=== PATIENT | female | born 1955 | race Caucasian/White ===

== ENCOUNTER 2021-03-24 21:01 | Emergency (ER) | payer OTHER, SELFPAY ==
--- NOTE | ~2021-03-24 | XR_ITS ---
XR chest 1V 03/24/2021 21:38 Indication: Weakness. Unable to move left side of body. Procedure: AP view of the chest Comparison: Comparison to multiple prior studies sequentially, with oldest reviewed study dated 06/13. Findings: Shallow inspiration with crowding of the pulmonary vessels. Left basilar airspace disease. Right-sided ventriculoperitoneal shunt. No significant effusion or pneumothorax. No acute osseous abn ormality. Impression: 1: Left basilar airspace disease, suspicious for pneumonia. Reviewed, dictated and finalized at location A. Impression: 1: Left basilar airspace disease, suspicious for pneumonia.
[2021-03-24 21:04] VITALS: BP 103/64; PULSE 90; RESP 16; TEMP 37.5; O2SAT 99
--- NOTE | 2021-03-24 21:07 | ECG_ITS ---
Measurements Intervals [place] Rate: 94 P: 28 NE: 168 QRS: 1 QRSD: 81 T: 10 QT: 331 QTc: 415 Interpretive Statements SINUS RHYTHM LOW QRS VOLTAGE IN PRECORDIAL LEADS DELAYED PRECORDIAL R/S TRANSITION BASELINE WANDER- II, III BORDERLINE ECG Electronically Signed On 03-25-2021 8:16:56 CDT by Richard Neal D.O.
[2021-03-24 21:52] LABS: Hematocrit 40.1 % (37.0-47.0); Hemoglobin 13.4 g/dL (12.0-15.0); Immature Granulocyte Absolute 0.01 K/mm3 (0.00-0.031); Immature Granulocyte Percent A 0.2 % (0-0.5); Lymphocytes Absolute Auto 0.51 K/mm3 (0.9-3.2); Lymphocytes Percent Auto 12.1 % (18.3-44.2); Mean Corpuscular HGB Conc 33.4 g/dl (32-36); Mean Corpuscular Hemoglobin 30.3 pg (26-34); Mean Corpuscular Volume 90.7 fl (80-100); Mean Platelet Volume 10.1 fl (7.4-10.4); Monocytes Absolute Auto 0.5 K/mm3 (0.1-0.6); Monocytes Percent Auto 11.7 % (2.6-8.5); Neutrophils Absolute Auto 3.2 K/mm3 (1.3-6.7); Platelet Count Result 174 k/mm3 (150-375); Red Blood Count 4.42 M/mm3 (4.2-5.4); Red Cell Distribution Width 12.7 % (11.5-14.5); White Blood Count 4.2 K/mm3 (4.5-10.0)
[2021-03-24 22:01] LABS: Alanine Aminotransferase 24 U/L (4-35); Albumin Level 4.4 g/dL (3.5-5.1); Alkaline Phosphatase 94 U/L (38-126); Anion Gap 9 mmol/L (8-16); Aspartate Amino Transferase 36 U/L (14-36); Bilirubin,Total 0.9 mg/dL (0.2-1.3); Blood Urea Nitrogen 13 mg/dL (7-17); Calcium 9.2 mg/dL (8.4-10.2); Carbon Dioxide 24 mmol/L (22-30); Chloride 99 mmol/L (98-107); Estimated CRCL calculation 67 ml/min; Estimated Glomerular Filt Rate > 60; Glucose 156 mg/dL (65-105); Potassium 5.2 mmol/L (3.4-5.0); Sodium 132 mmol/L (137-145)
[2021-03-25 00:51] VITALS: BP 124/69; PULSE 94; RESP 16; TEMP 37.5; O2SAT 92
--- NOTE | 2021-03-25 02:38 | ED.GENADULT ---
HPI - General Adult General Chief complaint: Weakness Stated complaint: weakness Time Seen by Provider: 03/25/21 02:16 History of Present Illness HPI narrative: Patient 65-year-old female presents emerged from with chief complaint of generalized weakness. The patient reports she has history of MS and reports that over the last 2 days she has been weaker than normal. Patient states prior to arrival in the emergency department she was so weak that she could barely hold herself up in her wheelchair. Patient reports that several days ago she started having a scratchy throat also has had some nasal discharge and also has had a cough. The patient reports she has been vaccinated for the COVID-19 virus using the [employer] Rajan vaccine. The patient reports that she has had no vomiting or diarrhea. Patient reports that she feels a little bit better at this time. Related Data Home Medications Medication Instructions Recorded Confirmed atorvastatin 10 mg tablet 20 mg PO DAILY tablet 12/05/20 calcium carbonate 600 mg (1,500 1 tablet PO DAILY tablet 12/05/20 12/05/20 mg)-vitamin D3 400 unit tablet isosorbide mononitrate 10 mg tablet 10 mg PO BID 12/05/20 12/05/20 Allergies Allergy/AdvReac Type Severity Reaction Status Date / Time ciprofloxacin Allergy Unknown Unknown Verified 12/05/20 14:09 hydrocortisone Allergy Unknown Unknown Verified 12/05/20 14:09 No Known Drug Allergies Allergy Unknown X Verified 12/05/20 14:09 Review of Systems Review of Systems: Narrative: A 10 system review of systems was completed on the patient and is negative except for what is stated in the HPI. Nursing and ancillary documentation was reviewed. 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, one eye low vision Osteomyelitis Pathological fracture, left femur, sequela Recurrent UTI Unable to ambulate Surgical History Surgical History Intracranial shunt Family History Family History Father Family history of diabetes mellitus in first degree relative Family history of heart disease in male family member before age 55 Mother Family history of diabetes mellitus in first degree relative Other Family history of tuberculosis Social History Social History Smoking packs per day: 1 Smoking cigarettes per day: 20.0 Years smoked: 20 Smoking pack-years: 20.00 Smoking status: Never smoker Tobacco type: cigarettes Second hand tobacco smoke exposure: No Smoking end date: 09/19/05 Alcohol intake: current Alcohol use details: rarely Substance use: never Substance use type: does not use Additional living arrangements comments: pt lives with Gender identity (if verbalized by the patient): Female Exam Narrative: Exam Narrative: GENERAL: Well-appearing, well-nourished, and in no acute distress. HEAD: Normocephalic, atraumatic. EYES: PERRLA and EOMI. ENT: Nares clear, no rhinorrhea or epistaxis. Mucous membranes moist. NECK: Supple. CHEST: Clear to auscultation. No respiratory distress. HEART: Regular rate and rhythm. No murmur heard. Normal peripheral pulses. ABDOMEN: Soft, nontender, nondistended, normal active bowel sounds. EXTREMITIES: Normal range of motion. No edema. SKIN: Warm, dry, no rash. NEURO: No focal deficits. Alert and oriented x3. PSYCH: Normal mood and affect. Course Course Emergency Course: Patient's chest x-ray shows evidence of a developing pneumonia. Patient's laboratory studies did not show any significant abnormalities. Currently the patient is afebrile vital signs are otherwise stable and s
[2021-03-25 03:41] VITALS: BP 118/66; PULSE 89; RESP 18; O2SAT 99
== END 2021-03-25 03:44 | disposition home or self-care (01) ==
PROVIDERS: Emergency Provider Emergency Medicine; PCP Family Medicine
DX: J18.9 Pneumonia, unspecified organism (principal); G35 Multiple sclerosis; E11.9 Type 2 diabetes mellitus without complications; E03.9 Hypothyroidism, unspecified; M86.9 Osteomyelitis, unspecified; Z87.440 Personal history of urinary (tract) infections; Z87.891 Personal history of nicotine dependence; Z79.84 Long term (current) use of oral hypoglycemic drugs; R94.31 Abnormal electrocardiogram [ECG] [EKG]
CPT/HCPCS: 36415; 71045; 80053; 85025; 93005; 99283

== ENCOUNTER 2021-03-28 09:08 | Inpatient (IN) | payer MEDICARE, OTHER, SELFPAY ==
[2021-03-28] VITALS (15 sets, daily range): BP systolic 126–157; BP diastolic 55–91; PULSE 79–121; RESP 20–28; TEMP 36.2–38.9; O2SAT 87–96; BMI 38.7
--- NOTE | ~2021-03-28 | XR_ITS ---
EXAMINATION: XR chest 1V portable DATE: 04/09/2021 01:58 INDICATION: High peak pressures TECHNIQUE: frontal view of the chest was obtained. COMPARISON: Chest radiograph dated 04/08/2021 FINDINGS: Endotracheal tube tip 2.9 cm above the ruben. Nasogastric tube extends below the gastroesophageal j unction with distal tip collimated off the study. Right upper extremity peripherally inserted central venous catheter (PICC) tip at the cephalad superior vena cava. Additional catheter tubing extending from the cephalad margin of the [id number] at the right neck to the caudal margin in the right up per quadrant likely representing a ventriculoperitoneal shunt. Airspace opacities and peribronchial cuffing in the bilateral mid and lower lung zones, slightly incr eased on the right. No pneumothorax or pleural effusion. The cardiomediastinal silhouette is normal. IMPRESSION: 1. Opacities and peribronchial cuffing in the bilateral mid and lower lung zones which could represen t mild pulmonary edema or pneumonia. Reviewed, dictated and finalized at location A. IMPRESSION: 1. Opacities and peribronchial cuffing in the bilateral mid and lower lung zone s which could represent mild pulmonary edema or pneumonia.
--- NOTE | ~2021-03-28 | XR_ITS ---
EXAMINATION: XR abdomen NG/feed tube insert INDICATION: OG placement TECHNIQUE: Portable AP KUB-NG at 1009 hours COMPARISON: 10/04/2017 and portable chest radiograph at zero 951 FINDINGS: The repositioned OG tube ends in the stomach. Diffuse lung disease is unchanged. A right up per extremity PICC ends in the superior vena cava. IMPRESSION: 1. OG tube in stomach. Reviewed, dictated and finalized at location A. IMPRESSION: 1. OG tube in stomach.
--- NOTE | ~2021-03-28 | XR_ITS ---
XR abdomen/kub 1V 04/14/2021 10:43 Indication: Vomiting Procedure: KUB Comparison: No prior studies for comparison. Findings: Bowel gas pattern is nonspecific with moderate gas throughout the colon. No abnormal calcif ications. Mild lumbar spondylosis.. NG tube tip in the stomach. There is a catheter in the pelvis. Impression: 1: Nonspecific bowel gas pattern. Moderate gas in the colon, possibly ileus. Reviewed, dictated and finalized at location A. Impression: 1: Nonspecific bowel gas pattern. Moderate gas in the colon, possibly ileus.
--- NOTE | ~2021-03-28 | XR_ITS ---
EXAMINATION: XR chest 1V portable DATE: 04/06/2021 06:34 INDICATION: Respiratory failure TECHNIQUE: frontal view of the chest was obtained. COMPARISON: Chest radiograph dated 04/05/2021 FINDINGS: Endotracheal tube tip 1.4 cm above the ruben. Nasogastric tube extends below into the stomach with distal tip collimated off the study. Right upper extremity peripherally inserted central venous gilles ter (PICC) tip at the mid superior vena cava. Portion of a likely right ventriculoperitoneal shunt e xtends from the right neck across the chest to the right upper quadrant. Interval increase in diffuse interstitial pattern throughout both lungs with a few peripheral Chuck B-lines consistent with mild pulmonary edema. Subtle more patchy groundglass opacities throughout the right lung and left mid and lower lung zones which based on prior CT more likely to reflect unchange d underlying COVID pneumonia. No pleural effusion or pneumothorax. The cardiomediastinal silhouette i s normal. Visualized bones and soft tissues are unremarkable. IMPRESSION: 1. Increase in diffuse bilateral lung disease likely representing unchanged COVID pneumonia with incr easing superimposed mild pulmonary edema. Reviewed, dictated and finalized at location A. IMPRESSION: 1. Increase in diffuse bilateral lung disease likely representing unchanged COV ID pneumonia with increasing superimposed mild pulmonary edema.
--- NOTE | ~2021-03-28 | XR_ITS ---
XR chest 1V portable 04/15/2021 05:53 Indication: Covid Pneumonia Procedure: AP portable chest Comparison: Comparison to multiple prior studies sequentially, with oldest reviewed study dated 04/11. Findings: PICC line tip in the SVC. Endotracheal tube tip 4.3 cm above the ruben. Heart size normal. Bilateral infiltrates of the mid and lower lung zones. No pneumothorax. No acute osseous abnormality . Impression: 1: Patchy bilateral infiltrates of the mid and lower lung zones, compatible with pneumonia. Reviewed, dictated and finalized at location A. Impression: 1: Patchy bilateral infiltrates of the mid and lower lung zones, compatible wit h pneumonia.
--- NOTE | ~2021-03-28 | XR_ITS ---
XR chest 1V portable 04/14/2021 05:54 Indication: Acute respiratory failure Procedure: AP portable chest Comparison: Comparison to multiple prior studies sequentially, with oldest reviewed study dated 04/10. Findings: Right-sided ventriculoperitoneal shunt. NG tube in the stomach. Endotracheal tube 3.8 cm ab ove the ruben. Heart size is normal. Diffuse bilateral airspace disease has improved. No significant effusion or pneumothorax. Impression: 1: Improving diffuse bilateral airspace disease which may represent resolving edema or pneumonia. Reviewed, dictated and finalized at location A. Impression: 1: Improving diffuse bilateral airspace disease which may represent resolving e roger or pneumonia.
--- NOTE | ~2021-03-28 | XR_ITS ---
EXAMINATION: XR chest 1V portable DATE: 04/02/2021 08:29 INDICATION: Respiratory failure. COVID-19 pneumonia. TECHNIQUE: A single frontal view of the chest was obtained. COMPARISON: Chest single view 04/01/2021, chest CT 03/31/2021 FINDINGS: There are patchy airspace opacities in all right lung zones and in left mid and lower lung zones with a lower lung predominance. No pleural effusion or pneumothorax. The heart size is normal. A right upper extremity peripherally inserted central venous catheter (PICC) is seen with tip in the superior vena cava. A right-sided ventriculoperitoneal shunt is noted. IMPRESSION: 1. Stable diffuse lung disease, consistent with COVID-19 pneumonia. Reviewed, dictated and finalized at location A.
--- NOTE | ~2021-03-28 | CT_ITS ---
EXAMINATION: CTA chest PE protocol DATE: 03/31/2021 14:20 INDICATION: Shortness of breath. TECHNIQUE: Computed tomography angiography (CTA) of the chest was performed with 100 mL Omnipaque-350 intravenous contrast timed to evaluate the pulmonary arteries. Coronal maximum intensity projection 3D-reconstructions were created by the technologist. Automated exposure control and iterative reconst ruction technique were employed. The dose-length product was 781.41 mGy-cm. COMPARISON: Chest CT 11/25/2017 FINDINGS: There are patchy groundglass opacities and crazy paving involving all lobes. There are depe ndent airspace opacities in the lower lobes and right upper lobe. No pleural effusion. The heart size is normal. There is a small pericardial effusion. There is no pulmonary embolus. There is mild media stinal and right hilar lymphadenopathy, likely reactive. Calcified mediastinal lymph nodes are consis tent with old granulomatous disease. Calcifications in the liver and spleen are consistent with old g ranulomatous disease. There is a gallstone in the gallbladder, which is normal in size. There is a ri ght-sided ventriculoperitoneal shunt. There is mild thoracic spondylosis. There is mild chronic heigh t loss of multiple vertebral bodies. IMPRESSION: 1. No pulmonary embolus. 2. Diffuse lung disease, consistent with COVID-19 pneumonia. 3. Small pericardial effusion. 4. Mild mediastinal and right hilar lymphadenopathy, likely reactive. Reviewed, dictated and finalized at location A.
--- NOTE | ~2021-03-28 | XR_ITS ---
EXAMINATION: XR chest ET placement INDICATION: Endotracheal tube placement TECHNIQUE: Portable AP chest at 0959 hours COMPARISON: 0808 hours FINDINGS: An endotracheal tube has been inserted which ends 1.3 cm above the ruben. A right upper ex tremity PICC ends with its tip in the superior vena cava. Patchy bilateral airspace opacities persist without significant change. The heart size is normal. A ventriculoperitoneal shunt catheter courses over the right hemithorax. The nasogastric tube projects in the cervical region. IMPRESSION: 1. Endotracheal tube ending approximately 1.3 cm above the ruben. 2. Nasogastric tube projecting in the cervical region. 3. Diffuse lung disease without significant change, consistent with pneumonia and/or pulmonary edema. Reviewed, dictated and finalized at location A. IMPRESSION: 1. Endotracheal tube ending approximately 1.3 cm above the ruben. 2. Nasogastric tube projecting in the cervical region. 3. Diffuse lung disease without significant change, consistent with pneumonia a nd/or pulmonary edema.
--- NOTE | ~2021-03-28 | XR_ITS ---
EXAMINATION: XR chest 1V portable DATE: 04/08/2021 05:49 INDICATION: Pneumonia and acute respiratory failure TECHNIQUE: frontal view of the chest was obtained. COMPARISON: Chest radiograph dated 04/07/2021 FINDINGS: Endotracheal tube tip 1.6 cm above the ruben. Nasogastric tube extends below the left hemidiaphragm with distal tip collimated off the study. Right upper extremity peripherally inserted central venous catheter (PICC) tip at the mid superior vena cava. Partially visualized likely ventriculoperitoneal shunt extending from the cephalad margin of the [id number] at the right neck to the inferior philippe in of the right upper quadrant. Again seen are patchy airspace opacities throughout both lungs with interval progression in the left perihilar region. No pleural effusion or pneumothorax. The cardiomediastinal silhouette is normal. IMPRESSION: 1. Diffuse bilateral lung disease with interval worsening in the left perihilar region which could re present pneumonia and/or pulmonary edema. Reviewed, dictated and finalized at location A. IMPRESSION: 1. Diffuse bilateral lung disease with interval worsening in the left perihilar region which could represent pneumonia and/or pulmonary edema.
--- NOTE | ~2021-03-28 | XR_ITS ---
XR chest 1V portable DATE: 04/12/2021 05:30 INDICATION: Covid 19 pneumonia, acute respiratory failure TECHNIQUE: Portable AP chest on 04/12/2021 at 0510 hours COMPARISON: 08/08/2021 portable AP chest at 0510 hours FINDINGS: ET tube is identified in position. NG tube in stomach. Right upper extremity PIC catheter overlies superior vena cava. There are increased extensive diffuse bilateral pulmonary infiltrates. Heart size appears normal. No pleural effusion or pneumothorax is evident. IMPRESSION: Increased diffuse bilateral pulmonary infiltrates; differential diagnosis includes pneumo amelia and possibly superimposed pulmonary edema. Reviewed, dictated and finalized at location A. IMPRESSION: Increased diffuse bilateral pulmonary infiltrates; differential navin gnosis includes pneumonia and possibly superimposed pulmonary edema.
--- NOTE | ~2021-03-28 | XR_ITS ---
EXAMINATION: XR chest 2V DATE: 03/28/2021 09:39 INDICATION: Shortness of breath. TECHNIQUE: Frontal and lateral views of the chest were obtained. COMPARISON: Chest single view 706/21, chest CT 11/25/2017 FINDINGS: There are airspace opacities in the mid and lower lung zones. No pleural effusion or pneumo thorax. The heart size is normal. There is a right-sided ventriculoperitoneal shunt. IMPRESSION: 1. Worsened airspace opacities in the mid and lower lung zones, consistent with atelectasis versus pn eumonia. Reviewed, dictated and finalized at location A. IMPRESSION: 1. Worsened airspace opacities in the mid and lower lung zones, consistent with atelectasis versus pneumonia.
--- NOTE | ~2021-03-28 | XR_ITS ---
EXAMINATION: XR chest 1V portable DATE: 04/10/2021 06:38 INDICATION: COVID 19 pneumonia. Acute respiratory failure. TECHNIQUE: frontal view of the chest was obtained. COMPARISON: Chest radiograph dated FINDINGS: Endotracheal tube tip 4.0 cm above the ruben. Nasogastric tube extends below the gastroesophageal ju nction with distal tip collimated off the study. Right upper extremity peripherally inserted central venous catheter (PICC) tip at the cephalad superior vena cava. Additional catheter tubing extending f rom the cephalad margin of the [id number] at the right neck to the caudal margin in the right uppe r quadrant likely representing a ventriculoperitoneal shunt. Diffuse increased interstitial pattern throughout both lungs with some improvement in the prior patch y airspace opacities. No pleural effusion or pneumothorax. The cardiomediastinal silhouette is normal . IMPRESSION: 1. Diffuse increased interstitial pattern with some improvement in more focal patchy airspace opaciti es most likely improving mild to moderate pulmonary edema with differential including pneumonia. Reviewed, dictated and finalized at location A. IMPRESSION: 1. Diffuse increased interstitial pattern with some improvement in more focal p atchy airspace opacities most likely improving mild to moderate pulmonary edema with differential including pneumonia.
--- NOTE | ~2021-03-28 | XR_ITS ---
XR chest 1V portable 04/16/2021 05:30 Indication: Respiratory failure Procedure: AP portable chest Comparison: Comparison to multiple prior studies sequentially, with oldest reviewed study dated 04/12. Findings: Endotracheal tube tip 3.4 cm above the ruben. NG tube in the stomach. Right-sided ventriculoperitone al shunt. Heart size normal. Bilateral airspace disease is unchanged. Impression: 1: Stable diffuse bilateral airspace disease which may represent edema or pneumonia. Reviewed, dictated and finalized at location A. Impression: 1: Stable diffuse bilateral airspace disease which may represent edema or pneum onia.
--- NOTE | ~2021-03-28 | XR_ITS ---
XR chest 1V portable 04/13/2021 05:45 Indication: Respiratory failure Procedure: AP portable chest Comparison: Comparison to multiple prior studies sequentially, with oldest reviewed study dated 04/09. Findings: Right subclavian PICC line tip in the SVC. Endotracheal tube tip 4.2 cm above the ruben. E xtensive bilateral infiltrates of the mid and lower lung zones. There is a right sided shunt catheter . No significant effusion or pneumothorax. NG tube in the stomach. Impression: 1: Persistent airspace disease predominantly involving the mid and lower lung zones which may represe nt pneumonia or pulmonary edema. Reviewed, dictated and finalized at location A. Impression: 1: Persistent airspace disease predominantly involving the mid and lower lung z ones which may represent pneumonia or pulmonary edema.
--- NOTE | ~2021-03-28 | US_ITS ---
EXAMINATION: US venous doppler [facility] DATE: 03/29/2021 08:46 INDICATION: Lower limb edema. TECHNIQUE: Grayscale ultrasound images without and with compression and Doppler ultrasound images of the bilateral lower extremity veins were obtained. COMPARISON: Ultrasound 11/25/2017 FINDINGS: The visualized portions of right common femoral vein, profunda (deep) femoral vein, femoral vein, pop liteal vein, posterior tibial veins, and greater saphenous vein outflow are patent. The visualized portions of left common femoral vein, profunda femoral vein, femoral vein, popliteal v ein, posterior tibial veins, and greater saphenous vein outflow are patent. IMPRESSION: 1. No deep venous thrombosis. Reviewed, dictated and finalized at location A.
--- NOTE | ~2021-03-28 | XR_ITS ---
EXAMINATION: XR chest 1V portable INDICATION: Respiratory failure TECHNIQUE: Portable AP chest at 0524 hours COMPARISON: 04/06/2021 FINDINGS: The endotracheal tube ends approximately 3.6 cm above the ruben. The nasogastric tube is f ollowed as far as the stomach. Its tip is beyond the inferior margin of the radiograph. A right upper extremity PICC ends with its tip in the midsuperior vena cava. Ventriculoperitoneal shunt catheter t ubing courses over the right hemithorax. Diffuse airspace opacities persist in all lung zones with sl ight worsening in the upper lung zones. There is no pleural effusion or pneumothorax. The cardiomedia stinal silhouette is stable. IMPRESSION: 1. Diffuse lung disease with interval worsening in the upper lung zones, consistent with pneumonia an d/or pulmonary edema and/or acute respiratory distress syndrome (ARDS). Reviewed, dictated and finalized at location D. IMPRESSION: 1. Diffuse lung disease with interval worsening in the upper lung zones, consis tent with pneumonia and/or pulmonary edema and/or acute respiratory distress sy ndrome (ARDS).
--- NOTE | ~2021-03-28 | XR_ITS ---
EXAMINATION: XR chest 1V portable DATE: 04/01/2021 06:01 INDICATION: COVID-19 pneumonia. TECHNIQUE: A single frontal view of the chest was obtained. COMPARISON: Chest 2 views 03/28/2021 FINDINGS: There are airspace opacities and interstitial opacities in all right lung zones and in left mid and lower lung zones. No pleural effusion or pneumothorax. The heart size is normal. A right-stella ed ventricular peritoneal shunt is noted. IMPRESSION: 1. Worsened diffuse lung disease, consistent with COVID-19 pneumonia. Reviewed, dictated and finalized at location A.
--- NOTE | ~2021-03-28 | XR_ITS ---
XR chest 1V portable DATE: 04/11/2021 05:32 INDICATION: Acute respiratory failure. Covid 19 pneumonia TECHNIQUE: Portable AP chest on 04/07/2021 at 0510 hours COMPARISON: 04/10/2021 portable AP chest at 0624 hours FINDINGS: ET tube tip in satisfactory position 2 cm above ruben. NG tube in stomach. Right upper extremity PIC catheter tip overlies the upper aspect of the superior vena cava. Diffuse patchy bilateral pulmonary infiltrates, most prominent in the lower lung zones, mildly increa sed since 04/10/2021. IMPRESSION: Mildly increased bilateral patchy pulmonary infiltrates Reviewed, dictated and finalized at location A.
--- NOTE | ~2021-03-28 | XR_ITS ---
EXAMINATION: XR chest 1V portable INDICATION: Respiratory failure TECHNIQUE: Portable AP chest at 0814 hours COMPARISON: 04/16/2021 FINDINGS: The endotracheal tube ends approximately 1.2 cm above the ruben. The nasogastric tube has been removed. A right upper extremity PICC ends with its tip in the proximal superior vena cava. Ther e are diffuse opacities in all lung zones with interval improvement. Catheter tubing projects over th e right neck and right hemithorax. There is no pleural effusion or pneumothorax. The cardiomediastina l silhouette is stable. IMPRESSION: 1. Diffuse lung disease with interval improvement, consistent with pneumonia and/or pulmonary edema a nd/or acute respiratory distress syndrome (ARDS). 2. Endotracheal tube 1.2 cm above the ruben. Reviewed, dictated and finalized at location A. IMPRESSION: 1. Diffuse lung disease with interval improvement, consistent with pneumonia an d/or pulmonary edema and/or acute respiratory distress syndrome (ARDS). 2. Endotracheal tube 1.2 cm above the ruben.
--- NOTE | ~2021-03-28 | XR_ITS ---
EXAMINATION: XR chest 1V portable INDICATION: Respiratory failure TECHNIQUE: Portable AP chest at 0808 hours COMPARISON: 04/02/2021 FINDINGS: A right upper extremity PICC ends with its tip in the distal superior vena cava. There are patchy opacities throughout the lungs with interval worsening in the mid and lower lung zones. The he art size is normal. Ventriculoperitoneal shunt catheter tubing courses over the right hemithorax. IMPRESSION: 1. Diffuse lung disease with slight interval worsening, consistent with pneumonia and/or pulmonary ed nathalia and/or acute respiratory distress syndrome (ARDS). Reviewed, dictated and finalized at location A. IMPRESSION: 1. Diffuse lung disease with slight interval worsening, consistent with pneumon ia and/or pulmonary edema and/or acute respiratory distress syndrome (ARDS).
--- NOTE | 2021-03-28 09:18 | ECG_ITS ---
Measurements Intervals [place] Rate: 109 P: 3 MI: 120 QRS: 4 QRSD: 85 T: 16 QT: 325 QTc: 439 Interpretive Statements SINUS TACHYCARDIA CONSIDER INFERIOR INFARCT, AGE INDETERMINATE ABNORMAL ECG Electronically Signed On 03-28-2021 15:14:57 CDT by Richard Neal D.O.
--- NOTE | 2021-03-28 09:18 | ED.WEAKNESS ---
HPI - Weakness General Chief complaint: Weakness Stated complaint: weak, hx pneumonia Time Seen by Provider: 03/28/21 09:14 Source: patient and family Mode of arrival: wheelchair Limitations: no limitations History of Present Illness HPI Narrative: Patient is a 65-year-old female with a history of multiple sclerosis, recent diagnosis of pneumonia seen Tuesday at this emergency department, who presents for evaluation of shortness of breath, cough and worsening of symptoms. Patient has been compliant with her outpatient antibiotic regimen, states she has developed increased shortness of breath as well as worsening weakness. Patient but has been febrile. She reports productive cough and difficulty breathing. Patient denies any chest pain or abdominal pain. Weakness has increased from baseline. Patient's brought her back to the emergency department today given worsening of symptoms on oral antibiotics. Patient has been vaccinated for Covid with Raj[employer] Rajan vaccine. Patient states she has never been tested for Covid. Related Data Home Medications Medication Instructions Recorded Confirmed atorvastatin 10 mg tablet 20 mg PO DAILY tablet 12/05/20 calcium carbonate 600 mg (1,500 1 tablet PO DAILY tablet 12/05/20 12/05/20 mg)-vitamin D3 400 unit tablet isosorbide mononitrate 10 mg tablet 10 mg PO BID 12/05/20 12/05/20 azithromycin 250 mg PO DAILY 03/28/21 03/28/21 Allergies Allergy/AdvReac Type Severity Reaction Status Date / Time ciprofloxacin Allergy Unknown Unknown Verified 03/28/21 09:26 Review of Systems Review of Systems: Narrative: CONSTITUTIONAL: Reports fever and chills EYES: Denies visual changes, redness, or discharge. ENT: Reports rhinorrhea and congestion CARDIOVASCULAR: Denies chest pain, palpitations, or edema. RESPIRATORY: Reports cough and shortness of breath GASTROINTESTINAL: Denies abdominal pain, nausea, vomiting, or diarrhea. GENITOURINARY: Denies dysuria or hematuria. SKIN: Denies rash or itching. MUSCULOSKELETAL: Denies back pain, joint pain, or myalgia. NEUROLOGIC: Denies headache, numbness, or weakness. 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, one eye low vision Osteomyelitis Pathological fracture, left femur, sequela Recurrent UTI Unable to ambulate Surgical History Surgical History Intracranial shunt Family History Family History Father Family history of diabetes mellitus in first degree relative Family history of heart disease in male family member before age 55 Mother Family history of diabetes mellitus in first degree relative Other Family history of tuberculosis Social History Social History Smoking packs per day: 1 Smoking cigarettes per day: 20.0 Years smoked: 20 Smoking pack-years: 20.00 Smoking status: Never smoker Tobacco type: cigarettes Second hand tobacco smoke exposure: No Smoking end date: 09/19/05 Alcohol intake: current Alcohol use details: rarely Substance use: never Substance use type: does not use Additional living arrangements comments: pt lives with Gender identity (if verbalized by the patient): Female Exam Narrative: Exam Narrative: GENERAL: Awake, alert, ill-appearing HEAD: Normocephalic, atraumatic. EYES: PERRLA and EOMI. ENT: Nares clear, no rhinorrhea or epistaxis. Mucous membranes dry. NECK: Supple. CHEST: Hypoxic on room air, oxygen saturation 87%, tachypneic, mildly increased work of breathing, coarse breath sounds with crackles in the bilateral lower bases HEART: Tachycardic rate, sinus rhyt
[2021-03-28 09:37] LABS: Hemoglobin 13.3 g/dL (12.0-15.0); Immature Granulocyte Absolute 0.01 K/mm3 (0.00-0.031); Immature Granulocyte Percent A 0.4 % (0-0.5); Lymphocytes Absolute Auto 0.47 K/mm3 (0.9-3.2); Lymphocytes Percent Auto 19.9 % (18.3-44.2); Mean Corpuscular HGB Conc 33.3 g/dl (32-36); Mean Corpuscular Hemoglobin 30.6 pg (26-34); Mean Platelet Volume 10.4 fl (7.4-10.4); Monocytes Absolute Auto 0.1 K/mm3 (0.1-0.6); Monocytes Percent Auto 4.2 % (2.6-8.5); Neutrophils Absolute Auto 1.8 K/mm3 (1.3-6.7); Neutrophils Percent Auto 75.5 % (45.5-73.1); Platelet Count Result 144 k/mm3 (150-375); Red Blood Count 4.35 M/mm3 (4.2-5.4); Red Cell Distribution Width 12.8 % (11.5-14.5); White Blood Count 2.4 K/mm3 (4.5-10.0)
[2021-03-28 09:47] LABS: Prothrombin Time 12.9 Seconds (11.1-14.7)
[2021-03-28 09:48] LABS: Alanine Aminotransferase 21 U/L (4-35); Albumin Level 4.2 g/dL (3.5-5.1); Alkaline Phosphatase 88 U/L (38-126); Anion Gap 13 mmol/L (8-16); Aspartate Amino Transferase 51 U/L (14-36); Bilirubin,Total 0.8 mg/dL (0.2-1.3); Blood Urea Nitrogen 13 mg/dL (7-17); Calcium 8.6 mg/dL (8.4-10.2); Carbon Dioxide 21 mmol/L (22-30); Chloride 101 mmol/L (98-107); Estimated CRCL calculation 76 ml/min; Estimated Glomerular Filt Rate > 60; Glucose 121 mg/dL (65-105); Partial Thromboplastin Time 37.1 SECONDS (22.3-36.8); Potassium 4.1 mmol/L (3.4-5.0); Sodium 135 mmol/L (137-145)
[2021-03-28] MEDS: SODIUM CHLORIDE 0.9% IV 1,000 ML 999 ML IV CONT ×2 (09:55→10:44)
[2021-03-28 09:59] LABS: Troponin I < 0.012 ng/mL (0.000-0.034)
[2021-03-28 10:15] LABS: Lactic Acid Reflex 0.8 mmol/L (0.7-2.1)
[2021-03-28 10:18] LABS: Thyroid Stimulating Hormone 0.686 uIU/mL (0.465-4.680)
[2021-03-28 10:36] LABS: Add Urine Microscopic? YES; Appearance Urine Clear (Clear); Bacteria Urine Trace /hpf; Bilirubin Urine Negative (Negative); Blood Urine Negative (Negative); Color Urine Amber (Yellow); Glucose Urine UA Negative (Negative); Ketones Urine 1+ mg/dL (Negative); Leukocyte Esterase Ur Negative LEU/UL (Negative); Mucus Urine Rare /lpf; Nitrate Urine Negative (Negative); Protein Urine 2+ mg/dL (Negative); RBC Urine 0-2 /hpf (0-2); Squamous Epithelial Cell Urine Occasional /hpf (Few); WBC Urine 0-3 /hpf
[2021-03-28 10:37] LABS: Specific Grav Ur 1.031 (1.001-1.035)
[2021-03-28] MEDS: SODIUM CHLORIDE 0.9% IV 1,000 ML 30 ML IV CONT (10:44)
[2021-03-28 10:45] LABS: Alveolar/Arterial O2 Gradient 133.9 mmHg; Base Excess ABG -2.8 mEq/l (+/-2.0); Carboxyhemoglobin 0.7 % THb (0-2.0); Fractional Inspired Oxygen 34 %; HCO3 ABG 21.3 mEq/l (22.0-26.0); Methemoglobin ABG 0.5 %THb (0-1.5); Oxygen Content ABG 16.7 %vol (16.0-22.0); Oxygen Saturation ABG 93.8 % (95.0-100.0); Oxyhemoglobin 91.5 % THb (90.0-100.0); PCO2 ABG 34.9 mmHg (35.0-45.0); PO2 ABG 67.9 mmHg (80.0-100.0); Reduced Hemoglobin 7.3 %THb (0-5.0); pH ABG 7.404 (7.350-7.450)
[2021-03-28 10:46] LABS: Device NASAL CANNULA; Liters per Minute 3.5 LPM; Modified Allen's Test Pass; Site Drawn RIGHT RADIAL
--- NOTE | 2021-03-28 13:20 | ADMGEN ---
This patient, Danielle Quesada, was admitted to IMU Room 212-01. Patient/family oriented to hospital policies and general routines including ID bracelet, bed and alarms, visiting hours, pain management, procedures, bathroom and other care routines, personal items, smoking policy, room service/diet, and visiting hours. Information on how to activate the Rapid Response Team has been discussed. Patient/Family are encouraged to report perceived risks to care and to ask questions if they do not understand what they are told or what they should do.
--- NOTE | 2021-03-28 14:00 | PM.IMHP ---
H&P: HPI History of Present Illness Date/Time: 03/28/21 14:00 <Funmilayo Pickard PA-C - Last Filed: 03/28/21 22:33> Chief Complaint: Increasing weakness. <Funmilayo Pickard PA-C - Last Filed: 03/28/21 22:33> Narrative: This is a 65-year-old female with multiple sclerosis who presented to the emergency department earlier today via private vehicle from home for evaluation of increased weakness. Se was seen in this ER in the [facility] on Tuesday with weakness x2 days, nasal discharge, and scratchy throat. She was diagnosed with pneumonia and discharged on cefdinir and azithromycin. Despite taking her antibiotic she has continued to feel worse and now has a productive cough and mild shortness breath. Her appetite has not been very good and she has had some nausea though she denies emesis to me. No anosmia and dysgeusia. Some loose stools couple of days ago but that seems to have resolved. No dysuria, urgency, or urinary frequency. No open wounds or skin issues. She denies dysphagia and concerns for aspiration. She received the [employer]an [employer] COVID vaccine in November 2020. No known exposure to those positive for COVID nor does she have any sick contacts. <Funmilayo Pickard PA-C - Last Filed: 03/28/21 22:33> Review of Systems Review of Systems: Narrative: Twelve systems were reviewed with pertinent positives and negatives as per HPI. Patient has left hemiparesis for MS and is dependent on her for most ADLs. No abdominal pain, back pain, or joint pain. No rash. She denies headache and neck ache. She denies chest pain, pleuritic pain, and palpitations. She has chronic lower extremity edema which is unchanged. No history of venous thromboembolism. Except as documented, all other systems were reviewed and are negative. <Funmilayo Pickard PA-C - Last Filed: 03/28/21 22:33> [facility] Past Medical History Medical History: Medical History (Updated 03/28/21 @ 20:49 by Funmilayo Pickard PA-C) Coronary artery disease Inferior STEMI on 11/25/2017 Dyslipidemia Hypertension Hypothyroidism Multiple sclerosis Stopped responding to treatment. Dependent for most ADLs due to left hemiparesis. 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 Osteomyelitis Left femur following fracture. 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 Recurrent UTI Subarachnoid hemorrhage (2012) Angiogram negative. Type 2 diabetes mellitus Hemoglobin A1c was 6.1% in November 2020. <Funmilayo Pickard PA-C - Last Filed: 03/28/21 22:33> Surgical History Surgical History: Surgical History History of bilateral cataract extraction History of cardiac catheterization (11/25/17) Balloon angioplasty with stent placement to the RCA and proximal LAD. History of creation of ventriculoperitoneal shunt History of dilation and curettage History of orthopedic surgery Knee arthroscopy. ORIF left femur fracture. History of thyroidectomy (1988) History of tonsillectomy History of tubal ligation <Funmilayo Pickard PA-C - Last Filed: 03/28/21 22:33> Family History Family History: Family History Father Family history of diabetes mellitus in first degree relative Family history of heart disease in male family member before age 55 Mother Family history of diabetes mellitus in first degree relative Other Family history of tuberculosis <Funmilayo Pickard PA-C - Last Filed: 03/28/21 22:33> Social History Social History: Social History (Updated 03/28/21 @ 20:55 by Funmilayo Pickard PA-C) Social History: Surrogate decision maker: Yonas Quesada, spouse. Code status: Full code. Smoking packs per day: 1 Smoking cigarettes per day: 20.0 Years smoked: 20 Smoking pack-years: 20.00 Smoking status: Former smoker Tobacco type: cigarette
[2021-03-28 17:17] LABS: Glucose Point of Care 120 mg/dl (65-105)
[2021-03-28 21:20] LABS: SARS-CoV-2 RNA PCR Positive
[2021-03-28] MEDS: guaiFENesin 12 HR 600 MG TABCR PO (22:44)
[2021-03-28 22:55] LABS: Anion Gap 13 mmol/L (8-16); Blood Urea Nitrogen 9 mg/dL (7-17); Calcium 8.3 mg/dL (8.4-10.2); Carbon Dioxide 20 mmol/L (22-30); Chloride 103 mmol/L (98-107); Estimated CRCL calculation 87 ml/min; Estimated Glomerular Filt Rate > 60; Glucose 108 mg/dL (65-105); Magnesium 1.7 mg/dL (1.6-2.3); Potassium 3.9 mmol/L (3.4-5.0); Sodium 136 mmol/L (137-145)
[2021-03-28 23:01] LABS: Lactate Dehydrogenase 888 U/L (313-618)
[2021-03-28 23:02] LABS: D Dimer 2.47 ug/mL (<0.48)
[2021-03-28] MEDS: DEXAMETHASONE SOD PHOS INJ 4 MG/ML VIAL 6 MG IV PUSH (23:34)
[2021-03-28 23:35] LABS: Alanine Aminotransferase 17 U/L (4-35); Estimated CRCL calculation 87 ml/min; Estimated Glomerular Filt Rate > 60
[2021-03-29] VITALS (18 sets, daily range): BP systolic 136–151; BP diastolic 53–73; PULSE 82–121; RESP 16–28; TEMP 36.6–38.2; O2SAT 88–97
[2021-03-29 00:09] LABS: Procalcitonin 0.2 ng/mL
[2021-03-29 01:37] LABS: Hemoglobin A1C 6.4 % (<5.7)
[2021-03-29] MEDS: REMDESIVIR 200 MG/NS 250 ML 200 MG/250 ML BAG 250 MG IVPB (01:40)
[2021-03-29] MEDS: LEVOTHYROXINE SODIUM 150 MCG TABLET PO (05:15)
[2021-03-29 05:17] LABS: Hematocrit 39.5 % (37.0-47.0); Hemoglobin 12.8 g/dL (12.0-15.0); Mean Corpuscular HGB Conc 32.4 g/dl (32-36); Mean Corpuscular Volume 92.7 fl (80-100); Mean Platelet Volume 10.5 fl (7.4-10.4); Platelet Count Result 146 k/mm3 (150-375); Red Blood Count 4.26 M/mm3 (4.2-5.4); Red Cell Distribution Width 12.6 % (11.5-14.5); White Blood Count 2.9 K/mm3 (4.5-10.0)
[2021-03-29 05:51] LABS: Alanine Aminotransferase 18 U/L (4-35); Albumin Level 3.7 g/dL (3.5-5.1); Alkaline Phosphatase 87 U/L (38-126); Anion Gap 14 mmol/L (8-16); Aspartate Amino Transferase 44 U/L (14-36); Bilirubin,Total 0.6 mg/dL (0.2-1.3); Blood Urea Nitrogen 8 mg/dL (7-17); Calcium 8.1 mg/dL (8.4-10.2); Carbon Dioxide 17 mmol/L (22-30); Chloride 105 mmol/L (98-107); Estimated CRCL calculation 88 ml/min; Estimated Glomerular Filt Rate > 60; Glucose 146 mg/dL (65-105); Lactate Dehydrogenase 710 U/L (313-618); Magnesium 1.7 mg/dL (1.6-2.3); Potassium 3.8 mmol/L (3.4-5.0); Sodium 136 mmol/L (137-145)
[2021-03-29 06:01] LABS: CRP 21.8 mg/dL (<1.0)
[2021-03-29] MEDS: guaiFENesin 12 HR 600 MG TABCR PO ×2 (08:59→20:40)
[2021-03-29] MEDS: ISOSORBIDE MONONITRATE 30 MG TAB.ER.24H PO (09:00)
[2021-03-29] MEDS: ATORVASTATIN 20 MG TABLET PO (09:00)
[2021-03-29 09:26] LABS: Glucose Point of Care 151 mg/dl (65-105)
[2021-03-29] MEDS: SODIUM CHLORIDE 0.9% IV 250 ML 30 ML IV CONT (10:18)
[2021-03-29] MEDS: DEXAMETHASONE SOD PHOS INJ 4 MG/ML VIAL 6 MG IV PUSH (10:59)
[2021-03-29 11:01] LABS: Thyroid Stimulating Hormone Reflex 0.273 uIU/mL (0.465-4.68)
[2021-03-29] MEDS: TUBING, BLOOD PLUM PUMP TUBING 1 EACH XX (11:08)
[2021-03-29 11:32] LABS: Free T4 Free Thyroxine Reflex 1.77 ng/dL (0.78-2.19)
[2021-03-29 12:03] LABS: Glucose Point of Care 137 mg/dl (65-105)
[2021-03-29 12:15] LABS: Total Triiodothyronine (T3) 0.36 NG/ML (0.97-1.69)
--- NOTE | 2021-03-29 16:12 | PM.IMPN ---
Progress Note: A&P Assessment and Plan (1) Acute respiratory failure with hypoxia: Code(s): J96.01 - Acute respiratory failure with hypoxia Status: Acute Assessment and Plan: 03/29/21 16:12 patient is 65-year-old female with history of MS patient initially seen in emergency depart on Tuesday was diagnosed with pneumonia at that time patient was discharged on oral antibiotics however patient's symptoms were not improving she was more short of breath presented emergency depart and the CT scan showed worsening pneumonia, though patient has received COVID vaccine is also positive COVID-19, patient is treated with Cefepime azithromycin for pneumonia and COVID-19 patient is started on dexamethasone 6mg, 10/29 and remdesivir 10/24 and also received convalescent plasma, patient has had fever and remains on 5 L nasal cannula, patient denies any cough shortness of breath, will continue to monitor further recommendation to follow. (2) Pneumonia: Code(s): J18.9 - Pneumonia, unspecified organism Status: Acute Assessment and Plan: patient has worsening community-acquired pneumonia plan is above (3) Hypertension: Code(s): I10 - Essential (primary) hypertension Status: Acute Assessment and Plan: continue home regimen and monitor (4) Hypothyroidism: Code(s): E03.9 - Hypothyroidism, unspecified Status: Acute Assessment and Plan: continue home regimen and (5) Type 2 diabetes mellitus: Code(s): E11.9 - Type 2 diabetes mellitus without complications Status: Acute Assessment and Plan: will continue home regimen and monitor (6) Multiple sclerosis: Code(s): G35 - Multiple sclerosis Status: Acute Assessment and Plan: remains clinically Additional Plan Patient presents today with increasing weakness and shortness of breath, found to have worsening pneumonia on imaging. Although she did receive the Rajan Rajan COVID vaccine in November I think it would be appropriate to swab her for COVID thus she will remain in isolation pending those results. She has been started on azithromycin and ceftriaxone. Encourage incentive spirometry. Mucinex And Cornet to help mobilize secretions. She is currently requiring 5 L of oxygen, presumably due to the pneumonia, Though given her limited mobility in edema pulmonary embolism is a consideration. Will check venous Doppler ultrasounds as well as D-dimer and consider CTA of the chest. Her blood pressures were reviewed and they are stable. Hold metformin while hospitalized as she may need contrast. Initiate sliding scale insulin, Accu-Cheks, and hypoglycemic protocol. Continue levothyroxine and check TSH. The rest of her home medications will be reviewed and resumed as appropriate. Subjective Date/time seen: 03/29/21 16:12 patient is 65-year-old female with history of MS patient initially seen in emergency depart on Tuesday was diagnosed with pneumonia at that time patient was discharged on oral antibiotics however patient's symptoms were not improving she was more short of breath presented emergency depart and the CT scan showed worsening pneumonia, though patient has received COVID vaccine is also positive COVID-19, patient is treated with Cefepime azithromycin for pneumonia and COVID-19 patient is started on dexamethasone 6mg, 2/10 and remdesivir 2/ and also received convalescent plasma, patient has had fever and remains on 5 L nasal cannula, patient denies any cough shortness of breath, will continue to monitor further recommendation to follow. Review of Systems Review of Systems: All systems reviewed & are unremarkable except as noted in HPI and below Exam Narrative: Exam Narrative: moderately obese Patient is comfortable, NAD HEENT: eyes are clear and none icteric LUNGS: normal respiratory effort ABD: distended Lower extremities: no edema SKIN: nonjaundiced Neuro: grossly intact and nor
[2021-03-29 17:12] LABS: Glucose Point of Care 189 mg/dl (65-105)
[2021-03-29 22:14] LABS: Glucose Point of Care 199 mg/dl (65-105)
[2021-03-29] MEDS: REMDESIVIR 100 MG/NS 250 ML 100 MG/250 ML BAG 250 MG IVPB (23:50)
[2021-03-30] VITALS (21 sets, daily range): BP systolic 130–146; BP diastolic 49–80; PULSE 75–99; RESP 16–22; TEMP 36.3–37.2; O2SAT 85–93
[2021-03-30 05:23] LABS: Alanine Aminotransferase 18 U/L (4-35); Estimated CRCL calculation 119 ml/min; Estimated Glomerular Filt Rate > 60
[2021-03-30 05:24] LABS: Prothrombin Time 12.6 Seconds (11.1-14.7)
[2021-03-30] MEDS: LEVOTHYROXINE SODIUM 150 MCG TABLET PO (06:02)
[2021-03-30] MEDS: DEXAMETHASONE SOD PHOS INJ 4 MG/ML VIAL 6 MG IV PUSH (08:25)
[2021-03-30] MEDS: ATORVASTATIN 20 MG TABLET PO (08:26)
[2021-03-30] MEDS: guaiFENesin 12 HR 600 MG TABCR PO ×2 (08:26→20:47)
[2021-03-30] MEDS: ISOSORBIDE MONONITRATE 30 MG TAB.ER.24H PO (08:26)
[2021-03-30 08:30] LABS: Glucose Point of Care 161 mg/dl (65-105)
[2021-03-30 09:35] LABS: SARS-CoV-2 IgG Reactive (NonReactive)
[2021-03-30 11:52] LABS: Glucose Point of Care 176 mg/dl (65-105)
--- NOTE | 2021-03-30 16:33 | PM.IMPN ---
Progress Note: A&P Assessment and Plan (1) Acute respiratory failure with hypoxia: Code(s): J96.01 - Acute respiratory failure with hypoxia Status: Acute Assessment and Plan: 03/30/21 16:33 03/29patient is 65-year-old female with history of MS patient initially seen in emergency depart on Tuesday was diagnosed with pneumonia at that time patient was discharged on oral antibiotics however patient's symptoms were not improving she was more short of breath presented emergency depart and the CT scan showed worsening pneumonia, though patient has received COVID vaccine is also positive COVID-19, patient is treated with Cefepime azithromycin for pneumonia and COVID-19 patient is started on dexamethasone 6mg, 10 and remdesivir 2/5 and also received convalescent plasma, patient has had fever and remains on 5 L nasal cannula, patient denies any cough shortness of breath, will continue to monitor further recommendation to follow. 711 patient with a COVID 19 as well as community-acquired pneumonia for which patient is being treated with Cefepime and azithromycin, COVID-19 patient started on dexamethasone 6mg 10, remdesivir 3/5 as well as received convalescent plasma however patient's symptoms are not improving and requiring high-flow oxygen, will consult pulmonology and further recommendation to follow. (2) Pneumonia: Code(s): J18.9 - Pneumonia, unspecified organism Status: Acute Assessment and Plan: patient has worsening community-acquired pneumonia plan is above (3) Hypertension: Code(s): I10 - Essential (primary) hypertension Status: Acute Assessment and Plan: continue home regimen and monitor (4) Hypothyroidism: Code(s): E03.9 - Hypothyroidism, unspecified Status: Acute Assessment and Plan: continue home regimen and (5) Type 2 diabetes mellitus: Code(s): E11.9 - Type 2 diabetes mellitus without complications Status: Acute Assessment and Plan: will continue home regimen and monitor (6) Multiple sclerosis: Code(s): G35 - Multiple sclerosis Status: Acute Assessment and Plan: remains clinically Additional Plan Patient presents today with increasing weakness and shortness of breath, found to have worsening pneumonia on imaging. Although she did receive the Rajan Rajan COVID vaccine in November I think it would be appropriate to swab her for COVID thus she will remain in isolation pending those results. She has been started on azithromycin and ceftriaxone. Encourage incentive spirometry. Mucinex And Cornet to help mobilize secretions. She is currently requiring 5 L of oxygen, presumably due to the pneumonia, Though given her limited mobility in edema pulmonary embolism is a consideration. Will check venous Doppler ultrasounds as well as D-dimer and consider CTA of the chest. Her blood pressures were reviewed and they are stable. Hold metformin while hospitalized as she may need contrast. Initiate sliding scale insulin, Accu-Cheks, and hypoglycemic protocol. Continue levothyroxine and check TSH. The rest of her home medications will be reviewed and resumed as appropriate. Subjective Date/time seen: 03/30/21 16:33 03/29patient is 65-year-old female with history of MS patient initially seen in emergency depart on Tuesday was diagnosed with pneumonia at that time patient was discharged on oral antibiotics however patient's symptoms were not improving she was more short of breath presented emergency depart and the CT scan showed worsening pneumonia, though patient has received COVID vaccine is also positive COVID-19, patient is treated with Cefepime azithromycin for pneumonia and COVID-19 patient is started on dexamethasone 6mg, 10/29 and remdesivir 2 and also received convalescent plasma, patient has had fever and remains on 5 L nasal cannula, patient denies any cough shortness of breath, will continue to monitor further rec
[2021-03-30 16:34] LABS: Glucose Point of Care 190 mg/dl (65-105)
[2021-03-30] MEDS: REMDESIVIR 100 MG/NS 250 ML 100 MG/250 ML BAG 250 MG IVPB (20:47)
[2021-03-30 21:11] LABS: Glucose Point of Care 207 mg/dl (65-105)
[2021-03-31] VITALS (21 sets, daily range): BP systolic 112–162; BP diastolic 57–79; PULSE 61–101; RESP 16–43; TEMP 36.4–37.6; O2SAT 88–99
--- NOTE | 2021-03-31 04:46 | PCRCNOTE ---
Pt is on Air HFNC, 60 lom, 90%. Pt also has 100% NRB over the HFNC.
[2021-03-31 05:15] LABS: Alanine Aminotransferase 20 U/L (4-35); Estimated CRCL calculation 100 ml/min; Estimated Glomerular Filt Rate > 60
[2021-03-31 05:30] LABS: Prothrombin Time 12.8 Seconds (11.1-14.7)
[2021-03-31] MEDS: LEVOTHYROXINE SODIUM 150 MCG TABLET PO (06:06)
[2021-03-31 08:55] LABS: Glucose Point of Care 148 mg/dl (65-105)
[2021-03-31] MEDS: ATORVASTATIN 20 MG TABLET PO (09:23)
[2021-03-31] MEDS: ISOSORBIDE MONONITRATE 30 MG TAB.ER.24H PO (09:23)
[2021-03-31] MEDS: DEXAMETHASONE SOD PHOS INJ 4 MG/ML VIAL 6 MG IV PUSH (09:23)
[2021-03-31] MEDS: guaiFENesin 12 HR 600 MG TABCR PO ×2 (09:23→21:22)
[2021-03-31] MEDS: ALPRAZolam (*CRX) 0.25 MG TABLET PO (11:59)
[2021-03-31 12:32] LABS: Glucose Point of Care 164 mg/dl (65-105)
--- NOTE | 2021-03-31 12:33 | PM.IMPN ---
Progress Note: A&P Assessment and Plan (1) Acute respiratory failure with hypoxia: Code(s): J96.01 - Acute respiratory failure with hypoxia Status: Acute Assessment and Plan: 03/30/21 16:33 03/29patient is 65-year-old female with history of MS patient initially seen in emergency depart on Tuesday was diagnosed with pneumonia at that time patient was discharged on oral antibiotics however patient's symptoms were not improving she was more short of breath presented emergency depart and the CT scan showed worsening pneumonia, though patient has received COVID vaccine is also positive COVID-19, patient is treated with Cefepime azithromycin for pneumonia and COVID-19 patient is started on dexamethasone 6mg, /10 and remdesivir 2/5 and also received convalescent plasma, patient has had fever and remains on 5 L nasal cannula, patient denies any cough shortness of breath, will continue to monitor further recommendation to follow. 711 patient with a COVID 19 as well as community-acquired pneumonia for which patient is being treated with Cefepime and azithromycin, COVID-19 patient started on dexamethasone 6mg /10, remdesivir 3/5 as well as received convalescent plasma however patient's symptoms are not improving and requiring high-flow oxygen, will consult pulmonology and further recommendation to follow. 03/31 COVID pneumonia acquired pneumonia treated ceftriaxone and azithromycin. dexamethasone and REMdesivir. Received convalescent plasma. Will get CTA PE protocol. D-dimer elevated pulmonary has been consulted will await the recommendation venous duplex negative for DVT mild leukopenia noted along with thrombocytopenia likely from viral infection ABG reviewed from 03/28/2021 renal function normal today borderline diabetes at 6.4 hemoglobin A1c monitor LFTs CRP elevated 21.8 (2) Pneumonia: Code(s): J18.9 - Pneumonia, unspecified organism Status: Acute Assessment and Plan: patient has worsening community-acquired pneumonia plan is above (3) Hypertension: Code(s): I10 - Essential (primary) hypertension Status: Acute Assessment and Plan: continue home regimen and monitor (4) Hypothyroidism: Code(s): E03.9 - Hypothyroidism, unspecified Status: Acute Assessment and Plan: continue home regimen and (5) Type 2 diabetes mellitus: Code(s): E11.9 - Type 2 diabetes mellitus without complications Status: Acute Assessment and Plan: will continue home regimen and monitor (6) Multiple sclerosis: Code(s): G35 - Multiple sclerosis Status: Acute Assessment and Plan: remains clinically Subjective Date/time seen: 03/31/21 12:33 Interval history: Continues to feel short of breath. Oxygen level about the same as compared to yesterday. Cough present. No leg swelling Review of Systems Review of Systems: All systems reviewed & are unremarkable except as noted in HPI and below Exam Narrative: Exam Narrative: moderately obese Not in acute distress Patient is comfortable, NAD HEENT: eyes are clear and none icteric LUNGS: normal respiratory effort decreased breath sounds bilaterally ABD: distended soft nontender Lower extremities: no edema no clubbing or cyanosis SKIN: nonjaundiced Neuro: grossly intact and normal speech. Objective Data Vital Signs Vital Signs: Vital Signs - 24 hr 03/30/21 14:00 03/30/21 15:52 03/30/21 16:00 Temperature 98.7 F Pulse Rate 93 81 92 Respiratory Rate 18 Blood Pressure 142/66 H Pulse Oximetry 91 88 L 03/30/21 18:00 03/30/21 20:00 03/30/21 21:59 Temperature 97.4 F L Pulse Rate 91 87 87 Respiratory Rate 22 H Blood Pressure 137/49 L Pulse Oximetry 93 03/30/21 23:28 03/31/21 00:00 03/31/21 01:05 Temperature 97.9 F Pulse Rate 96 101 H Respiratory Rate 20 Blood Pressure 130/63 Pulse Oximetry 92 93 93 03/31/21 01:38 03/31/21 02:00 03/31/21
[2021-03-31 13:43] LABS: Legionella pneumophila Ag Ur Not Detected (Not Detected)
[2021-03-31 17:10] LABS: Glucose Point of Care 182 mg/dl (65-105)
[2021-03-31 20:28] LABS: Glucose Point of Care 239 mg/dl (65-105)
[2021-03-31] MEDS: REMDESIVIR 100 MG/NS 250 ML 100 MG/250 ML BAG 250 MG IVPB (21:23)
[2021-04-01] VITALS (23 sets, daily range): BP systolic 127–150; BP diastolic 60–98; PULSE 51–102; RESP 20–35; TEMP 36–37.2; O2SAT 88–98
[2021-04-01 02:09] LABS: Pneumococcal Antigen Urine Not Detected (Not Detected)
[2021-04-01] MEDS: LORazepam INJ (*CRX) 2 MG/ML VIAL 0.5 MG IV PUSH (03:32)
[2021-04-01 05:36] LABS: Hematocrit 36.3 % (37.0-47.0); Hemoglobin 12.2 g/dL (12.0-15.0); Immature Granulocyte Absolute 0.04 K/mm3 (0.00-0.031); Immature Granulocyte Percent A 1.1 % (0-0.5); Lymphocytes Absolute Auto 0.49 K/mm3 (0.9-3.2); Lymphocytes Percent Auto 13.7 % (18.3-44.2); Mean Corpuscular HGB Conc 33.6 g/dl (32-36); Mean Corpuscular Volume 89.4 fl (80-100); Mean Platelet Volume 10.5 fl (7.4-10.4); Monocytes Absolute Auto 0.4 K/mm3 (0.1-0.6); Monocytes Percent Auto 10.9 % (2.6-8.5); Neutrophils Absolute Auto 2.7 K/mm3 (1.3-6.7); Neutrophils Percent Auto 74.3 % (45.5-73.1); Platelet Count Result 270 k/mm3 (150-375); Red Blood Count 4.06 M/mm3 (4.2-5.4); Red Cell Distribution Width 12.5 % (11.5-14.5); White Blood Count 3.6 K/mm3 (4.5-10.0)
[2021-04-01 05:44] LABS: Alanine Aminotransferase 20 U/L (4-35); Albumin Level 3.5 g/dL (3.5-5.1); Alkaline Phosphatase 91 U/L (38-126); Anion Gap 8 mmol/L (8-16); Aspartate Amino Transferase 43 U/L (14-36); Bilirubin,Total 0.8 mg/dL (0.2-1.3); Blood Urea Nitrogen 13 mg/dL (7-17); Calcium 8.6 mg/dL (8.4-10.2); Carbon Dioxide 25 mmol/L (22-30); Chloride 106 mmol/L (98-107); Estimated CRCL calculation 100 ml/min; Estimated Glomerular Filt Rate > 60; Glucose 159 mg/dL (65-105); Potassium 3.7 mmol/L (3.4-5.0); Sodium 139 mmol/L (137-145)
[2021-04-01 06:19] LABS: Prothrombin Time 13.1 Seconds (11.1-14.7)
[2021-04-01 08:25] LABS: Glucose Point of Care 145 mg/dl (65-105)
[2021-04-01] MEDS: ATORVASTATIN 20 MG TABLET PO (09:17)
[2021-04-01] MEDS: DEXAMETHASONE SOD PHOS INJ 4 MG/ML VIAL 6 MG IV PUSH (09:17)
[2021-04-01] MEDS: ISOSORBIDE MONONITRATE 30 MG TAB.ER.24H PO (09:17)
[2021-04-01] MEDS: LEVOTHYROXINE SODIUM 150 MCG TABLET PO (09:17)
[2021-04-01] MEDS: guaiFENesin 12 HR 600 MG TABCR PO (09:17)
--- NOTE | 2021-04-01 11:20 | PC.NURSE ---
Dr. Hammond in room with patient, called out asking for nurse to come into room. Entered room to find him adjusting bipap settings. Patient tachypneic, anxious, and oxygen saturation 95%. Stated he wanted to switch patient to airvo. Respiratory called to come in and assist. Dr. Hammond stated he would enter new orders and speak with flower grower.
[2021-04-01 12:09] LABS: Glucose Point of Care 149 mg/dl (65-105)
[2021-04-01 12:20] LABS: Alveolar/Arterial O2 Gradient 630.5 mmHg; Base Excess ABG 0.7 mEq/l (+/-2.0); Fractional Inspired Oxygen 100 %; Oxygen Content ABG 17.4 %vol (16.0-22.0); Oxyhemoglobin 88.2 % THb (90.0-100.0); PCO2 ABG 30.5 mmHg (35.0-45.0); PO2 FiO2 Ratio Arterial Blood 0.52 %; Total Hemoglobin 14.1 g/dL (12.0-18.0); pH ABG 7.496 (7.350-7.450)
--- NOTE | 2021-04-01 12:20 | WPDCNINT ---
Assessment and Plan Assessment and plan (1) Acute respiratory failure with hypoxia: Code(s): J96.01 - Acute respiratory failure with hypoxia Status: Acute Assessment and Plan: Acute Respiratory failure secondary to COVID-19 pneumonia Patient is currently saturating 95-96% on BiPAP 08/24 100% patient seems to be very anxious and her respiratory rate fluctuates from 20s to 40s I will start Precedex infusion with anxiety and see if that helps She may need intubation if continues to worsen ABG and PCXR reviewed Bronchodilators (2) Pneumonia due to COVID-19 virus: Code(s): U07.1 - COVID-19; J12.82 - Pneumonia due to coronavirus disease 2018 Status: Acute Assessment and Plan: Although patient did get Rajan Rajan vaccine for COVID-19 she was tested positive for COVID-19 PCR. Her clinical picture and radiology findings are all suggestive of COVID 19 pneumonia continue dexamethasone and remdesivir (started 03/28) patient receive 1 dose of convalscent plasma In light of rapid deterioration and high CRP, will administer Tocilizumab will complete 5 day course of Rocephin and azithromycin monitor inflammatory markers (3) Multiple sclerosis: Code(s): G35 - Multiple sclerosis Status: Acute Assessment and Plan: currently not on any treatment (4) Hypothyroidism: Code(s): E03.9 - Hypothyroidism, unspecified Status: Acute Assessment and Plan: continue levothyroxine (5) Hyperglycemia: Code(s): R73.9 - Hyperglycemia, unspecified Status: Acute Assessment and Plan: sliding scale insulin Additional Plan DVT prophylaxis - start Lovenox Stress ulcer prophylaxis - PPI Nutrition - NPO at this time Code Status - patient request to be Full Code . She wants her to make decisions if she is unable to make decisions for herself Total Critical Care Time - 35 minutes Due to a high probability of clinically significant, life threatening deterioration, the patient required my highest level of preparedness to intervene emergently and I personally spent this critical care time directly and personally managing the patient. This critical care time included obtaining a history; examining the patient; pulse oximetry; ordering and review of studies; arranging urgent treatment with development of a management plan; evaluation of patient's response to treatment; frequent reassessment; and discussions with other providers. It was exclusive of separately billable procedures and treating other patients and teaching time. Please see Assessment and Plan section and the rest of the note for further information on patient assessment and treatment [employer] Consult Note Consult date: 04/01/21 Time Seen: 13:00 HPI: Danielle Quesada is a 65 year old female with multiple sclerosis who presented to the emergency department on 03/28 from home for evaluation of increased weakness. She was seen in this ER on 03/25 with weakness x2 days, nasal discharge, and scratchy throat. She was diagnosed with pneumonia and discharged on cefdinir and azithromycin. Despite taking her antibiotic she has continued to feel worse and had developed productive cough and mild shortness breath. she denied anosmia and dysgeusia. Some loose stools. She had received the Rajan and Rajan COVID vaccine in November 2020. No known exposure to those positive for COVID nor does she have any sick contacts. O n presentation chest x-ray showed Worsened airspace opacities in the mid and lower lung zones, consistent with atelectasis versus pneumonia. Was started on azithromycin and ceftriaxone. COVID PCR came back positive and her antibodies were also reactive. Legionella and pneumococcal antigen were negative. Blood cultures have remained negative. Lower extremity Dopplers were negative for DVT. CTA chest was negative for PE and showed diffuse lung disease consistent with COVID-19 pneumonia. shan
[2021-04-01 12:21] LABS: Device HIGH FLOW THERAPY; Modified Allen's Test Pass; Site Drawn LEFT RADIAL
--- NOTE | 2021-04-01 13:15 | PC.NURSE ---
This patient, Danielle Quesada, was transferred to ICU 4 on 04/01/21 at 1255. Personal belongings sent with patient. Report given to BLADIMIR Rosales. Appropriate documentation sent with patient.
[2021-04-01] MEDS: dexmedeTOMIDine 400 MCG/100 ML 400 MCG/100 ML BAG 5.42 MCG IV CONT (13:54)
[2021-04-01] MEDS: LIDOCAINE HCL 1% PF INJ 5 ML VIAL INFILTRATE (14:15)
--- NOTE | 2021-04-01 14:37 | PM.IMPN ---
Progress Note: A&P Assessment and Plan (1) Acute respiratory failure with hypoxia: Code(s): J96.01 - Acute respiratory failure with hypoxia Status: Acute Assessment and Plan: 03/30/21 16:33 03/29patient is 65-year-old female with history of MS patient initially seen in emergency depart on Tuesday was diagnosed with pneumonia at that time patient was discharged on oral antibiotics however patient's symptoms were not improving she was more short of breath presented emergency depart and the CT scan showed worsening pneumonia, though patient has received COVID vaccine is also positive COVID-19, patient is treated with Cefepime azithromycin for pneumonia and COVID-19 patient is started on dexamethasone 6mg, /10 and remdesivir 2/5 and also received convalescent plasma, patient has had fever and remains on 5 L nasal cannula, patient denies any cough shortness of breath, will continue to monitor further recommendation to follow. 711 patient with a COVID 19 as well as community-acquired pneumonia for which patient is being treated with Cefepime and azithromycin, COVID-19 patient started on dexamethasone 6mg /10, remdesivir 3/5 as well as received convalescent plasma however patient's symptoms are not improving and requiring high-flow oxygen, will consult pulmonology and further recommendation to follow. 03/31 COVID pneumonia acquired pneumonia treated ceftriaxone and azithromycin. dexamethasone and REMdesivir. Received convalescent plasma. Will get CTA PE protocol. D-dimer elevated pulmonary has been consulted will await the recommendation venous duplex negative for DVT mild leukopenia noted along with thrombocytopenia likely from viral infection ABG reviewed from 03/28/2021 renal function normal today borderline diabetes at 6.4 hemoglobin A1c monitor LFTs CRP elevated 21.8 04/01 worsened respiratory status today. Discussed with garbage collector supervisor this morning. It was over to the ICU. ABG obtained and reviewed (2) Pneumonia: Code(s): J18.9 - Pneumonia, unspecified organism Status: Acute Assessment and Plan: patient has worsening community-acquired pneumonia plan is above (3) Hypertension: Code(s): I10 - Essential (primary) hypertension Status: Acute Assessment and Plan: continue home regimen and monitor (4) Hypothyroidism: Code(s): E03.9 - Hypothyroidism, unspecified Status: Acute Assessment and Plan: continue home regimen and (5) Type 2 diabetes mellitus: Code(s): E11.9 - Type 2 diabetes mellitus without complications Status: Acute Assessment and Plan: will continue home regimen and monitor (6) Multiple sclerosis: Code(s): G35 - Multiple sclerosis Status: Acute Assessment and Plan: remains clinically stable Subjective Date/time seen: 04/01/21 14:37 Interval history: patient has remained on BiPAP throughout the night. She feels more short of breath and remain on 100% oxygen. She has minimal cough. Respiratory rate has been in 30s to 40s this morning. Review of Systems Review of Systems: All systems reviewed & are unremarkable except as noted in HPI and below Exam Narrative: Exam Narrative: moderately obese Mild respiratory distress Patient is comfortable, NAD HEENT: eyes are clear and none icteric LUNGS: tachypneic in 30s to 40s, decreased breath sounds bilaterally currently on BiPAP ABD: distended soft nontender Lower extremities: no edema no clubbing or cyanosis SKIN: nonjaundiced Neuro: grossly intact and normal speech. Objective Data Vital Signs Vital Signs: Vital Signs - 24 hr 03/31/21 16:00 03/31/21 18:00 03/31/21 20:00 Temperature 98.2 F 99.3 F Pulse Rate 84 87 95 Respiratory Rate 38 H 20 Blood Pressure 162/79 H 139/65 Pulse Oximetry 93 93 03/31/21 21:37 03/31/21 22:00 03/31/21 23:35 Temperature Pulse Rate 81 80 84 Respiratory Rate 38 H Blood Pressure
--- NOTE | 2021-04-01 16:02 | PC.NURSE ---
Updated spouse on patient condition.
[2021-04-01] MEDS: PANTOPRAZOLE SODIUM IV 40 MG VIAL IV PUSH (16:20)
[2021-04-01] MEDS: TOCILIZUMAB 800 MG in SODIUM CHLORIDE 0.9% IV 60 ML 100 MG IVPB (16:20)
[2021-04-01] MEDS: ENOXAPARIN 40 MG/0.4 ML SYRINGE SUB-Q (16:20)
[2021-04-01] MEDS: INSULIN ASPART (*BKC) 100 UNITS/ML SUB-Q (16:50)
[2021-04-01 17:06] LABS: Glucose Point of Care 215 mg/dl (65-105)
--- NOTE | 2021-04-01 19:37 | PM.CNPUL ---
Assessment and Plan Assessment and plan (1) Acute respiratory failure with hypoxia: Code(s): J96.01 - Acute respiratory failure with hypoxia Status: Acute Assessment and Plan: Progressive acute respiratory failure with need for high O2, ICU care, NPO, and Rx for COVID pneumonia. Prognosis is guarded. She has received standard medications; remdesivir, dexamethasone, convalescent plasma, and is responding general care to control glucose, DVT prophylaxis; She does not have preexisting lung disease. She is not able to take much by mouth due to tenuous respiratory status and possible need for intubation. She has not had hypotension, and renal function has remained stable. Supportive care, expectant management wit hconcern for possible intubation if she does not improve. She is not able to breathe easily in the prone position when wearing BiPAP. (2) Pneumonia due to COVID-19 virus: Code(s): U07.1 - COVID-19; J12.82 - Pneumonia due to coronavirus disease 2019 Status: Acute Assessment and Plan: see above History of Present Illness History of Present Illness Consult date: 04/03/21 Requesting physician: Farshad Mejias MD Chief complaint: Sepsis/Pneumonia/Respiratory failure Narrative: DATE of consult: April 01, 2021 NEW: Danielle Quesada is a 65 year old female admitted 03/28 after failing outpatient treatment for pneumonia noted on March 24 CXR with infiltrate in left base. Symptoms at that time included had increased weakness, a few days of weakness, nasal discharge, scratchy throat, Rx with cefdinir and azithromycin She has been vaccinated against COVID in November with the Rajan and Rajan vaccine. She has multiple sclerosis for many years with residual left-sided weakness. She felt worse with a productive cough and mild shortness breath with decreased appetite with nausea. She has had progression of infiltrates, was moved to ICU 04/01 and placed on Precedex at 0.2 mg/kg/hour, low dose with bradycardia, rate 48-50, so the Precedex was stopped. She required Airvo at 95% and 60L/min with non-rebreather in addition to this. She has been alternating BiPAP in addition to the AirVo and NRM. She has a cough with no sputum expectorated. Her SARS-CoV-2 PCR from March 28 is (+) in addition to SARS-CoV-2 IgG antibody and [id number]. She received dexamethasone mg 6 mg IV day starting on March 28 and remdesivir as well as convalescent plasma April 01. ABG 7.45/35/68 on 3.5 L at admission; no CO2 retention Review of Systems Review of Systems: All systems reviewed & are unremarkable except as noted in HPI and below (HPI) PMFSH Past Medical History Medical History Coronary artery disease Inferior STEMI on 11/25/2017 Dyslipidemia Hypertension Hypothyroidism Multiple sclerosis Stopped responding to treatment. Dependent for most ADLs due to left hemiparesis. 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 Osteomyelitis Left femur following fracture. 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 Recurrent UTI Subarachnoid hemorrhage (2012) Angiogram negative. Type 2 diabetes mellitus Hemoglobin A1c was 6.1% in November 2020. Surgical History Surgical History History of bilateral cataract extraction History of cardiac catheterization (11/25/17) Balloon angioplasty with stent placement to the RCA and proximal LAD. History of creation of ventriculoperitoneal shunt History of dilation and curettage History of orthopedic surgery Knee arthroscopy. ORIF left femur fracture. History of thyroidectomy (1988) History of tonsillectomy History of tubal ligation Family History Family History Father Suzi
[2021-04-01 20:31] LABS: Glucose Point of Care 207 mg/dl (65-105)
[2021-04-01] MEDS: REMDESIVIR 100 MG/NS 250 ML 100 MG/250 ML BAG 250 MG IVPB (21:35)
[2021-04-01] MEDS: CENTRAL LINE FLUSH 10 ML IV PUSH (21:36)
[2021-04-02] VITALS (20 sets, daily range): BP systolic 128–141; BP diastolic 53–80; PULSE 48–73; RESP 22–42; TEMP 35.9–36.9; O2SAT 90–100
[2021-04-02 05:12] LABS: Hematocrit 39.2 % (37.0-47.0); Hemoglobin 12.6 g/dL (12.0-15.0); Mean Corpuscular HGB Conc 32.1 g/dl (32-36); Mean Corpuscular Hemoglobin 29.5 pg (26-34); Mean Corpuscular Volume 91.8 fl (80-100); Mean Platelet Volume 10.2 fl (7.4-10.4); Platelet Count Result 265 k/mm3 (150-375); Red Blood Count 4.27 M/mm3 (4.2-5.4); Red Cell Distribution Width 12.7 % (11.5-14.5)
[2021-04-02 05:30] LABS: D Dimer 3.52 ug/mL (<0.48)
[2021-04-02 05:32] LABS: Alanine Aminotransferase 21 U/L (4-35); Albumin Level 3.5 g/dL (3.5-5.1); Alkaline Phosphatase 98 U/L (38-126); Anion Gap 8 mmol/L (8-16); Aspartate Amino Transferase 38 U/L (14-36); Bilirubin,Total 0.7 mg/dL (0.2-1.3); Blood Urea Nitrogen 14 mg/dL (7-17); CRP 5.7 mg/dL (<1.0); Calcium 8.8 mg/dL (8.4-10.2); Carbon Dioxide 25 mmol/L (22-30); Chloride 106 mmol/L (98-107); Estimated CRCL calculation 100 ml/min; Estimated Glomerular Filt Rate > 60; Glucose 153 mg/dL (65-105); Lactate Dehydrogenase 863 U/L (313-618); Magnesium 1.9 mg/dL (1.6-2.3); Potassium 3.9 mmol/L (3.4-5.0); Sodium 139 mmol/L (137-145)
[2021-04-02] MEDS: CENTRAL LINE FLUSH 10 ML IV PUSH ×3 (06:55→22:52)
--- NOTE | 2021-04-02 08:39 | WPDINTPN ---
Progress Note: A&P Assessment and Plan (1) Acute respiratory failure with hypoxia: Code(s): J96.01 - Acute respiratory failure with hypoxia Status: Acute Assessment and Plan: Acute Respiratory failure secondary to COVID-19 pneumonia Patient is currently saturating 95-96% on BiPAP 08/24 80% Patient seems to be very anxious and her respiratory rate fluctuates from 20s to 40s. Patient was started on Precedex infusion but does has been limited due to her heart rate FiO2 is down to 80% today I will try to switch her to Airvo during the day and see if she tolerates She may still need intubation if worsen PCXR reviewed in shows stable diffuse bilateral infiltrates Bronchodilators chest CTA was negative for PE and lower extremity Dopplers were negative for DVT (2) Pneumonia due to COVID-19 virus: Code(s): U07.1 - COVID-19; J12.82 - Pneumonia due to coronavirus disease 2018 Status: Acute Assessment and Plan: Although patient did get Rajan Rajan vaccine for COVID-19 she was tested positive for COVID-19 PCR. Her clinical picture and radiology findings are all suggestive of COVID 19 pneumonia Continue dexamethasone (started 03/28). She has completed 5 day course of Remdesivir Patient received 1 dose of convalscent plasma In light of rapid deterioration and high CRP, patient was administered Tocilizumab 04/01. QuantiFERON gold test was ordered and is pending she will complete 5 day course of Rocephin and azithromycin today continue to monitor inflammatory markers (3) Multiple sclerosis: Code(s): G35 - Multiple sclerosis Status: Acute Assessment and Plan: currently not on any treatment (4) Hypothyroidism: Code(s): E03.9 - Hypothyroidism, unspecified Status: Acute Assessment and Plan: continue levothyroxine (5) Hyperglycemia: Code(s): R73.9 - Hyperglycemia, unspecified Status: Acute Assessment and Plan: sliding scale insulin Additional Plan DVT prophylaxis - start Lovenox Stress ulcer prophylaxis - PPI Nutrition - NPO at this time Code Status - patient request to be Full Code . She wants her to make decisions if she is unable to make decisions for herself Total Critical Care Time - 30 minutes Due to a high probability of clinically significant, life threatening deterioration, the patient required my highest level of preparedness to intervene emergently and I personally spent this critical care time directly and personally managing the patient. This critical care time included obtaining a history; examining the patient; pulse oximetry; ordering and review of studies; arranging urgent treatment with development of a management plan; evaluation of patient's response to treatment; frequent reassessment; and discussions with other providers. It was exclusive of separately billable procedures and treating other patients and teaching time. Please see Assessment and Plan section and the rest of the note for further information on patient assessment and treatment Subjective Date/time seen: 04/02/21 Overnight events reviewed. Patient remained on BiPAP. Precedex was held due to bradycardia last night then later restarted low-dose. Afebrile PICC line was placed for better IV access yesterday Vitals acceptable patient states he feels no different than yesterday as far as breathing is. Continues to have some cough which is dry. denies any pain. her main complaint was that she wants to drink water. Review of Systems Review of Systems: ROS unobtainable: Yes unobtainable due to medical condition Exam Narrative: Exam Narrative: General: Pt is alert awake and in NAD Lungs/Chest: Trachea central Clear BS B/L, No crackles or wheezing. Patient is tachypneic but not in respiratory distress and no use of accessory muscles at this time. Patient is on BiPAP Cardiac: RRR. Normal S1 S2. No murmurs Circulation: Pedal pulse
[2021-04-02] MEDS: guaiFENesin 12 HR 600 MG TABCR PO ×2 (09:01→20:13)
[2021-04-02] MEDS: DEXAMETHASONE SOD PHOS INJ 4 MG/ML VIAL 6 MG IV PUSH (09:01)
[2021-04-02] MEDS: ATORVASTATIN 20 MG TABLET PO (09:01)
[2021-04-02] MEDS: PANTOPRAZOLE SODIUM IV 40 MG VIAL IV PUSH (09:02)
[2021-04-02 09:19] LABS: Glucose Point of Care 139 mg/dl (65-105)
[2021-04-02] MEDS: ACETAMINOPHEN 325 MG TABLET 650 MG PO ×2 (11:14→20:11)
[2021-04-02 16:24] LABS: Glucose Point of Care 167 mg/dl (65-105)
[2021-04-02] MEDS: dexmedeTOMIDine 400 MCG/100 ML 400 MCG/100 ML BAG IV CONT (17:30)
[2021-04-02 17:40] LABS: Glucose Point of Care 173 mg/dl (65-105)
[2021-04-02] MEDS: ENOXAPARIN 40 MG/0.4 ML SYRINGE SUB-Q (20:11)
[2021-04-02 23:02] LABS: Glucose Point of Care 185 mg/dl (65-105)
[2021-04-03] VITALS (18 sets, daily range): BP systolic 119–141; BP diastolic 52–85; PULSE 49–95; RESP 18–42; TEMP 36.4–37.1; O2SAT 64–97; BMI 38.0
[2021-04-03] MEDS: LEVOTHYROXINE SODIUM 150 MCG TABLET PO (06:20)
[2021-04-03] MEDS: CENTRAL LINE FLUSH 10 ML IV PUSH ×3 (06:20→20:32)
[2021-04-03 06:51] LABS: Hematocrit 39.5 % (37.0-47.0); Hemoglobin 13.1 g/dL (12.0-15.0); Mean Corpuscular HGB Conc 33.2 g/dl (32-36); Mean Corpuscular Hemoglobin 30.1 pg (26-34); Mean Corpuscular Volume 90.8 fl (80-100); Mean Platelet Volume 10.2 fl (7.4-10.4); Platelet Count Result 311 k/mm3 (150-375); Red Blood Count 4.35 M/mm3 (4.2-5.4); Red Cell Distribution Width 12.5 % (11.5-14.5); White Blood Count 5.3 K/mm3 (4.5-10.0)
[2021-04-03 07:06] LABS: Alanine Aminotransferase 19 U/L (4-35); Albumin Level 3.3 g/dL (3.5-5.1); Alkaline Phosphatase 95 U/L (38-126); Anion Gap 7 mmol/L (8-16); Aspartate Amino Transferase 40 U/L (14-36); Bilirubin,Total 0.9 mg/dL (0.2-1.3); Blood Urea Nitrogen 15 mg/dL (7-17); Calcium 8.4 mg/dL (8.4-10.2); Carbon Dioxide 27 mmol/L (22-30); Chloride 106 mmol/L (98-107); Estimated CRCL calculation 86 ml/min; Estimated Glomerular Filt Rate > 60; Glucose 120 mg/dL (65-105); Magnesium 1.9 mg/dL (1.6-2.3); Potassium 4.1 mmol/L (3.4-5.0); Sodium 140 mmol/L (137-145)
[2021-04-03] MEDS: ALPRAZolam (*CRX) 0.25 MG TABLET PO ×2 (08:20→20:31)
[2021-04-03] MEDS: ACETAMINOPHEN 325 MG TABLET 650 MG PO ×2 (08:20→20:31)
[2021-04-03] MEDS: PANTOPRAZOLE SODIUM IV 40 MG VIAL IV PUSH (08:21)
[2021-04-03] MEDS: ENOXAPARIN 40 MG/0.4 ML SYRINGE SUB-Q ×2 (08:21→20:31)
[2021-04-03] MEDS: DEXAMETHASONE SOD PHOS INJ 4 MG/ML VIAL 6 MG IV PUSH (08:22)
[2021-04-03] MEDS: ATORVASTATIN 20 MG TABLET PO (08:22)
[2021-04-03] MEDS: guaiFENesin 12 HR 600 MG TABCR PO ×2 (08:22→20:31)
--- NOTE | 2021-04-03 08:44 | WPDINTPN ---
Progress Note: A&P Assessment and Plan (1) Acute respiratory failure with hypoxia: Code(s): J96.01 - Acute respiratory failure with hypoxia Status: Acute Assessment and Plan: Acute Respiratory failure secondary to COVID-19 pneumonia Patient is currently saturating 95-96% on BiPAP 08/24 90% Patient seems to be very anxious and her respiratory rate fluctuates from 20s to 40s. Patient was started on Precedex infusion on arrival to ICU but dose has been limited due to her heart rate. when she has come on Precedex her heart rate decreases as expected. She tolerated airway yesterday during the day and will try again today at this point she is holding on with noninvasive positive pressure ventilation and Airvol combination and I am hoping to avoid intubation. There is still has significant possibility that she may need intubation if worsens or becomes BiPAP dependent PCXR reviewed in shows stable diffuse bilateral infiltrates Bronchodilators chest CTA was negative for PE and lower extremity Dopplers were negative for DVT (2) Pneumonia due to COVID-19 virus: Code(s): U07.1 - COVID-19; J12.82 - Pneumonia due to coronavirus disease 2019 Status: Acute Assessment and Plan: Although patient did get Rajan Rajan vaccine for COVID-19 she was tested positive for COVID-19 PCR. Her clinical picture and radiology findings are all suggestive of COVID 19 pneumonia Continue dexamethasone (started 03/28). She has completed 5 day course of Remdesivir Patient received 1 dose of convalscent plasma In light of rapid deterioration and high CRP, patient was administered Tocilizumab 04/01. QuantiFERON gold test was ordered and is pending she has completed 5 day course of Rocephin and azithromycin today continue to monitor inflammatory markers (3) Multiple sclerosis: Code(s): G35 - Multiple sclerosis Status: Acute Assessment and Plan: currently not on any treatment (4) Hypothyroidism: Code(s): E03.9 - Hypothyroidism, unspecified Status: Acute Assessment and Plan: continue levothyroxine (5) Hyperglycemia: Code(s): R73.9 - Hyperglycemia, unspecified Status: Acute Assessment and Plan: sliding scale insulin Additional Plan DVT prophylaxis - start Lovenox Stress ulcer prophylaxis - PPI Nutrition - NPO at this time. Start clear liquid diet if she stays on Airvo through lunch time Code Status - patient request to be Full Code . She wants her to make decisions if she is unable to make decisions for herself Total Critical Care Time - 30 minutes Due to a high probability of clinically significant, life threatening deterioration, the patient required my highest level of preparedness to intervene emergently and I personally spent this critical care time directly and personally managing the patient. This critical care time included obtaining a history; examining the patient; pulse oximetry; ordering and review of studies; arranging urgent treatment with development of a management plan; evaluation of patient's response to treatment; frequent reassessment; and discussions with other providers. It was exclusive of separately billable procedures and treating other patients and teaching time. Please see Assessment and Plan section and the rest of the note for further information on patient assessment and treatment Subjective Date/time seen: 04/03/21 Overnight events reviewed. Afebrile Patient was on air for all day yesterday and was placed back on BiPAP at night. Still on BiPAP at this time.. Her symptoms are unchanged for the most part and continues to have shortness of breath and cough which is mostly dry. denies any other new complaints she has been on and off low-dose Precedex depending on heart rate. Other Vitals acceptable Review of Systems Review of Systems: ROS unobtainable: Yes unobtainable due to medical condition
[2021-04-03 08:55] LABS: Glucose Point of Care 113 mg/dl (65-105)
--- NOTE | 2021-04-03 13:13 | PM.IMPN ---
Progress Note: A&P Assessment and Plan (1) Acute respiratory failure with hypoxia: Code(s): J96.01 - Acute respiratory failure with hypoxia Status: Acute Assessment and Plan: 03/30/21 16:33 03/29patient is 65-year-old female with history of MS patient initially seen in emergency depart on Tuesday was diagnosed with pneumonia at that time patient was discharged on oral antibiotics however patient's symptoms were not improving she was more short of breath presented emergency depart and the CT scan showed worsening pneumonia, though patient has received COVID vaccine is also positive COVID-19, patient is treated with Cefepime azithromycin for pneumonia and COVID-19 patient is started on dexamethasone 6mg, /10 and remdesivir 2/5 and also received convalescent plasma, patient has had fever and remains on 5 L nasal cannula, patient denies any cough shortness of breath, will continue to monitor further recommendation to follow. 711 patient with a COVID 19 as well as community-acquired pneumonia for which patient is being treated with Cefepime and azithromycin, COVID-19 patient started on dexamethasone 6mg /10, remdesivir 3/5 as well as received convalescent plasma however patient's symptoms are not improving and requiring high-flow oxygen, will consult pulmonology and further recommendation to follow. 03/31 COVID pneumonia acquired pneumonia treated ceftriaxone and azithromycin. dexamethasone and REMdesivir. Received convalescent plasma. Will get CTA PE protocol. D-dimer elevated pulmonary has been consulted will await the recommendation venous duplex negative for DVT mild leukopenia noted along with thrombocytopenia likely from viral infection ABG reviewed from 03/28/2021 renal function normal today borderline diabetes at 6.4 hemoglobin A1c monitor LFTs CRP elevated 21.8 04/01 worsened respiratory status today. Discussed with oceanographer physical this morning. It was over to the ICU. ABG obtained and reviewed 04/03 started on Precedex in the ICU. Less tachypneic. received a dose of tocilizumab 04/01. Continue current respiratory care (2) Pneumonia: Code(s): J18.9 - Pneumonia, unspecified organism Status: Acute Assessment and Plan: patient has worsening community-acquired pneumonia plan is above (3) Hypertension: Code(s): I10 - Essential (primary) hypertension Status: Acute Assessment and Plan: continue home regimen and monitor (4) Hypothyroidism: Code(s): E03.9 - Hypothyroidism, unspecified Status: Acute Assessment and Plan: continue home regimen and (5) Type 2 diabetes mellitus: Code(s): E11.9 - Type 2 diabetes mellitus without complications Status: Acute Assessment and Plan: will continue home regimen and monitor (6) Multiple sclerosis: Code(s): G35 - Multiple sclerosis Status: Acute Assessment and Plan: remains clinically stable Subjective Date/time seen: 04/03/21 13:13 Interval history: no overnight events. Patient uses BiPAP at night and air were during the daytime. Also on Precedex drip. Respiratory rate in 20s feels feels okay Review of Systems Review of Systems: All systems reviewed & are unremarkable except as noted in HPI and below Exam Narrative: Exam Narrative: moderately obese no acute respiratory distress Patient is comfortable, NAD HEENT: eyes are clear and none icteric LUNGS: decreased breath sounds bilaterally currently on Airvo ABD: distended soft nontender Lower extremities: no edema no clubbing or cyanosis SKIN: nonjaundiced Neuro: grossly intact and normal speech. Objective Data Vital Signs Vital Signs: Vital Signs - 24 hr 04/02/21 13:52 04/02/21 14:00 04/02/21 14:16 Temperature Pulse Rate 65 Respiratory Rate 30 H Blood Pressure 128/53 L Pulse Oximetry 100 94 96 04/02/21 16:00 04/02/21 17:30 04/02/21 18:00 Temperature 98.1 F Pulse
[2021-04-03 13:44] LABS: Glucose Point of Care 131 mg/dl (65-105)
[2021-04-03 18:05] LABS: Glucose Point of Care 150 mg/dl (65-105)
--- NOTE | 2021-04-03 19:23 | PM.PNPUL ---
Progress Note: A&P Assessment and Plan (1) Acute respiratory failure with hypoxia: Code(s): J96.01 - Acute respiratory failure with hypoxia Status: Acute Assessment and Plan: Progressive acute respiratory failure with need for high O2, ICU care, NPO, and Rx for COVID pneumonia. Prognosis is guarded. She has received standard medications; remdesivir, dexamethasone, convalescent plasma, and is responding general care to control glucose, DVT prophylaxis; She does not have preexisting lung disease. She is not able to take much by mouth due to tenuous respiratory status and possible need for intubation. She has not had hypotension, and renal function has remained stable. Supportive care, expectant management wit hconcern for possible intubation if she does not improve. She is not able to breathe easily in the prone position when wearing BiPAP. (2) Pneumonia due to COVID-19 virus: Code(s): U07.1 - COVID-19; J12.82 - Pneumonia due to coronavirus disease 2018 Status: Acute Assessment and Plan: see above Subjective Date/time seen: 04/03/21 19:23 Danielle Quesada is a 65 year old female. Seen in f/u for COVID pneumonia with acute hypoxemic resp failure. She wore BiPAP last night, and today has been on AirVo 90% with 60 L/min without non-rebreather mask. She is alert, not in distress. Saturation is 95% AirVo 90% and 60 L/min. She is taking clear liquids, jello and Ensure Apple juice. She does not have a productive cough. Review of Systems Review of Systems: All systems reviewed & are unremarkable except as noted in HPI and below Exam Narrative: Exam Narrative: GEN: Alert and responsive, oriented, wearing eye glasses, can answer questions HEENT: pupils equal, moist mucous membranes, normal dentition; no exudate NECK: no LAD CHEST: decreased air entry, decreased breath sounds CV: tachycardic regular S1S2 no m/g/r ABD : (+) bowel sounds Extremities : 2+ edema, no rash; right arm PICC PSYCH: A&O, follows commands NEURO: Weak Left arm, 2+/5 with weak squeeze; right strength is almost normal 4/5 Objective Data Vital Signs Vital Signs: Vital Signs - 24 hr 04/02/21 20:00 04/02/21 21:30 04/02/21 22:00 Temperature 36.6 C Pulse Rate 62 61 55 L Respiratory Rate 28 H 25 H Blood Pressure 137/74 139/76 Pulse Oximetry 92 92 96 04/02/21 22:45 04/03/21 00:00 04/03/21 01:14 Temperature 36.6 C Pulse Rate 55 L 51 L 51 L Respiratory Rate 27 H 26 H Blood Pressure 132/69 Pulse Oximetry 96 93 04/03/21 02:00 04/03/21 03:05 04/03/21 04:00 Temperature 36.4 C Pulse Rate 57 L 56 L 54 L Respiratory Rate 33 H 26 H 26 H Blood Pressure 141/85 H 127/56 L Pulse Oximetry 95 64 L 94 04/03/21 06:00 04/03/21 08:00 04/03/21 10:00 Temperature 36.9 C Pulse Rate 49 L 71 83 Respiratory Rate 25 H 34 H 18 Blood Pressure 125/53 L 120/52 L 124/63 Pulse Oximetry 94 94 96 04/03/21 11:09 04/03/21 12:00 04/03/21 14:00 Temperature 37.0 C Pulse Rate 80 75 84 Respiratory Rate 22 H 30 H Blood Pressure 124/62 122/54 L Pulse Oximetry 92 97 95 04/03/21 16:00 04/03/21 18:00 Temperature 37.1 C Pulse Rate 89 92 Respiratory Rate 28 H 24 H Blood Pressure 130/70 137/64 Pulse Oximetry 96 94 Intake/Output Intake/Output: Intake & Output 03/31/21 04/01/21 04/02/21 04/03/21 23:59 23:59 23:59 23:59 Intake Total 550 650 160 426 Output Total 1600 600 850 875 Balance -1050 50 -690 -449 Meds/Results Medications: Active Medications Generic Name Dose Route Start Last Admin Trade Name Freq PRN Reason Stop Dose Admin Acetaminophen 650 mg 04/02/21 10:03 04/03/21 08:20 Acetaminophen 325 Mg Tablet PO 650 mg Q4H PRN Administration Mild Pain (1-3) or Fever Alprazolam 0.25 mg 03/30/21 10:12 04/03/21 08:20 Alprazolam (*Crx) 0.25 Mg Tablet PO 0.2
[2021-04-03 20:56] LABS: Glucose Point of Care 178 mg/dl (65-105)
[2021-04-04] VITALS (20 sets, daily range): BP systolic 96–135; BP diastolic 57–85; PULSE 73–107; RESP 24–45; TEMP 36.6–37.2; O2SAT 87–98
[2021-04-04] MEDS: CENTRAL LINE FLUSH 10 ML IV PUSH ×3 (07:48→19:51)
[2021-04-04 07:51] LABS: Hematocrit 41.7 % (37.0-47.0); Hemoglobin 13.8 g/dL (12.0-15.0); Mean Corpuscular HGB Conc 33.1 g/dl (32-36); Mean Corpuscular Hemoglobin 29.8 pg (26-34); Mean Corpuscular Volume 90.1 fl (80-100); Platelet Count Result 345 k/mm3 (150-375); Red Blood Count 4.63 M/mm3 (4.2-5.4); Red Cell Distribution Width 12.7 % (11.5-14.5); White Blood Count 6.3 K/mm3 (4.5-10.0)
[2021-04-04 08:04] LABS: Alanine Aminotransferase 24 U/L (4-35); Albumin Level 3.5 g/dL (3.5-5.1); Alkaline Phosphatase 97 U/L (38-126); Anion Gap 7 mmol/L (8-16); Aspartate Amino Transferase 49 U/L (14-36); Bilirubin,Total 1.1 mg/dL (0.2-1.3); Blood Urea Nitrogen 13 mg/dL (7-17); CRP 1.9 mg/dL (<1.0); Calcium 8.7 mg/dL (8.4-10.2); Carbon Dioxide 26 mmol/L (22-30); Chloride 103 mmol/L (98-107); D Dimer 3.05 ug/mL (<0.48); Estimated CRCL calculation 86 ml/min; Estimated Glomerular Filt Rate > 60; Glucose 98 mg/dL (65-110); Lactate Dehydrogenase 947 U/L (313-618); Magnesium 1.8 mg/dL (1.6-2.3); Potassium 3.8 mmol/L (3.4-5.0); Sodium 136 mmol/L (137-145)
--- NOTE | 2021-04-04 09:32 | WPDINTPN ---
Progress Note: A&P Assessment and Plan (1) Acute respiratory failure with hypoxia: Code(s): J96.01 - Acute respiratory failure with hypoxia Status: Acute Assessment and Plan: Acute Respiratory failure secondary to COVID-19 pneumonia Patient is currently maintaining on air movement the day and BiPAP at night. Encourage prone positioning during the day Patient seems to be very anxious and her respiratory rate fluctuates from 20s to 40s. Patient was started on Precedex infusion on arrival to ICU but dose has been limited due to her heart rate. At this point she is holding on with noninvasive positive pressure ventilation and Airvo combination and I am hoping to avoid intubation. There is still has significant possibility that she may need intubation if worsens or becomes completely BiPAP dependent PCXR reviewed in shows stable diffuse bilateral infiltrates Bronchodilators Chest CTA was negative for PE and lower extremity Dopplers were negative for DVT (2) Pneumonia due to COVID-19 virus: Code(s): U07.1 - COVID-19; J12.82 - Pneumonia due to coronavirus disease 2019 Status: Acute Assessment and Plan: Although patient did get Rajan Rajan vaccine for COVID-19 she was tested positive for COVID-19 PCR. Her clinical picture and radiology findings are all suggestive of COVID 19 pneumonia Continue dexamethasone (started 03/28). She has completed 5 day course of Remdesivir Patient received 1 dose of convalscent plasma In light of rapid deterioration and high CRP, patient was administered Tocilizumab 04/01. QuantiFERON gold test was ordered and is pending she has completed 5 day course of Rocephin and azithromycin today continue to monitor inflammatory markers CRP is down to 1.9 (3) Multiple sclerosis: Code(s): G35 - Multiple sclerosis Status: Acute Assessment and Plan: currently not on any treatment (4) Hypothyroidism: Code(s): E03.9 - Hypothyroidism, unspecified Status: Acute Assessment and Plan: continue levothyroxine (5) Hyperglycemia: Code(s): R73.9 - Hyperglycemia, unspecified Status: Acute Assessment and Plan: sliding scale insulin Additional Plan DVT prophylaxis - start Lovenox Stress ulcer prophylaxis - PPI Nutrition - l continue diet if she stays on Airvo Code Status - patient request to be Full Code . She wants her to make decisions if she is unable to make decisions for herself Total Critical Care Time - 33 minutes Due to a high probability of clinically significant, life threatening deterioration, the patient required my highest level of preparedness to intervene emergently and I personally spent this critical care time directly and personally managing the patient. This critical care time included obtaining a history; examining the patient; pulse oximetry; ordering and review of studies; arranging urgent treatment with development of a management plan; evaluation of patient's response to treatment; frequent reassessment; and discussions with other providers. It was exclusive of separately billable procedures and treating other patients and teaching time. Please see Assessment and Plan section and the rest of the note for further information on patient assessment and treatment Subjective Date/time seen: 04/04/21 wore Airvo for most of the night. Placed on BiPAP around 4 this morning for tachypnea. Continues to be on BiPAP with adequate saturation Off Precedex no other significant change overnight. afebrile other vitals are stable Review of Systems Review of Systems: ROS unobtainable: Yes unobtainable due to medical condition Exam Narrative: Exam Narrative: General: Pt is alert awake and in NAD Lungs/Chest: Trachea central Clear BS B/L, No crackles or wheezing. Patient is tachypneic but not in respiratory distress and no use of accessory muscles at this time. Patient is on BiPAP Cardiac: R
[2021-04-04] MEDS: ENOXAPARIN 40 MG/0.4 ML SYRINGE SUB-Q ×2 (09:53→19:50)
[2021-04-04] MEDS: PANTOPRAZOLE SODIUM IV 40 MG VIAL IV PUSH (09:54)
[2021-04-04] MEDS: DEXAMETHASONE SOD PHOS INJ 4 MG/ML VIAL 6 MG IV PUSH (09:54)
[2021-04-04] MEDS: ATORVASTATIN 20 MG TABLET PO (09:54)
[2021-04-04] MEDS: guaiFENesin 12 HR 600 MG TABCR PO ×2 (09:54→19:51)
[2021-04-04 10:03] LABS: Glucose Point of Care 114 mg/dl (65-105)
[2021-04-04 12:23] LABS: Glucose Point of Care 127 mg/dl (65-105)
[2021-04-04] MEDS: ALPRAZolam (*CRX) 0.25 MG TABLET PO ×2 (12:55→19:51)
[2021-04-04] MEDS: ACETAMINOPHEN 325 MG TABLET 650 MG PO ×2 (12:55→19:52)
--- NOTE | 2021-04-04 14:27 | PM.IMPN ---
Progress Note: A&P Assessment and Plan (1) Acute respiratory failure with hypoxia: Code(s): J96.01 - Acute respiratory failure with hypoxia Status: Acute Assessment and Plan: 03/30/21 16:33 03/29patient is 65-year-old female with history of MS patient initially seen in emergency depart on Tuesday was diagnosed with pneumonia at that time patient was discharged on oral antibiotics however patient's symptoms were not improving she was more short of breath presented emergency depart and the CT scan showed worsening pneumonia, though patient has received COVID vaccine is also positive COVID-19, patient is treated with Cefepime azithromycin for pneumonia and COVID-19 patient is started on dexamethasone 6mg, /10 and remdesivir 2/5 and also received convalescent plasma, patient has had fever and remains on 5 L nasal cannula, patient denies any cough shortness of breath, will continue to monitor further recommendation to follow. 711 patient with a COVID 19 as well as community-acquired pneumonia for which patient is being treated with Cefepime and azithromycin, COVID-19 patient started on dexamethasone 6mg /10, remdesivir 3/5 as well as received convalescent plasma however patient's symptoms are not improving and requiring high-flow oxygen, will consult pulmonology and further recommendation to follow. 03/31 COVID pneumonia acquired pneumonia treated ceftriaxone and azithromycin. dexamethasone and REMdesivir. Received convalescent plasma. Will get CTA PE protocol. D-dimer elevated pulmonary has been consulted will await the recommendation venous duplex negative for DVT mild leukopenia noted along with thrombocytopenia likely from viral infection ABG reviewed from 03/28/2021 renal function normal today borderline diabetes at 6.4 hemoglobin A1c monitor LFTs CRP elevated 21.8 04/01 worsened respiratory status today. Discussed with hand stripper this morning. It was over to the ICU. ABG obtained and reviewed 04/03 started on Precedex in the ICU. Less tachypneic. received a dose of tocilizumab 04/01. Continue current respiratory care 04/04 changed respiratory status. Continue current ICU care (2) Pneumonia: Code(s): J18.9 - Pneumonia, unspecified organism Status: Acute Assessment and Plan: patient has worsening community-acquired pneumonia plan is above (3) Hypertension: Code(s): I10 - Essential (primary) hypertension Status: Acute Assessment and Plan: continue home regimen and monitor (4) Hypothyroidism: Code(s): E03.9 - Hypothyroidism, unspecified Status: Acute Assessment and Plan: continue home regimen and (5) Type 2 diabetes mellitus: Code(s): E11.9 - Type 2 diabetes mellitus without complications Status: Acute Assessment and Plan: will continue home regimen and monitor (6) Multiple sclerosis: Code(s): G35 - Multiple sclerosis Status: Acute Assessment and Plan: remains clinically stable Subjective Date/time seen: 04/04/21 14:28 Interval history: no overnight events. Patient uses BiPAP at night and airvo were during the daytime. Also on Precedex drip. did not tolerate prone positioning Review of Systems Review of Systems: All systems reviewed & are unremarkable except as noted in HPI and below Exam Narrative: Exam Narrative: moderately obese no acute respiratory distress Patient is comfortable, NAD HEENT: eyes are clear and none icteric LUNGS: decreased breath sounds bilaterally currently on Airvo ABD: distended soft nontender Lower extremities: no edema no clubbing or cyanosis SKIN: nonjaundiced Neuro: grossly intact and normal speech. Objective Data Vital Signs Vital Signs: Vital Signs - 24 hr 04/03/21 16:00 04/03/21 18:00 04/03/21 20:00 Temperature 98.7 F Pulse Rate 89 92 95 Respiratory Rate 28 H 24 H Blood Pressure 130/70 137/64 Pulse Oximetry 96 94 88
[2021-04-04 19:03] LABS: Glucose Point of Care 170 mg/dl (65-105)
[2021-04-04 20:34] LABS: Glucose Point of Care 174 mg/dl (65-105)
[2021-04-05] VITALS (34 sets, daily range): BP systolic 103–176; BP diastolic 54–85; PULSE 67–127; RESP 20–36; TEMP 35.8–36.9; O2SAT 86–100
[2021-04-05] MEDS: CENTRAL LINE FLUSH 10 ML IV PUSH ×3 (05:45→20:24)
[2021-04-05] MEDS: LEVOTHYROXINE SODIUM 150 MCG TABLET PO (05:45)
[2021-04-05] MEDS: ALPRAZolam (*CRX) 0.25 MG TABLET PO (05:54)
[2021-04-05 06:08] LABS: Hematocrit 43.6 % (37.0-47.0); Hemoglobin 14.5 g/dL (12.0-15.0); Mean Corpuscular HGB Conc 33.3 g/dl (32-36); Mean Corpuscular Hemoglobin 30.1 pg (26-34); Mean Corpuscular Volume 90.5 fl (80-100); Mean Platelet Volume 10.1 fl (7.4-10.4); Platelet Count Result 365 k/mm3 (150-375); Red Blood Count 4.82 M/mm3 (4.2-5.4); Red Cell Distribution Width 12.7 % (11.5-14.5)
[2021-04-05 06:15] LABS: Alanine Aminotransferase 24 U/L (4-35); Albumin Level 3.6 g/dL (3.5-5.1); Alkaline Phosphatase 100 U/L (38-126); Anion Gap 6 mmol/L (8-16); Aspartate Amino Transferase 46 U/L (14-36); Blood Urea Nitrogen 12 mg/dL (7-17); Calcium 8.6 mg/dL (8.4-10.2); Carbon Dioxide 25 mmol/L (22-30); Chloride 107 mmol/L (98-107); Estimated CRCL calculation 85 ml/min; Estimated Glomerular Filt Rate > 60; Glucose 99 mg/dL (65-110); Magnesium 1.8 mg/dL (1.6-2.3); Potassium 3.8 mmol/L (3.4-5.0); Sodium 138 mmol/L (137-145)
[2021-04-05] MEDS: ENOXAPARIN 40 MG/0.4 ML SYRINGE SUB-Q ×2 (09:11→20:24)
[2021-04-05] MEDS: DEXAMETHASONE SOD PHOS INJ 4 MG/ML VIAL 6 MG IV PUSH (09:11)
[2021-04-05] MEDS: PANTOPRAZOLE SODIUM IV 40 MG VIAL IV PUSH (09:11)
[2021-04-05] MEDS: guaiFENesin 12 HR 600 MG TABCR PO (09:11)
[2021-04-05] MEDS: ATORVASTATIN 20 MG TABLET PO (09:12)
[2021-04-05 09:29] LABS: Glucose Point of Care 112 mg/dl (65-105)
[2021-04-05] MEDS: RAPID SEQUENCE INTUBATION KIT 1 EACH (09:29)
[2021-04-05] MEDS: FENTANYL 2,500MCG/NS250ML(*CRX 2,500 MCG/250 ML BAG IV CONT (10:00)
--- NOTE | 2021-04-05 10:30 | PC.NURSE ---
At approximately 1030 on 04/05/2021, this patient's oxygen saturation began to decline. Options were provided to both the patient and her . The decision was made to intubate. Patient was intubated and OG inserted. Will continue to monitor.
--- NOTE | 2021-04-05 10:40 | WPDPROCEDUR ---
Procedures Intubation Intubation Date: 04/05/21 Intubation Time: 09:45 A pre-procedural Time-Out was completed immediately before starting the procedure and confirmed: Patient Identification, Site, Procedure, Patient Position and the Availability of Requisite Equipment: Yes Sedative: etomidate Mg given: 20 Paralytic: succinylcholine Mg given: 100 Laryngoscope: fiber optic video scope Assist device used: fiber optic device ET tube size: 8 Tube secured depth (cm): 24 Tube secured location: lips Tube placement confirmation: visualized tube passing through cords, equal breath sounds bilaterally and confirmation by capnometry Patient tolerated procedure: well Intubation complications: none
--- NOTE | 2021-04-05 10:41 | WPDINTPN ---
Progress Note: A&P Assessment and Plan (1) Acute respiratory failure with hypoxia: Code(s): J96.01 - Acute respiratory failure with hypoxia Status: Acute Assessment and Plan: Acute Respiratory failure secondary to COVID-19 pneumonia over last Mandis patient has remained on BiPAP at night and airvo during the day today she was unable to keep her saturations up despite Airvo and appeared wearing out. Patient was intubated 04/05 without any complication chest x-ray has been reviewed and will withdraw ET tube by 1 cm ABGs pending patient has been sedated with Versed and fentanyl infusions and she was given neuromuscular ade will be continued patient will be placed in prone position later today Bronchodilators Chest CTA was negative for PE and lower extremity Dopplers were negative for DVT (2) Pneumonia due to COVID-19 virus: Code(s): U07.1 - COVID-19; J12.82 - Pneumonia due to coronavirus disease 2018 Status: Acute Assessment and Plan: Although patient did get Rajan Rajan vaccine for COVID-19 she was tested positive for COVID-19 PCR. Her clinical picture and radiology findings are all suggestive of COVID 19 pneumonia Continue dexamethasone (started 03/28). She has completed 5 day course of Remdesivir Patient received 1 dose of convalscent plasma In light of rapid deterioration and high CRP, patient was administered Tocilizumab 04/01. QuantiFERON gold test was ordered and is pending she has completed 5 day course of Rocephin and azithromycin continue to monitor inflammatory markers CRP is down to 1.9 (3) Multiple sclerosis: Code(s): G35 - Multiple sclerosis Status: Acute Assessment and Plan: currently not on any treatment (4) Hypothyroidism: Code(s): E03.9 - Hypothyroidism, unspecified Status: Acute Assessment and Plan: continue levothyroxine (5) Hyperglycemia: Code(s): R73.9 - Hyperglycemia, unspecified Status: Acute Assessment and Plan: sliding scale insulin Additional Plan DVT prophylaxis - continue Lovenox Stress ulcer prophylaxis - PPI Nutrition - start tube feeding today Code Status - patient request to be Full Code . She wants her to make decisions if she is unable to make decisions for herself Total Critical Care Time - 45 minutes Due to a high probability of clinically significant, life threatening deterioration, the patient required my highest level of preparedness to intervene emergently and I personally spent this critical care time directly and personally managing the patient. This critical care time included obtaining a history; examining the patient; pulse oximetry; ordering and review of studies; arranging urgent treatment with development of a management plan; evaluation of patient's response to treatment; frequent reassessment; and discussions with other providers. It was exclusive of separately billable procedures and treating other patients and teaching time. Please see Assessment and Plan section and the rest of the note for further information on patient assessment and treatment Subjective Date/time seen: 04/05/21 10:41 Overnight events reviewed. Afebrile Patient was placed on BiPAP last night has been on BiPAP until this morning sats were 90% on 100% FiO2. overnight patient had some bouts of coughing which led to some desaturation.. Patient was given a dose of Xanax. This morning patient was placed on air and her sats went into 80s and were not recovered. I spoke to patient and she seemed tired and worn out. She was tachypneic and in respiratory distress. I discussed intubation and mechanical ventilation with her and she initially stated that she does not want to be intubated and when I explained her in detail about a respiratory failure and that she may not survive if not intubated, she told me she does not want to and agreed for intubation.. Her was notifi
[2021-04-05 11:03] LABS: Alveolar/Arterial O2 Gradient 565.8 mmHg; Arterial Blood Gas Ventilator rate 22 /MIN; Base Excess ABG -2.8 mEq/l (+/-2.0); Device VENTILATOR; Fractional Inspired Oxygen 100 %; Modified Allen's Test Pass; Oxygen Content ABG 22.9 %vol (16.0-22.0); Oxygen Saturation ABG 97.8 % (95.0-100.0); Oxyhemoglobin 96.4 % THb (90.0-100.0); PCO2 ABG 38.9 mmHg (35.0-45.0); PO2 ABG 108.3 mmHg (80.0-100.0); PO2 FiO2 Ratio Arterial Blood 1.08 %; Site Drawn RIGHT RADIAL; Total Hemoglobin 16.8 g/dL (12.0-18.0); pH ABG 7.371 (7.350-7.450)
[2021-04-05 11:04] LABS: Arterial Blood Gas PEEP 12 cmH2O; Arterial Blood Gas Tidal Volume 360 ml; Arterial Blood Gas Vent Mode CMV
[2021-04-05] MEDS: CISATRACURIUM BESYLATE 200 MG in DEXTROSE 5% 80 ML 9.36 ML IV CONT (11:14)
[2021-04-05] MEDS: CISATRACURIUM BESYLATE 20 MG/10 ML VIAL 15 MG IV PUSH (11:14)
[2021-04-05] MEDS: MIDAZOLAM 100MG/NS 100ML(*CRX) 100 MG/100 ML BAG IV CONT (11:19)
[2021-04-05 17:22] LABS: Glucose Point of Care 179 mg/dl (65-105)
[2021-04-05] MEDS: MINERAL OIL/WHITE PETROLATUM OINTMENT 1 APPLIC EACH EYE ×2 (18:07→20:24)
[2021-04-05 20:31] LABS: Glucose Point of Care 168 mg/dl (65-105)
[2021-04-05] MEDS: CISATRACURIUM BESYLATE 200 MG in DEXTROSE 5% 80 ML 7.8 ML IV CONT (23:12)
[2021-04-05 23:25] LABS: Glucose Point of Care 164 mg/dl (65-105)
--- NOTE | 2021-04-05 23:40 | PM.PNPUL ---
Progress Note: A&P Assessment and Plan (1) Acute respiratory failure with hypoxia: Code(s): J96.01 - Acute respiratory failure with hypoxia Status: Acute Assessment and Plan: COVID pneumonia with worsening acute Hypoxemic respiratory failure, despite vaccination in November; Treated initially with cefepime, doxycycline, changed to Ceftriaxone and azithromycin 04/05 - intubated for dropping saturation, now with improved oxygenation; dexamethasone 6 mg /day started March 28, Remdesivir completed, tocilizumab and convalescent serum April 01 Now that she is intubated, prone positioning planned. She is starting tube feeds, and continues DVT prophylaxis with enoxaparin. CXR shows stable bilatoeral infiltrates. (2) Pneumonia due to COVID-19 virus: Code(s): U07.1 - COVID-19; J12.82 - Pneumonia due to coronavirus disease 2018 Status: Acute Assessment and Plan: see above Subjective Date/time seen: 04/05/21 13:00 Patient with multiple sclerosis and left sided weakness with J&J COVID vaccine in November was intubated early today 04/05 due to progressive COVID pneumonia with progressive hypoxemic respiratory failure and falling saturations. She is sedated with versed, fentanyl and has neuromuscular blockade with Nimbex. She is on FiO2 100% with 12 cm PEEP which now maintains her saturation above 90%. She has a R PICC for access, and BP has remained adequate without pressors. 03/28 - dexamethasone 6 mg a day started x 10 days; Remdesivir 200 mg March 28, 100 mg March 29. 04/01 - convalescent plasma and tocilizumab given 04/05 - intubated Review of Systems Review of Systems: ROS unobtainable: Yes unobtainable due to medical condition (sedation) Exam Narrative: Exam Narrative: GEN: sedated and intubated HEENT: pupils equal, orally intubated, CHEST: decreased air entry, decreased breath sounds CV: regular S1S2 no m/g/r ABD : decreased bowel sounds Extremities : 2+ edema, no rash; right arm PICC NEURO: paralyzed with Nimbex Objective Data Vital Signs Vital Signs: Vital Signs - 24 hr 04/04/21 23:48 04/05/21 00:00 04/05/21 02:00 Temperature 36.4 C Pulse Rate 79 74 69 Respiratory Rate 31 H 30 H 25 H Blood Pressure 118/67 110/58 L Pulse Oximetry 93 92 91 04/05/21 03:01 04/05/21 04:00 04/05/21 05:29 Temperature 36.7 C Pulse Rate 71 67 90 Respiratory Rate 23 H 27 H 32 H Blood Pressure 117/60 Pulse Oximetry 95 92 95 04/05/21 06:00 04/05/21 08:00 04/05/21 10:00 Temperature 36.7 C 36.8 C Pulse Rate 72 68 127 H Respiratory Rate 31 H 26 H 27 H Blood Pressure 131/70 107/54 L 117/76 Pulse Oximetry 93 86 L 87 L 04/05/21 10:13 04/05/21 10:20 04/05/21 10:40 Temperature Pulse Rate 118 H 108 H 108 H Respiratory Rate 27 H 26 H Blood Pressure Pulse Oximetry 87 L 04/05/21 10:55 04/05/21 11:10 04/05/21 11:14 Temperature Pulse Rate 110 H 110 H 110 H Respiratory Rate 27 H 27 H 27 H Blood Pressure 117/76 Pulse Oximetry 04/05/21 11:19 04/05/21 11:20 04/05/21 12:00 Temperature 36.8 C Pulse Rate 110 H 106 H 97 Respiratory Rate 27 H 21 H 22 H Blood Pressure 103/84 Pulse Oximetry 90 04/05/21 13:00 04/05/21 13:14 04/05/21 13:57 Temperature Pulse Rate 99 91 85 Respiratory Rate 28 H Blood Pressure 103/84 Pulse Oximetry 97 04/05/21 14:00 04/05/21 16:00 04/05/21 16:45 Temperature 36.9 C 36.8 C Pulse Rate 84 84 91 Respiratory Rate 22 H 22 H Blood Pressure 122/85 109/67 Pulse Oximetry 97 97 95 04/05/21 17:41 04/05/21 17:43 04/05/21 17:44 Temperature Pulse Rate 77 77 78 Respiratory Rate 22 H 22 H Blood Pressure 118/75 Pulse Oximetry 04/05/21 18:00 04/05/21 18:04 04/05/21 18:08 Temperature 36.7 C Pulse Rate 90 92 89 Respiratory Rate 33 H 36 H 36 H Blood Pressure 176/72 H Pulse Oximetry 95
[2021-04-06] VITALS (35 sets, daily range): BP systolic 95–108; BP diastolic 63–78; PULSE 77–106; RESP 22; TEMP 36.5–37.6; O2SAT 92–100; BMI 32.8
[2021-04-06] MEDS: MIDAZOLAM 100MG/NS 100ML(*CRX) 100 MG/100 ML BAG 6 MG IV CONT ×2 (00:52→18:08)
[2021-04-06] MEDS: FENTANYL 2,500MCG/NS250ML(*CRX 2,500 MCG/250 ML BAG 17.5 MCG IV CONT ×2 (00:52→15:19)
[2021-04-06 05:01] LABS: Alveolar/Arterial O2 Gradient 309.4 mmHg; Base Excess ABG -0.4 mEq/l (+/-2.0); Carboxyhemoglobin 0.3 % THb (0-2.0); Fractional Inspired Oxygen 70 %; HCO3 ABG 23.4 mEq/l (22.0-26.0); Methemoglobin ABG 0.4 %THb (0-1.5); Oxygen Content ABG 23.4 %vol (16.0-22.0); Oxyhemoglobin 97.6 % THb (90.0-100.0); PO2 FiO2 Ratio Arterial Blood 2.16 %; Reduced Hemoglobin 1.7 %THb (0-5.0); Total Hemoglobin 16.9 g/dL (12.0-18.0)
[2021-04-06 05:02] LABS: Device VENTILATOR; Modified Allen's Test Pass; Site Drawn RIGHT RADIAL
[2021-04-06 05:03] LABS: Arterial Blood Gas PEEP 12 cmH2O; Arterial Blood Gas Tidal Volume 360 ml; Arterial Blood Gas Vent Mode CMV; Arterial Blood Gas Ventilator rate 22 /MIN
[2021-04-06 05:21] LABS: Hematocrit 48.2 % (37.0-47.0); Hemoglobin 15.9 g/dL (12.0-15.0); Mean Corpuscular Hemoglobin 29.8 pg (26-34); Mean Corpuscular Volume 90.3 fl (80-100); Platelet Count Result 340 k/mm3 (150-375); Red Blood Count 5.34 M/mm3 (4.2-5.4); Red Cell Distribution Width 12.7 % (11.5-14.5); White Blood Count 10.3 K/mm3 (4.5-10.0)
[2021-04-06] MEDS: LEVOTHYROXINE SODIUM 150 MCG TABLET PO (05:21)
[2021-04-06] MEDS: CENTRAL LINE FLUSH 10 ML IV PUSH ×3 (05:21→21:40)
[2021-04-06 05:39] LABS: D Dimer 2.61 ug/mL (<0.48)
--- NOTE | 2021-04-06 08:33 | WPDINTPN ---
Progress Note: A&P Assessment and Plan (1) Acute respiratory failure with hypoxia: Code(s): J96.01 - Acute respiratory failure with hypoxia Status: Acute Assessment and Plan: Acute Respiratory failure secondary to COVID-19 pneumonia Aadmitted 03/28 BiPAP Intubated 04/05 patient was placed in prone position overnight and will continue daily proning for 18 hours chest x-ray and ABG reviewed- withdraw ET tube by 1 cm FiO2 is down to 70% and peep is at 12 continue sedation with Versed and fentanyl infusions and chemical paralysis with neuromuscular ade for now Bronchodilators Chest CTA was negative for PE and lower extremity Dopplers were negative for DVT (2) Pneumonia due to COVID-19 virus: Code(s): U07.1 - COVID-19; J12.82 - Pneumonia due to coronavirus disease 2018 Status: Acute Assessment and Plan: Although patient did get Rajan Rajan vaccine for COVID-19 she was tested positive for COVID-19 PCR. Her clinical picture and radiology findings are all suggestive of COVID 19 pneumonia Continue dexamethasone (started 03/28). She has completed 5 day course of Remdesivir Patient received 1 dose of convalscent plasma In light of rapid deterioration and high CRP, patient was administered Tocilizumab 04/01. QuantiFERON gold test was ordered and is pending she has completed 5 day course of Rocephin and azithromycin continue to monitor inflammatory markers CRP is down to 1.9 (3) Multiple sclerosis: Code(s): G35 - Multiple sclerosis Status: Acute Assessment and Plan: currently not on any treatment (4) Hypothyroidism: Code(s): E03.9 - Hypothyroidism, unspecified Status: Acute Assessment and Plan: continue levothyroxine (5) Hyperglycemia: Code(s): R73.9 - Hyperglycemia, unspecified Status: Acute Assessment and Plan: sliding scale insulin Additional Plan DVT prophylaxis - continue Lovenox Stress ulcer prophylaxis - PPI Nutrition - continue tube feeding Code Status - patient request to be Full Code . I spoke to her patient by phone and updated him with patient's current status, overnight events, current treatment plan and guarded prognosis. he told me that patient did not want to be on life support for prolonged period of time if she is not getting better. Total Critical Care Time - 32 minutes Due to a high probability of clinically significant, life threatening deterioration, the patient required my highest level of preparedness to intervene emergently and I personally spent this critical care time directly and personally managing the patient. This critical care time included obtaining a history; examining the patient; pulse oximetry; ordering and review of studies; arranging urgent treatment with development of a management plan; evaluation of patient's response to treatment; frequent reassessment; and discussions with other providers. It was exclusive of separately billable procedures and treating other patients and teaching time. Please see Assessment and Plan section and the rest of the note for further information on patient assessment and treatment Subjective Date/time seen: 04/06/21 08:33 Overnight events reviewed. Afebrile Continues to be on mechanical ventilation. Patient was placed in prone position overnight. FiO2 is down to 70% and peep is at 12 Continues to be Sedatives and neuromuscular blockers Vitals acceptable Interval history: Review of Systems Review of Systems: ROS unobtainable: Yes unobtainable due to endotracheal tube and unobtainable due to medical condition Exam Narrative: Exam Narrative: General: Pt is sedated, chemically paralyzed, intubated and on mechanical ventilation. He is in prone position Lungs/Chest: Trachea central Coarse BS B/L, No crackles or wheezing. Cardiac: RRR. Normal S1 S2. No murmurs Circulation: Pedal pulses are intact and symmetrical. Abdomen:
[2021-04-06] MEDS: DEXAMETHASONE SOD PHOS INJ 4 MG/ML VIAL 6 MG IV PUSH (08:35)
[2021-04-06] MEDS: ATORVASTATIN 20 MG TABLET PO (08:35)
[2021-04-06] MEDS: ENOXAPARIN 40 MG/0.4 ML SYRINGE SUB-Q ×2 (08:36→21:40)
[2021-04-06] MEDS: MINERAL OIL/WHITE PETROLATUM OINTMENT 1 APPLIC EACH EYE ×2 (08:37→21:40)
[2021-04-06 08:51] LABS: Glucose Point of Care 155 mg/dl (65-105)
[2021-04-06 09:58] LABS: Alanine Aminotransferase 30 U/L (4-35); Albumin Level 3.5 g/dL (3.5-5.1); Alkaline Phosphatase 106 U/L (38-126); Anion Gap 12 mmol/L (8-16); Aspartate Amino Transferase 54 U/L (14-36); Bilirubin,Total 0.8 mg/dL (0.2-1.3); Blood Urea Nitrogen 16 mg/dL (7-17); CRP 0.9 mg/dL (<1.0); Calcium 9.2 mg/dL (8.4-10.2); Carbon Dioxide 22 mmol/L (22-30); Chloride 104 mmol/L (98-107); Estimated CRCL calculation 71 ml/min; Estimated Glomerular Filt Rate > 60; Glucose 131 mg/dL (65-110); Lactate Dehydrogenase 808 U/L (313-618); Magnesium 1.9 mg/dL (1.6-2.3); Potassium 4.2 mmol/L (3.4-5.0); Sodium 138 mmol/L (137-145)
[2021-04-06] MEDS: PANTOPRAZOLE SODIUM IV 40 MG VIAL IV PUSH (10:30)
--- NOTE | 2021-04-06 11:07 | PCDIET ---
ICU Rounding Note: Tube feeding held for 580mL gastric residual this morning after Glucerna 1.2 was advanced to 50mL/hr goal rate. MD rima Macdonald with plan to resume tube feedings later today. Last recorded weight is 92.3kg which is down from last review. -I/O. Bowel Motility: Last BM on 04/05/21 x 2. Labs Reviewed: WBC (10.3), Hgb (15.9), Hct (48.2), Glu (155) Meds Noted: Nimbex, Fentanyl, Synthroid, Versed, Decadron, Novolog, Protonix Additional Notes: Glucerna 1.2 at 50mL/hr goal rate will provide 1320kcal and 66g protein over 22 hours/day. May consider recommending increased rate over the next few days once patient tolerating better. Patient has been prone positioned 18 hours/day. No documented skin breakdown. Following daily in ICU rounds. Assessing/reassessing every Tuesday/Tuesday.
[2021-04-06] MEDS: CISATRACURIUM BESYLATE 200 MG in DEXTROSE 5% 80 ML 7.8 ML IV CONT (12:41)
[2021-04-06] MEDS: METOCLOPRAMIDE HCL 10 MG/10 ML SOLN UDC PO ×2 (12:54→18:10)
[2021-04-06 13:02] LABS: Glucose Point of Care 199 mg/dl (65-105)
[2021-04-06] MEDS: INSULIN ASPART (*BKC) 100 UNITS/ML SUB-Q ×2 (16:53→21:40)
[2021-04-06 17:04] LABS: Glucose Point of Care 231 mg/dl (65-105)
[2021-04-06 21:52] LABS: Glucose Point of Care 204 mg/dl (65-105)
[2021-04-07] VITALS (34 sets, daily range): BP systolic 93–123; BP diastolic 61–78; PULSE 98–117; RESP 21–22; TEMP 36.9–37.6; O2SAT 97–100
[2021-04-07 00:28] LABS: NIL 0.03 IU/mL; Quantiferon TB Plus, 1T INDETERMINATE (NEGATIVE); TB1-NIL <0.00 IU/mL; TB2-NIL <0.00 IU/mL
[2021-04-07] MEDS: METOCLOPRAMIDE HCL 10 MG/10 ML SOLN UDC PO ×5 (00:45→23:41)
[2021-04-07 01:06] LABS: Glucose Point of Care 198 mg/dl (65-105)
[2021-04-07] MEDS: CISATRACURIUM BESYLATE 200 MG in DEXTROSE 5% 80 ML 7.8 ML IV CONT ×2 (01:56→16:00)
[2021-04-07 05:03] LABS: Alveolar/Arterial O2 Gradient 321.2 mmHg; Base Excess ABG -1.6 mEq/l (+/-2.0); Carboxyhemoglobin 0.3 % THb (0-2.0); Fractional Inspired Oxygen 55 %; Methemoglobin ABG 0.5 %THb (0-1.5); Oxygen Content ABG 24.3 %vol (16.0-22.0); Oxygen Saturation ABG 97.5 % (95.0-100.0); Oxyhemoglobin 96.5 % THb (90.0-100.0); PCO2 ABG 38.9 mmHg (35.0-45.0); PO2 ABG 98.7 mmHg (80.0-100.0); PO2 FiO2 Ratio Arterial Blood 1.79 %; Reduced Hemoglobin 2.7 %THb (0-5.0); Total Hemoglobin 17.9 g/dL (12.0-18.0)
[2021-04-07 05:05] LABS: Device VENTILATOR; Modified Allen's Test Pass; Site Drawn RIGHT RADIAL
[2021-04-07 05:06] LABS: Arterial Blood Gas PEEP 10 cmH2O; Arterial Blood Gas Tidal Volume 360 ml; Arterial Blood Gas Vent Mode CMV; Arterial Blood Gas Ventilator rate 22 /MIN
[2021-04-07] MEDS: LEVOTHYROXINE SODIUM 150 MCG TABLET PO (05:12)
[2021-04-07] MEDS: CENTRAL LINE FLUSH 10 ML IV PUSH ×3 (05:12→20:41)
[2021-04-07] MEDS: FENTANYL 2,500MCG/NS250ML(*CRX 2,500 MCG/250 ML BAG 17.5 MCG IV CONT (05:38)
[2021-04-07 06:03] LABS: Glucose Point of Care 162 mg/dl (65-105)
[2021-04-07 08:21] LABS: Glucose Point of Care 143 mg/dl (65-105)
[2021-04-07] MEDS: ATORVASTATIN 20 MG TABLET PO (08:41)
[2021-04-07] MEDS: ENOXAPARIN 40 MG/0.4 ML SYRINGE SUB-Q ×2 (08:42→20:40)
[2021-04-07] MEDS: PANTOPRAZOLE SODIUM IV 40 MG VIAL IV PUSH (08:43)
[2021-04-07] MEDS: MINERAL OIL/WHITE PETROLATUM OINTMENT 1 APPLIC EACH EYE ×2 (08:43→20:40)
[2021-04-07] MEDS: MIDAZOLAM 100MG/NS 100ML(*CRX) 100 MG/100 ML BAG IV CONT (09:26)
[2021-04-07 11:47] LABS: Glucose Point of Care 168 mg/dl (65-105)
--- NOTE | 2021-04-07 12:27 | WPDINTPN ---
Progress Note: A&P Assessment and Plan (1) Acute respiratory failure with hypoxia: Code(s): J96.01 - Acute respiratory failure with hypoxia Status: Acute Assessment and Plan: Acute Respiratory failure secondary to COVID-19 pneumonia Aadmitted 03/28 BiPAP Intubated 04/05 patient was placed in prone position overnight and will continue daily proning for 18 hours chest x-ray and ABG reviewed- FiO2 is down to 50% and peep is at 10 continue sedation with Versed and fentanyl infusions and chemical paralysis with neuromuscular ade for now Bronchodilators Chest CTA was negative for PE and lower extremity Dopplers were negative for DVT (2) Pneumonia due to COVID-19 virus: Code(s): U07.1 - COVID-19; J12.82 - Pneumonia due to coronavirus disease 2018 Status: Acute Assessment and Plan: Although patient did get Rajan Rajan vaccine for COVID-19 she was tested positive for COVID-19 PCR. Her clinical picture and radiology findings are all suggestive of COVID 19 pneumonia Continue dexamethasone (started 03/28). She has completed 5 day course of Remdesivir Patient received 1 dose of convalscent plasma In light of rapid deterioration and high CRP, patient was administered Tocilizumab 04/01. QuantiFERON gold test was ordered is indeterminate she has completed 5 day course of Rocephin and azithromycin continue to monitor inflammatory markers CRP is down to 0.9 (3) Multiple sclerosis: Code(s): G35 - Multiple sclerosis Status: Acute Assessment and Plan: currently not on any treatment (4) Hypothyroidism: Code(s): E03.9 - Hypothyroidism, unspecified Status: Acute Assessment and Plan: continue levothyroxine (5) Hyperglycemia: Code(s): R73.9 - Hyperglycemia, unspecified Status: Acute Assessment and Plan: sliding scale insulin Additional Plan DVT prophylaxis - continue Lovenox Stress ulcer prophylaxis - PPI Nutrition - continue tube feeding Code Status - full code . per patient's , he stated that patient did not want to be on life support for prolonged period of time if she is not getting better. Total Critical Care Time - 34 minutes Due to a high probability of clinically significant, life threatening deterioration, the patient required my highest level of preparedness to intervene emergently and I personally spent this critical care time directly and personally managing the patient. This critical care time included obtaining a history; examining the patient; pulse oximetry; ordering and review of studies; arranging urgent treatment with development of a management plan; evaluation of patient's response to treatment; frequent reassessment; and discussions with other providers. It was exclusive of separately billable procedures and treating other patients and teaching time. Please see Assessment and Plan section and the rest of the note for further information on patient assessment and treatment Subjective Date/time seen: 04/07/21 12:27 Interval history: Reason for consult: Respiratory failure due to Covid-19 04/07/2021: Pt seen and examined in the ICU. Remains intubated on CMV mode, peep of 10, FiO2 of 55%. pt sedated on fentanyl, Versed and Nimbex infusion. Patient is in prone position. Low urine output, tolerating tube feeds better. No issues overnight Review of Systems Review of Systems: ROS unobtainable: Yes unobtainable due to endotracheal tube and unobtainable due to medical condition Exam Narrative: Exam Narrative: General: Pt is sedated, chemically paralyzed, intubated and on mechanical ventilation. She is in prone position Lungs/Chest: Trachea central Coarse BS B/L, No crackles or wheezing. Cardiac: RRR. Normal S1 S2. No murmurs Circulation: Pedal pulses are intact and symmetrical. Abdomen: Decreased bowel sounds. Obese. Soft. NT. ND. Extremities: No clubbing, cyanosis or edema. Warm :
--- NOTE | 2021-04-07 12:28 | PCDIET ---
Nutrition Follow-Up Complete: Nutrition Diagnosis: Inadequate oral intake related to pneumonia as evidenced by poor intake reported. Nutrition Goal: Meet estimated nutritional needs. Goal in progress. RN increasing Glucerna 1.2 to 30mL/hr with goal of 50mL/hr. Residuals now under 100mL. Last recorded weight is 92.4 kg which is stable with last review. Bowel Motility: Last documented BM on 04/05/21 x 2. Labs Reviewed: Glu (143) Meds Noted: Synthroid, Reglan, Versed, Lipitor, Nimbex, Fentanyl, Protonix Additional Notes: No documented skin breakdown. Will continue to monitor with same goal. Nutrition Monitoring and Evaluation: Follow up every Tuesday/Tuesday.
[2021-04-07 17:18] LABS: Glucose Point of Care 190 mg/dl (65-105)
[2021-04-07] MEDS: FENTANYL 2,500MCG/NS250ML(*CRX 2,500 MCG/250 ML BAG 15 MCG IV CONT (20:34)
[2021-04-07 20:53] LABS: Glucose Point of Care 184 mg/dl (65-105)
--- NOTE | 2021-04-07 22:30 | PC.NURSE ---
Patient placed in prone position.
[2021-04-08] VITALS (43 sets, daily range): BP systolic 115–153; BP diastolic 68–81; PULSE 86–114; RESP 22; TEMP 36.4–37; O2SAT 93–100
[2021-04-08 00:06] LABS: Glucose Point of Care 186 mg/dl (65-105)
[2021-04-08] MEDS: MIDAZOLAM 100MG/NS 100ML(*CRX) 100 MG/100 ML BAG 6 MG IV CONT (02:24)
[2021-04-08] MEDS: CISATRACURIUM BESYLATE 200 MG in DEXTROSE 5% 80 ML 9.36 ML IV CONT ×2 (02:27→12:50)
[2021-04-08 04:43] LABS: Hematocrit 48.6 % (37.0-47.0); Hemoglobin 16.2 g/dL (12.0-15.0); Mean Corpuscular HGB Conc 33.3 g/dl (32-36); Mean Corpuscular Hemoglobin 30.5 pg (26-34); Mean Corpuscular Volume 91.4 fl (80-100); Mean Platelet Volume 10.5 fl (7.4-10.4); Platelet Count Result 290 k/mm3 (150-375); Red Blood Count 5.32 M/mm3 (4.2-5.4); White Blood Count 12.1 K/mm3 (4.5-10.0)
[2021-04-08] MEDS: METOCLOPRAMIDE HCL 10 MG/10 ML SOLN UDC PO ×3 (04:54→17:36)
[2021-04-08] MEDS: LEVOTHYROXINE SODIUM 150 MCG TABLET PO (04:55)
[2021-04-08] MEDS: CENTRAL LINE FLUSH 10 ML IV PUSH ×3 (04:55→21:00)
[2021-04-08 04:59] LABS: Alanine Aminotransferase 38 U/L (4-35); Albumin Level 3.2 g/dL (3.5-5.1); Alkaline Phosphatase 96 U/L (38-126); Anion Gap 6 mmol/L (8-16); Aspartate Amino Transferase 48 U/L (14-36); Bilirubin,Total 0.8 mg/dL (0.2-1.3); Blood Urea Nitrogen 27 mg/dL (7-17); CRP < 0.5 mg/dL (<1.0); Carbon Dioxide 27 mmol/L (22-30); Chloride 101 mmol/L (98-107); Estimated CRCL calculation 68 ml/min; Estimated Glomerular Filt Rate > 60; Glucose 185 mg/dL (65-110); Lactate Dehydrogenase 559 U/L (313-618); Magnesium 1.9 mg/dL (1.6-2.3); Potassium 4.4 mmol/L (3.4-5.0); Sodium 134 mmol/L (137-145)
[2021-04-08 05:06] LABS: D Dimer 1.47 ug/mL (<0.48)
[2021-04-08 05:12] LABS: Alveolar/Arterial O2 Gradient 212.4 mmHg; Base Excess ABG -1.5 mEq/l (+/-2.0); Carboxyhemoglobin 0.3 % THb (0-2.0); Fractional Inspired Oxygen 50 %; HCO3 ABG 25.5 mEq/l (22.0-26.0); Methemoglobin ABG 0.5 %THb (0-1.5); Oxygen Content ABG 22.6 %vol (16.0-22.0); Oxygen Saturation ABG 95.8 % (95.0-100.0); PCO2 ABG 50.9 mmHg (35.0-45.0); PO2 ABG 86.8 mmHg (80.0-100.0); PO2 FiO2 Ratio Arterial Blood 1.74 %; Reduced Hemoglobin 4.2 %THb (0-5.0); Total Hemoglobin 16.9 g/dL (12.0-18.0); pH ABG 7.317 (7.350-7.450)
[2021-04-08 05:13] LABS: Arterial Blood Gas Vent Mode CMV; Arterial Blood Gas Ventilator rate 22 /MIN; Device VENTILATOR; Modified Allen's Test Pass; Site Drawn RIGHT RADIAL
[2021-04-08 05:14] LABS: Arterial Blood Gas PEEP 10 cmH2O; Arterial Blood Gas Tidal Volume 360 ml
[2021-04-08] MEDS: ATORVASTATIN 20 MG TABLET PO (09:20)
[2021-04-08] MEDS: PANTOPRAZOLE SODIUM IV 40 MG VIAL IV PUSH (09:20)
[2021-04-08] MEDS: ENOXAPARIN 40 MG/0.4 ML SYRINGE SUB-Q ×2 (09:21→21:00)
[2021-04-08] MEDS: MINERAL OIL/WHITE PETROLATUM OINTMENT 1 APPLIC EACH EYE ×2 (09:21→20:59)
[2021-04-08 09:30] LABS: Glucose Point of Care 179 mg/dl (65-105)
[2021-04-08] MEDS: FENTANYL 2,500MCG/NS250ML(*CRX 2,500 MCG/250 ML BAG 20 MCG IV CONT (10:43)
--- NOTE | 2021-04-08 11:13 | PCDIET ---
ICU Rounding Note: Patient tolerating Glucerna 1.2 at 40mL/hr with 30mL water flush every 4 hours, per RN. Plan to increase tube feeding to goal of 50mL/hr today. Documented gastric residuals 100mL and below. Last recorded weight is 105.8kg which is increased from last review. +I/O. Bowel Motility: Last documented BM on 04/05/21 x 2. MD adding Miralax. Labs Reviewed: WBC (12.1), Hgb (16.2), Hct (48.6), Glu (185), BUN (27), Na (134), Alb (3.2) Meds Noted: Lipitor, Synthroid, Nimbex, Reglan, Fentanyl, Versed, Protonix Additional Notes: No documented skin breakdown. Following daily in ICU rounds. Assessing/reassessing every Tuesday/Tuesday.
[2021-04-08 13:00] LABS: Glucose Point of Care 192 mg/dl (65-105)
--- NOTE | 2021-04-08 13:13 | WPDINTPN ---
Progress Note: A&P Assessment and Plan (1) Acute respiratory failure with hypoxia: Code(s): J96.01 - Acute respiratory failure with hypoxia Status: Acute Assessment and Plan: Acute Respiratory failure secondary to COVID-19 pneumonia Aadmitted 03/28 BiPAP Intubated 04/05 patient was placed in prone position overnight and will continue daily proning for 18 hours chest x-ray and ABG reviewed- FiO2 is down to 45%% and peep is at 10 continue sedation with Versed and fentanyl infusions and chemical paralysis with neuromuscular ade for now Bronchodilators Chest CTA was negative for PE and lower extremity Dopplers were negative for DVT (2) Pneumonia due to COVID-19 virus: Code(s): U07.1 - COVID-19; J12.82 - Pneumonia due to coronavirus disease 2018 Status: Acute Assessment and Plan: Although patient did get Arjan Rajan vaccine for COVID-19 she was tested positive for COVID-19 PCR. Her clinical picture and radiology findings are all suggestive of COVID 19 pneumonia Continue dexamethasone (started 03/28). She has completed 5 day course of Remdesivir Patient received 1 dose of convalscent plasma In light of rapid deterioration and high CRP, patient was administered Tocilizumab 04/01. QuantiFERON gold test was ordered is indeterminate she has completed 5 day course of Rocephin and azithromycin continue to monitor inflammatory markers CRP is down to 0.9 (3) Multiple sclerosis: Code(s): G35 - Multiple sclerosis Status: Acute Assessment and Plan: currently not on any treatment (4) Hypothyroidism: Code(s): E03.9 - Hypothyroidism, unspecified Status: Acute Assessment and Plan: continue levothyroxine (5) Hyperglycemia: Code(s): R73.9 - Hyperglycemia, unspecified Status: Acute Assessment and Plan: sliding scale insulin Additional Plan DVT prophylaxis - continue Lovenox Stress ulcer prophylaxis - PPI Nutrition - continue tube feeding Code Status - full code . per patient's , he stated that patient did not want to be on life support for prolonged period of time if she is not getting better. Total Critical Care Time - 34 minutes Due to a high probability of clinically significant, life threatening deterioration, the patient required my highest level of preparedness to intervene emergently and I personally spent this critical care time directly and personally managing the patient. This critical care time included obtaining a history; examining the patient; pulse oximetry; ordering and review of studies; arranging urgent treatment with development of a management plan; evaluation of patient's response to treatment; frequent reassessment; and discussions with other providers. It was exclusive of separately billable procedures and treating other patients and teaching time. Please see Assessment and Plan section and the rest of the note for further information on patient assessment and treatment Subjective Date/time seen: 04/08/21 13:13 Interval history: Reason for consult: Respiratory failure due to Covid-19 04/08/2021: Pt seen and examined in the ICU. Remains intubated on CMV mode, peep of 10, FiO2 of 50%. pt sedated on fentanyl, Versed and Nimbex infusion. Patient is in prone position. urine output improving, tolerating tube feeds better. No issues overnight Review of Systems Review of Systems: ROS unobtainable: Yes unobtainable due to endotracheal tube and unobtainable due to medical condition Exam Narrative: Exam Narrative: General: Pt is sedated, chemically paralyzed, intubated and on mechanical ventilation. She is in prone position Lungs/Chest: Trachea central Coarse BS B/L, No crackles or wheezing. Cardiac: RRR. Normal S1 S2. No murmurs Circulation: Pedal pulses are intact and symmetrical. Abdomen: Decreased bowel sounds. Obese. Soft. NT. ND. Extremities: No clubbing, cyanosis or edema.
[2021-04-08 19:58] LABS: Glucose Point of Care 165 mg/dl (65-105)
[2021-04-08] MEDS: CISATRACURIUM BESYLATE 200 MG in DEXTROSE 5% 80 ML 10.92 ML IV CONT (20:56)
[2021-04-08] MEDS: MIDAZOLAM 100MG/NS 100ML(*CRX) 100 MG/100 ML BAG IV CONT (20:58)
[2021-04-08 21:22] LABS: Glucose Point of Care 178 mg/dl (65-105)
[2021-04-09] VITALS (52 sets, daily range): BP systolic 91–177; BP diastolic 62–88; PULSE 96–121; RESP 22–29; TEMP 35.5–37.7; O2SAT 96–98
[2021-04-09] MEDS: FENTANYL 2,500MCG/NS250ML(*CRX 2,500 MCG/250 ML BAG 17.5 MCG IV CONT (00:41)
[2021-04-09] MEDS: METOCLOPRAMIDE HCL 10 MG/10 ML SOLN UDC PO ×4 (00:44→17:42)
[2021-04-09 01:33] LABS: Glucose Point of Care 172 mg/dl (65-105)
[2021-04-09 04:27] LABS: Hematocrit 44.3 % (37.0-47.0); Hemoglobin 14.7 g/dL (12.0-15.0); Mean Corpuscular HGB Conc 33.2 g/dl (32-36); Mean Corpuscular Volume 90.4 fl (80-100); Mean Platelet Volume 10.5 fl (7.4-10.4); Platelet Count Result 251 k/mm3 (150-375); Red Cell Distribution Width 13.2 % (11.5-14.5); White Blood Count 12.2 K/mm3 (4.5-10.0)
[2021-04-09 04:40] LABS: Alanine Aminotransferase 43 U/L (4-35); Albumin Level 3.1 g/dL (3.5-5.1); Alkaline Phosphatase 95 U/L (38-126); Anion Gap 7 mmol/L (8-16); Aspartate Amino Transferase 62 U/L (14-36); Bilirubin,Total 0.6 mg/dL (0.2-1.3); Blood Urea Nitrogen 18 mg/dL (7-17); Calcium 7.8 mg/dL (8.4-10.2); Carbon Dioxide 25 mmol/L (22-30); Chloride 102 mmol/L (98-107); Estimated CRCL calculation 100 ml/min; Estimated Glomerular Filt Rate > 60; Glucose 219 mg/dL (65-110); Magnesium 1.8 mg/dL (1.6-2.3); Phosphorus 3.9 mg/dL (2.5-4.5); Potassium 4.2 mmol/L (3.4-5.0); Sodium 134 mmol/L (137-145)
[2021-04-09 05:23] LABS: Alveolar/Arterial O2 Gradient 210.3 mmHg; Carboxyhemoglobin 0.3 % THb (0-2.0); Fractional Inspired Oxygen 60 %; HCO3 ABG 27.3 mEq/l (22.0-26.0); Methemoglobin ABG 0.5 %THb (0-1.5); Oxygen Content ABG 23.1 %vol (16.0-22.0); Oxygen Saturation ABG 98.1 % (95.0-100.0); PO2 ABG 138.9 mmHg (80.0-100.0); PO2 FiO2 Ratio Arterial Blood 2.31 %; Reduced Hemoglobin 2.2 %THb (0-5.0); Total Hemoglobin 16.8 g/dL (12.0-18.0)
[2021-04-09 05:27] LABS: Device VENTILATOR; PCO2 ABG 71.5 mmHg (35.0-45.0); Site Drawn RIGHT RADIAL; pH ABG 7.199 (7.350-7.450)
[2021-04-09 05:28] LABS: Arterial Blood Gas Vent Mode CMV; Arterial Blood Gas Ventilator rate 22 /MIN; Modified Allen's Test Pass
[2021-04-09 05:29] LABS: Arterial Blood Gas PEEP 10 cmH2O; Arterial Blood Gas Tidal Volume 360 ml
[2021-04-09] MEDS: CISATRACURIUM BESYLATE 200 MG in DEXTROSE 5% 80 ML 9.36 ML IV CONT ×2 (05:54→10:01)
[2021-04-09] MEDS: CENTRAL LINE FLUSH 10 ML IV PUSH ×3 (06:01→21:07)
[2021-04-09] MEDS: LEVOTHYROXINE SODIUM 150 MCG TABLET PO (06:02)
[2021-04-09] MEDS: INSULIN ASPART (*BKC) 100 UNITS/ML SUB-Q ×2 (06:04→12:33)
[2021-04-09 07:04] LABS: Lactic Acid Reflex 1.3 mmol/L (0.7-2.1)
[2021-04-09 07:18] LABS: Add Urine Microscopic? YES; Appearance Urine Clear (Clear); Bacteria Urine Trace /hpf; Bilirubin Urine Negative (Negative); Blood Urine 1+ (Negative); Color Urine Yellow (Yellow); Glucose Urine UA 1+ mg/dL (Negative); Ketones Urine Negative (Negative); Leukocyte Esterase Ur Trace LEU/UL (NEGATIVE); Mucus Urine Rare /lpf; Nitrate Urine Negative (Negative); Protein Urine 1+ mg/dL (Negative); Specific Grav Ur 1.025 (1.001-1.035); Squamous Epithelial Cell Urine Rare /hpf (Few); WBC Urine 21-30 /hpf (0-3)
[2021-04-09] MEDS: ENOXAPARIN 40 MG/0.4 ML SYRINGE SUB-Q ×2 (08:28→21:03)
[2021-04-09] MEDS: MINERAL OIL/WHITE PETROLATUM OINTMENT 1 APPLIC EACH EYE ×2 (08:29→21:03)
[2021-04-09] MEDS: PANTOPRAZOLE SODIUM IV 40 MG VIAL IV PUSH (08:29)
[2021-04-09] MEDS: ATORVASTATIN 20 MG TABLET PO (08:29)
[2021-04-09 09:41] LABS: Glucose Point of Care 183 mg/dl (65-105)
[2021-04-09] MEDS: polyethylene glycoL 3350 17 GM POWD.PACK PO (10:03)
--- NOTE | 2021-04-09 11:20 | PCDIET ---
Nutrition Follow-Up Complete: Nutrition Diagnosis: Inadequate oral intake related to pneumonia as evidenced by poor intake reported. Nutrition Goal: Meet estimated nutritional needs Goal in progress. Tube feedings held overnight due to increased oxygen requirements. Patient currently proning. Tube feedings resumed, per RN. Last recorded weight is 106.9 kg which is increased from last review. +I/O. Bowel Motility: Last documented BM on 04/05/21 x 2. Labs Reviewed: WBC (12.2), Glu (219), BUN (18), Cr (0.6), Na (134), Alb (3.1), [place] Ca (8.52) Meds Noted: Lipitor, Fentanyl, Reglan, Cefepime, Versed, Vancomycin, Nimbex, Synthroid, Protonix, Miralax Additional Notes: Noted patient had 250mL residual overnight. Reglan continued. RN reports good bowel sounds. Will continue to monitor with same goal. Nutrition Monitoring and Evaluation: Will monitor every Tuesday/Tuesday.
--- NOTE | 2021-04-09 11:53 | WPDINTPN ---
Progress Note: A&P Assessment and Plan (1) Acute respiratory failure with hypoxia: Code(s): J96.01 - Acute respiratory failure with hypoxia Status: Acute Assessment and Plan: Acute Respiratory failure secondary to COVID-19 pneumonia Aadmitted 03/28 BiPAP Intubated 04/05 patient was placed in prone position overnight and will continue daily proning for 18 hours 04/09: no major change was seen on the chest x-ray, although patient was hypercapnic with pH of 7.19 and pCO2 of 71, ventilator was adjusted, patient was also hypoxic overnight and her FiO2 was increased to 80%, FiO2 has been decreased to 60% and peep of 10 continue sedation with Versed and fentanyl infusions and chemical paralysis with neuromuscular ade for now Bronchodilators Chest CTA was negative for PE and lower extremity Dopplers were negative for DVT - repeat ABGs pending (2) Pneumonia due to COVID-19 virus: Code(s): U07.1 - COVID-19; J12.82 - Pneumonia due to coronavirus disease 2019 Status: Acute Assessment and Plan: Although patient did get Rajan Rajan vaccine for COVID-19 she was tested positive for COVID-19 PCR. Her clinical picture and radiology findings are all suggestive of COVID 19 pneumonia Continue dexamethasone (started 03/28). She has completed 5 day course of Remdesivir Patient received 1 dose of convalscent plasma In light of rapid deterioration and high CRP, patient was administered Tocilizumab 04/01. QuantiFERON gold test was ordered is indeterminate she has completed 5 day course of Rocephin and azithromycin - inflammatory markers trending down, - CRP is down to <0.5 (3) Multiple sclerosis: Code(s): G35 - Multiple sclerosis Status: Acute Assessment and Plan: currently not on any treatment (4) Hypothyroidism: Code(s): E03.9 - Hypothyroidism, unspecified Status: Acute Assessment and Plan: continue levothyroxine (5) Hyperglycemia: Code(s): R73.9 - Hyperglycemia, unspecified Status: Acute Assessment and Plan: sliding scale insulin Additional Plan DVT prophylaxis - continue Lovenox Stress ulcer prophylaxis - PPI Nutrition - continue tube feeding Code Status - full code . per patient's , he stated that patient did not want to be on life support for prolonged period of time if she is not getting better. Total Critical Care Time - 32 minutes Due to a high probability of clinically significant, life threatening deterioration, the patient required my highest level of preparedness to intervene emergently and I personally spent this critical care time directly and personally managing the patient. This critical care time included obtaining a history; examining the patient; pulse oximetry; ordering and review of studies; arranging urgent treatment with development of a management plan; evaluation of patient's response to treatment; frequent reassessment; and discussions with other providers. It was exclusive of separately billable procedures and treating other patients and teaching time. Please see Assessment and Plan section and the rest of the note for further information on patient assessment and treatment Subjective Date/time seen: 04/09/21 11:53 Interval history: Reason for consult: Respiratory failure due to Covid-19 04/09/2021: Patient seen and examined the ICU, remains intubated wants mechanical ventilation, peep of 10 and 60% FiO2 at this time. - Overnight patient after being placed in supine position dropped her O2 sats, was hypothermic, tachycardic. ABGs showed a pH of 7.19, pCO2 of 71 and PO2 of 138 on 60% FiO2. Ventilator adjustments were made and the respiratory rate was increased. Urine output has been adequate patient was placed on Darlin Hugger which is currently off. Tolerating tube feeds. Remains on fentanyl, Versed and Nimbex infusions Review of Systems Review of Systems: ROS unobtainabl
[2021-04-09 12:03] LABS: Alveolar/Arterial O2 Gradient 174.8 mmHg; Arterial Blood Gas Vent Mode CMV; Arterial Blood Gas Ventilator rate 28 /MIN; Base Excess ABG -0.2 mEq/l (+/-2.0); Device VENTILATOR; Fractional Inspired Oxygen 50 %; Modified Allen's Test Unable to perform; Oxygen Content ABG 19.8 %vol (16.0-22.0); Oxygen Saturation ABG 98.8 % (95.0-100.0); Oxyhemoglobin 97.6 % THb (90.0-100.0); PCO2 ABG 37.7 mmHg (35.0-45.0); PO2 ABG 139.3 mmHg (80.0-100.0); PO2 FiO2 Ratio Arterial Blood 2.79 %; Site Drawn LEFT RADIAL; Total Hemoglobin 14.3 g/dL (12.0-18.0); pH ABG 7.421 (7.350-7.450)
[2021-04-09 12:04] LABS: Arterial Blood Gas PEEP 5 cmH2O; Arterial Blood Gas Tidal Volume 360 ml
[2021-04-09] MEDS: FENTANYL 2,500MCG/NS250ML(*CRX 2,500 MCG/250 ML BAG 20 MCG IV CONT (14:38)
[2021-04-09 14:43] LABS: Glucose Point of Care 203 mg/dl (65-105)
[2021-04-09] MEDS: MIDAZOLAM 100MG/NS 100ML(*CRX) 100 MG/100 ML BAG 6 MG IV CONT (16:49)
[2021-04-09 17:12] LABS: Glucose Point of Care 166 mg/dl (65-105)
[2021-04-09] MEDS: CISATRACURIUM BESYLATE 200 MG in DEXTROSE 5% 80 ML 10.92 ML IV CONT (21:01)
[2021-04-09 21:19] LABS: Glucose Point of Care 179 mg/dl (65-105)
[2021-04-10] VITALS (49 sets, daily range): BP systolic 88–171; BP diastolic 65–82; PULSE 92–115; RESP 28; TEMP 36.5–37.7; O2SAT 94–99
[2021-04-10] MEDS: METOCLOPRAMIDE HCL 10 MG/10 ML SOLN UDC PO ×5 (02:15→23:29)
[2021-04-10] MEDS: FENTANYL 2,500MCG/NS250ML(*CRX 2,500 MCG/250 ML BAG 20 MCG IV CONT ×2 (03:00→15:49)
[2021-04-10 04:02] LABS: Glucose Point of Care 172 mg/dl (65-105)
[2021-04-10 04:19] LABS: Hematocrit 40.2 % (37.0-47.0); Hemoglobin 13.2 g/dL (12.0-15.0); Mean Corpuscular HGB Conc 32.8 g/dl (32-36); Mean Corpuscular Hemoglobin 30.1 pg (26-34); Mean Corpuscular Volume 91.6 fl (80-100); Mean Platelet Volume 11.1 fl (7.4-10.4); Platelet Count Result 169 k/mm3 (150-375); Red Blood Count 4.39 M/mm3 (4.2-5.4); Red Cell Distribution Width 13.2 % (11.5-14.5)
[2021-04-10 04:34] LABS: D Dimer 1.26 ug/mL (<0.48)
[2021-04-10 04:39] LABS: Alanine Aminotransferase 39 U/L (4-35); Albumin Level 3.1 g/dL (3.5-5.1); Alkaline Phosphatase 84 U/L (38-126); Anion Gap 4 mmol/L (8-16); Aspartate Amino Transferase 56 U/L (14-36); Bilirubin,Total 0.7 mg/dL (0.2-1.3); Blood Urea Nitrogen 18 mg/dL (7-17); CRP < 0.5 mg/dL (<1.0); Calcium 8.6 mg/dL (8.4-10.2); Carbon Dioxide 29 mmol/L (22-30); Chloride 97 mmol/L (98-107); Estimated CRCL calculation 87 ml/min; Estimated Glomerular Filt Rate > 60; Glucose 137 mg/dL (65-110); Lactate Dehydrogenase 597 U/L (313-618); Magnesium 1.8 mg/dL (1.6-2.3); Phosphorus 2.9 mg/dL (2.5-4.5); Potassium 4.3 mmol/L (3.4-5.0); Sodium 130 mmol/L (137-145)
[2021-04-10 05:31] LABS: Alveolar/Arterial O2 Gradient 208.3 mmHg; Base Excess ABG 1.9 mEq/l (+/-2.0); Carboxyhemoglobin 0.3 % THb (0-2.0); Device VENTILATOR; Fractional Inspired Oxygen 50 %; HCO3 ABG 26.3 mEq/l (22.0-26.0); Methemoglobin ABG 0.4 %THb (0-1.5); Modified Allen's Test Pass; Oxygen Content ABG 19.1 %vol (16.0-22.0); Oxygen Saturation ABG 97.8 % (95.0-100.0); Oxyhemoglobin 96.6 % THb (90.0-100.0); PCO2 ABG 40.4 mmHg (35.0-45.0); PO2 ABG 102.8 mmHg (80.0-100.0); PO2 FiO2 Ratio Arterial Blood 2.06 %; Reduced Hemoglobin 2.7 %THb (0-5.0); Site Drawn RIGHT RADIAL; pH ABG 7.431 (7.350-7.450)
[2021-04-10 05:32] LABS: Arterial Blood Gas PEEP 10 cmH2O; Arterial Blood Gas Tidal Volume 360 ml; Arterial Blood Gas Vent Mode CMV; Arterial Blood Gas Ventilator rate 28 /MIN
[2021-04-10] MEDS: CENTRAL LINE FLUSH 10 ML IV PUSH ×3 (06:02→22:21)
[2021-04-10] MEDS: LEVOTHYROXINE SODIUM 150 MCG TABLET PO (06:03)
[2021-04-10] MEDS: CISATRACURIUM BESYLATE 200 MG in DEXTROSE 5% 80 ML 14.04 ML IV CONT ×2 (07:00→13:07)
[2021-04-10] MEDS: ENOXAPARIN 40 MG/0.4 ML SYRINGE SUB-Q ×2 (09:48→20:57)
[2021-04-10] MEDS: polyethylene glycoL 3350 17 GM POWD.PACK PO (09:49)
[2021-04-10] MEDS: ATORVASTATIN 20 MG TABLET PO (09:49)
[2021-04-10] MEDS: PANTOPRAZOLE SODIUM IV 40 MG VIAL IV PUSH (09:49)
[2021-04-10] MEDS: MINERAL OIL/WHITE PETROLATUM OINTMENT 1 APPLIC EACH EYE ×2 (09:50→20:57)
[2021-04-10] MEDS: MIDAZOLAM 100MG/NS 100ML(*CRX) 100 MG/100 ML BAG 6 MG IV CONT ×2 (09:51→22:21)
[2021-04-10 10:20] LABS: Glucose Point of Care 141 mg/dl (65-105)
--- NOTE | 2021-04-10 11:15 | PCDIET ---
Nutrition Follow-Up Complete: Nutrition Diagnosis: Inadequate oral intake related to pneumonia as evidenced by poor intake reported. Nutrition Goal: Meet estimated nutritional needs. Goal not met. Tube feedings held since patient was placed prone at 0300 today. MD order to resume Glucerna 1.2 tube feedings at previous goal of 50mL/hr with 30mL water flush every 4 hours. Proning continues. Last recorded weight is 105.8 kg which is down from last review. +I/O. Bowel Motility: Last documented BM on 04/05/21 x 2. Patient continues Reglan and Miralax. Discussed during rounds. Residuals 280mL and below. Labs Reviewed: Glu (137), BUN (18), Na (130), Alb (3.1) Meds Noted: Lipitor, Nimbex, Reglan, Versed, Miralax, Cefepime, Fentanyl, Synthroid, Protonix, Vancomycin Additional Notes: RN reports redness to abdominal folds. No other skin issues. Will continue to monitor with same goal. Nutrition Monitoring and Evaluation: Follow up every Tuesday/Tuesday.
[2021-04-10] MEDS: TOLNAFTATE 1% POWDER 45 GM BTL 1 APPLIC TOPICAL ×2 (13:07→20:57)
--- NOTE | 2021-04-10 13:07 | WPDINTPN ---
Progress Note: A&P Assessment and Plan (1) Acute respiratory failure with hypoxia: Code(s): J96.01 - Acute respiratory failure with hypoxia Status: Acute Assessment and Plan: Acute Respiratory failure secondary to COVID-19 pneumonia Aadmitted 03/28 BiPAP Intubated 04/05 patient was placed in prone position overnight and will continue daily proning for 18 hours 04/09: no major change was seen on the chest x-ray, although patient was hypercapnic with pH of 7.19 and pCO2 of 71, ventilator was adjusted, patient was also hypoxic overnight and her FiO2 was increased to 80%, - currently on FiO2 of 45% and peep of 10. ABGs and chest x-ray better -continue sedation with Versed and fentanyl infusions and chemical paralysis with neuromuscular ade for now Bronchodilators Chest CTA was negative for PE and lower extremity Dopplers were negative for DVT (2) Pneumonia due to COVID-19 virus: Code(s): U07.1 - COVID-19; J12.82 - Pneumonia due to coronavirus disease 2019 Status: Acute Assessment and Plan: Although patient did get Muse vaccine for COVID-19 she was tested positive for COVID-19 PCR. Her clinical picture and radiology findings are all suggestive of COVID 19 pneumonia Continue dexamethasone (started 03/28). She has completed 5 day course of Remdesivir Patient received 1 dose of convalscent plasma In light of rapid deterioration and high CRP, patient was administered Tocilizumab 04/01. QuantiFERON gold test was ordered is indeterminate she has completed 5 day course of Rocephin and azithromycin - inflammatory markers trending down, - CRP is down to <0.5 (3) Multiple sclerosis: Code(s): G35 - Multiple sclerosis Status: Acute Assessment and Plan: currently not on any treatment (4) Hypothyroidism: Code(s): E03.9 - Hypothyroidism, unspecified Status: Acute Assessment and Plan: continue levothyroxine (5) Hyperglycemia: Code(s): R73.9 - Hyperglycemia, unspecified Status: Acute Assessment and Plan: sliding scale insulin (6) Sepsis: Code(s): A41.9 - Sepsis, unspecified organism Status: Acute Assessment and Plan: 04/08 patient with elevated WBC count, and will infiltrates on the chest x-ray, started patient on cefepime and vancomycin - cultures have been obtained and pending Additional Plan DVT prophylaxis - continue Lovenox Stress ulcer prophylaxis - PPI Nutrition - continue tube feeding Code Status - full code . discussed with patient's Yonas, and updated with patient's condition and plan of care. I answered all question. is a very pleasant gentleman on his appreciative of my call Total Critical Care Time - 32 minutes Due to a high probability of clinically significant, life threatening deterioration, the patient required my highest level of preparedness to intervene emergently and I personally spent this critical care time directly and personally managing the patient. This critical care time included obtaining a history; examining the patient; pulse oximetry; ordering and review of studies; arranging urgent treatment with development of a management plan; evaluation of patient's response to treatment; frequent reassessment; and discussions with other providers. It was exclusive of separately billable procedures and treating other patients and teaching time. Please see Assessment and Plan section and the rest of the note for further information on patient assessment and treatment Subjective Date/time seen: 04/10/21 13:07 Interval history: Reason for consult: Respiratory failure due to Covid-19 04/10/2021: Patient remains intubated mechanical ventilation, peep of 10, 50% FiO2. Patient is in prone position. No issues overnight. - Urine output has been adequate, patient is hemodynamically, afebrile. White count improving, inflammatory markers trending down
[2021-04-10 13:45] LABS: Glucose Point of Care 165 mg/dl (65-105)
--- NOTE | 2021-04-10 15:36 | PM.IMPN ---
Progress Note: A&P Assessment and Plan (1) Acute respiratory failure with hypoxia: Code(s): J96.01 - Acute respiratory failure with hypoxia Status: Acute Assessment and Plan: Acute Respiratory failure secondary to COVID-19 pneumonia Aadmitted 03/28 BiPAP Intubated 04/05 patient was placed in prone position overnight and will continue daily proning for 18 hours 04/09: no major change was seen on the chest x-ray, although patient was hypercapnic with pH of 7.19 and pCO2 of 71, ventilator was adjusted, patient was also hypoxic overnight and her FiO2 was increased to 80%, - currently on FiO2 of 45% and peep of 10. ABGs and chest x-ray better -continue sedation with Versed and fentanyl infusions and chemical paralysis with neuromuscular ade for now Bronchodilators Chest CTA was negative for PE and lower extremity Dopplers were negative for DVT 04/10 patient remains on ventilator currently prone position, today's ABG showed hypercapnic with a pCO2 70 pH of 7.19, vent is adjusted by elevator tender and appreciate will continue to monitor (2) Pneumonia due to COVID-19 virus: Code(s): U07.1 - COVID-19; J12.82 - Pneumonia due to coronavirus disease 2019 Status: Acute Assessment and Plan: Although patient did get Rajan Rajan vaccine for COVID-19 she was tested positive for COVID-19 PCR. Her clinical picture and radiology findings are all suggestive of COVID 19 pneumonia Continue dexamethasone (started 03/28). She has completed 5 day course of Remdesivir Patient received 1 dose of convalscent plasma In light of rapid deterioration and high CRP, patient was administered Tocilizumab 04/01. QuantiFERON gold test was ordered is indeterminate she has completed 5 day course of Rocephin and azithromycin - inflammatory markers trending down, - CRP is down to <0.5 (3) Multiple sclerosis: Code(s): G35 - Multiple sclerosis Status: Acute Assessment and Plan: currently not on any treatment (4) Hypothyroidism: Code(s): E03.9 - Hypothyroidism, unspecified Status: Acute Assessment and Plan: continue levothyroxine (5) Hyperglycemia: Code(s): R73.9 - Hyperglycemia, unspecified Status: Acute Assessment and Plan: sliding scale insulin (6) Sepsis: Code(s): A41.9 - Sepsis, unspecified organism Status: Acute Assessment and Plan: 04/08 patient with elevated WBC count, and will infiltrates on the chest x-ray, started patient on cefepime and vancomycin - cultures have been obtained and pending Additional Plan DVT prophylaxis - continue Lovenox Stress ulcer prophylaxis - PPI Nutrition - continue tube feeding Code Status - full code . discussed with patient's Yonas, and updated with patient's condition and plan of care. I answered all question. is a very pleasant gentleman on his appreciative of my call Total Critical Care Time - 32 minutes Due to a high probability of clinically significant, life threatening deterioration, the patient required my highest level of preparedness to intervene emergently and I personally spent this critical care time directly and personally managing the patient. This critical care time included obtaining a history; examining the patient; pulse oximetry; ordering and review of studies; arranging urgent treatment with development of a management plan; evaluation of patient's response to treatment; frequent reassessment; and discussions with other providers. It was exclusive of separately billable procedures and treating other patients and teaching time. Please see Assessment and Plan section and the rest of the note for further information on patient assessment and treatment Subjective Date/time seen: 04/10/21 15:37 03/29patient is 65-year-old female with history of MS patient initially seen in emergency depart on Tuesday was diagnosed with pneumonia at that
[2021-04-10 17:35] LABS: Glucose Point of Care 145 mg/dl (65-105)
--- NOTE | 2021-04-10 19:50 | PC.NURSE ---
Patient returned to supine position at 1900 without complication. Patient tolerated well, no distress noted at this time.
[2021-04-10] MEDS: CISATRACURIUM BESYLATE 200 MG in DEXTROSE 5% 80 ML 17.16 ML IV CONT (20:52)
[2021-04-10 21:31] LABS: Glucose Point of Care 160 mg/dl (65-105)
[2021-04-11] VITALS (44 sets, daily range): BP systolic 95–125; BP diastolic 60–70; PULSE 74–107; RESP 24–28; TEMP 36.6–37.3; O2SAT 96–98
[2021-04-11] MEDS: INSULIN ASPART (*BKC) 100 UNITS/ML SUB-Q (00:11)
[2021-04-11 00:17] LABS: Glucose Point of Care 231 mg/dl (65-105)
[2021-04-11] MEDS: CISATRACURIUM BESYLATE 200 MG in DEXTROSE 5% 80 ML 15.6 ML IV CONT (02:23)
[2021-04-11] MEDS: FENTANYL 2,500MCG/NS250ML(*CRX 2,500 MCG/250 ML BAG 20 MCG IV CONT ×2 (04:05→16:25)
[2021-04-11 04:53] LABS: Hematocrit 35.7 % (37.0-47.0); Mean Corpuscular HGB Conc 33.6 g/dl (32-36); Mean Corpuscular Hemoglobin 30.2 pg (26-34); Mean Corpuscular Volume 89.9 fl (80-100); Mean Platelet Volume 11.1 fl (7.4-10.4); Platelet Count Result 154 k/mm3 (150-375); Red Blood Count 3.97 M/mm3 (4.2-5.4); Red Cell Distribution Width 13.3 % (11.5-14.5); White Blood Count 6.2 K/mm3 (4.5-10.0)
[2021-04-11 05:16] LABS: Alanine Aminotransferase 39 U/L (4-35); Albumin Level 2.8 g/dL (3.5-5.1); Alkaline Phosphatase 80 U/L (38-126); Anion Gap 6 mmol/L (8-16); Aspartate Amino Transferase 60 U/L (14-36); Bilirubin,Total 0.7 mg/dL (0.2-1.3); Blood Urea Nitrogen 15 mg/dL (7-17); Calcium 8.3 mg/dL (8.4-10.2); Carbon Dioxide 27 mmol/L (22-30); Chloride 97 mmol/L (98-107); Estimated CRCL calculation 87 ml/min; Estimated Glomerular Filt Rate > 60; Glucose 184 mg/dL (65-110); Magnesium 1.9 mg/dL (1.6-2.3); Phosphorus 2.9 mg/dL (2.5-4.5); Potassium 3.8 mmol/L (3.4-5.0); Sodium 130 mmol/L (137-145)
[2021-04-11 06:24] LABS: Alveolar/Arterial O2 Gradient 193.6 mmHg; Base Excess ABG 1.4 mEq/l (+/-2.0); Carboxyhemoglobin 0.3 % THb (0-2.0); Fractional Inspired Oxygen 45 %; Methemoglobin ABG 0.4 %THb (0-1.5); Oxygen Content ABG 18.3 %vol (16.0-22.0); Oxyhemoglobin 94.5 % THb (90.0-100.0); PCO2 ABG 36.3 mmHg (35.0-45.0); PO2 FiO2 Ratio Arterial Blood 1.91 %; Reduced Hemoglobin 4.8 %THb (0-5.0); Total Hemoglobin 13.7 g/dL (12.0-18.0); pH ABG 7.456 (7.350-7.450)
[2021-04-11 06:25] LABS: Device VENTILATOR; Modified Allen's Test Pass; Site Drawn RIGHT RADIAL
[2021-04-11 06:26] LABS: Arterial Blood Gas PEEP 10 cmH2O; Arterial Blood Gas Tidal Volume 450 ml; Arterial Blood Gas Vent Mode CMV; Arterial Blood Gas Ventilator rate 28 /MIN
[2021-04-11] MEDS: CENTRAL LINE FLUSH 10 ML IV PUSH ×2 (06:34→12:13)
[2021-04-11] MEDS: METOCLOPRAMIDE HCL 10 MG/10 ML SOLN UDC PO ×3 (06:34→16:22)
[2021-04-11] MEDS: LEVOTHYROXINE SODIUM 150 MCG TABLET PO (06:35)
[2021-04-11] MEDS: ATORVASTATIN 20 MG TABLET PO (08:58)
[2021-04-11] MEDS: polyethylene glycoL 3350 17 GM POWD.PACK PO (08:58)
[2021-04-11] MEDS: ENOXAPARIN 40 MG/0.4 ML SYRINGE SUB-Q ×2 (08:58→20:17)
[2021-04-11] MEDS: MINERAL OIL/WHITE PETROLATUM OINTMENT 1 APPLIC EACH EYE ×2 (08:59→20:18)
[2021-04-11] MEDS: PANTOPRAZOLE SODIUM IV 40 MG VIAL IV PUSH (08:59)
[2021-04-11] MEDS: TOLNAFTATE 1% POWDER 45 GM BTL 1 APPLIC TOPICAL ×2 (08:59→20:18)
--- NOTE | 2021-04-11 09:36 | WPDINTPN ---
Progress Note: A&P Assessment and Plan (1) Acute respiratory failure with hypoxia: Code(s): J96.01 - Acute respiratory failure with hypoxia Status: Acute Assessment and Plan: Acute Respiratory failure secondary to COVID-19 pneumonia Aadmitted 03/28 BiPAP Intubated 04/05 patient was placed in prone position overnight and will continue daily proning for 18 hours - currently on FiO2 of 45% and peep of 10. ABGs and chest x-ray Reviewed -continue sedation with Versed and fentanyl infusions - will start weaning Nimbex Bronchodilators Chest CTA was negative for PE and lower extremity Dopplers were negative for DVT (2) Pneumonia due to COVID-19 virus: Code(s): U07.1 - COVID-19; J12.82 - Pneumonia due to coronavirus disease 2018 Status: Acute Assessment and Plan: Although patient did get Rajan Rajan vaccine for COVID-19 she was tested positive for COVID-19 PCR. Her clinical picture and radiology findings are all suggestive of COVID 19 pneumonia Continue dexamethasone (started 03/28). She has completed 5 day course of Remdesivir Patient received 1 dose of convalscent plasma In light of rapid deterioration and high CRP, patient was administered Tocilizumab 04/01. QuantiFERON gold test was ordered is indeterminate she has completed 5 day course of Rocephin and azithromycin - inflammatory markers trending down, - CRP is down to <0.5 (3) Multiple sclerosis: Code(s): G35 - Multiple sclerosis Status: Acute Assessment and Plan: currently not on any treatment (4) Hypothyroidism: Code(s): E03.9 - Hypothyroidism, unspecified Status: Acute Assessment and Plan: continue levothyroxine (5) Hyperglycemia: Code(s): R73.9 - Hyperglycemia, unspecified Status: Acute Assessment and Plan: sliding scale insulin (6) Sepsis: Code(s): A41.9 - Sepsis, unspecified organism Status: Acute Assessment and Plan: 04/08 patient with elevated WBC count, and will infiltrates on the chest x-ray, started patient on cefepime and vancomycin 04/10: Sputum cultures growing -04/09: urine culture: no growth -04/09: blood cultures Gram-positive cocci in clusters 1/2 bottles - cefepime and vancomycin ( initiated on 04/09/2021) Additional Plan DVT prophylaxis - continue Lovenox Stress ulcer prophylaxis - PPI Nutrition - continue tube feeding Code Status - full code . discussed with patient's Yonas, and updated with patient's condition and plan of care. I answered all question. Total Critical Care Time - 32 minutes Due to a high probability of clinically significant, life threatening deterioration, the patient required my highest level of preparedness to intervene emergently and I personally spent this critical care time directly and personally managing the patient. This critical care time included obtaining a history; examining the patient; pulse oximetry; ordering and review of studies; arranging urgent treatment with development of a management plan; evaluation of patient's response to treatment; frequent reassessment; and discussions with other providers. It was exclusive of separately billable procedures and treating other patients and teaching time. Please see Assessment and Plan section and the rest of the note for further information on patient assessment and treatment Subjective Date/time seen: 04/11/21 09:36 Interval history: Reason for consult: Respiratory failure due to Covid-19 04/11/2021: Patient remains intubated on peep of 10, 45% FiO2. Patient is in supine position at this time. No issues overnight, adequate urine output, afebrile, hemodynamically stable. Patient on fentanyl, Versed and Nimbex infusion. Tolerating tube feeds Review of Systems Review of Systems: ROS unobtainable: Yes unobtainable due to endotracheal tube and unobtainable due to medical condition Exam Narrative
[2021-04-11 09:40] LABS: Glucose Point of Care 154 mg/dl (65-105)
--- NOTE | 2021-04-11 10:10 | PC.NURSE ---
Patient noted to have 9 beats of vtach at 0854, Dr. Delgado notified. No additional orders at this time, will continue to monitor closely.
[2021-04-11] MEDS: CISATRACURIUM BESYLATE 200 MG in DEXTROSE 5% 80 ML IV CONT (11:09)
[2021-04-11 12:54] LABS: Glucose Point of Care 160 mg/dl (65-105)
--- NOTE | 2021-04-11 13:32 | PM.IMPN ---
Progress Note: A&P Assessment and Plan (1) Acute respiratory failure with hypoxia: Code(s): J96.01 - Acute respiratory failure with hypoxia Status: Acute Assessment and Plan: Acute Respiratory failure secondary to COVID-19 pneumonia Aadmitted 03/28 BiPAP Intubated 04/05 patient was placed in prone position overnight and will continue daily proning for 18 hours 04/09: no major change was seen on the chest x-ray, although patient was hypercapnic with pH of 7.19 and pCO2 of 71, ventilator was adjusted, patient was also hypoxic overnight and her FiO2 was increased to 80%, - currently on FiO2 of 45% and peep of 10. ABGs and chest x-ray better -continue sedation with Versed and fentanyl infusions and chemical paralysis with neuromuscular ade for now Bronchodilators Chest CTA was negative for PE and lower extremity Dopplers were negative for DVT 04/11/21 13:32 04/10 patient remains on ventilator currently prone position, today's ABG showed hypercapnic with a pCO2 70 pH of 7.19, vent is adjusted by picker and packer and appreciate will continue to monitor. 04/11 today patient is in supine position sedated with fentanyl, versed and Nimbex remains intubated seen by intensive and appreciate. (2) Pneumonia due to COVID-19 virus: Code(s): U07.1 - COVID-19; J12.82 - Pneumonia due to coronavirus disease 2018 Status: Acute Assessment and Plan: Although patient did get Rajan Rajan vaccine for COVID-19 she was tested positive for COVID-19 PCR. Her clinical picture and radiology findings are all suggestive of COVID 19 pneumonia Continue dexamethasone (started 03/28). She has completed 5 day course of Remdesivir Patient received 1 dose of convalscent plasma In light of rapid deterioration and high CRP, patient was administered Tocilizumab 04/01. QuantiFERON gold test was ordered is indeterminate she has completed 5 day course of Rocephin and azithromycin - inflammatory markers trending down, - CRP is down to <0.5 (3) Multiple sclerosis: Code(s): G35 - Multiple sclerosis Status: Acute Assessment and Plan: currently not on any treatment (4) Hypothyroidism: Code(s): E03.9 - Hypothyroidism, unspecified Status: Acute Assessment and Plan: continue levothyroxine (5) Hyperglycemia: Code(s): R73.9 - Hyperglycemia, unspecified Status: Acute Assessment and Plan: sliding scale insulin (6) Sepsis: Code(s): A41.9 - Sepsis, unspecified organism Status: Acute Assessment and Plan: patient with elevated WBC count, and will infiltrates on the chest x-ray, started patient on cefepime and vancomycin - cultures have been obtained and pending 04/11 1 bottle is growing coagulase-negative staphylococci sensitivity is pending. Subjective Date/time seen: 04/11/21 13:32 04/10 patient remains on ventilator currently prone position, today's ABG showed hypercapnic with a pCO2 70 pH of 7.19, vent is adjusted by picker and packer and appreciate will continue to monitor. 04/11 today patient is in supine position sedated with fentanyl, versed and Nimbex remains intubated seen by intensive and savannah. Review of Systems Review of Systems: ROS unobtainable: Yes unobtainable due to endotracheal tube Exam Narrative: Exam Narrative: Exam Narrative: supine position Patient is comfortable, NAD HEENT: ET tube in place LUNGS: normal respiratory efforts on ventilator ABD: moderately obese Lower extremities: no edema SKIN: nonjaundiced Neuro: on vent and sedated. Objective Data Vital Signs Vital Signs: Vital Signs - 24 hr 04/10/21 14:00 04/10/21 14:57 04/10/21 15:35 Temperature 98.5 F Pulse Rate 109 H 96 93 Respiratory Rate 28 H 28 H Blood Pressure 123/73 Pulse Oximetry 97 97 04/10/21 15:49 04/10/21 16:00 04/10/21 16:02 Temperature 98.1 F Pulse Rate 93 97 96 Respiratory Rate 28 H 28 H 28 H Blood Pressure 1
[2021-04-11] MEDS: MIDAZOLAM 100MG/NS 100ML(*CRX) 100 MG/100 ML BAG 6 MG IV CONT (16:20)
[2021-04-11 17:46] LABS: Glucose Point of Care 148 mg/dl (65-105)
[2021-04-11 20:27] LABS: Glucose Point of Care 162 mg/dl (65-105)
[2021-04-12] VITALS (38 sets, daily range): BP systolic 102–128; BP diastolic 56–77; PULSE 83–108; RESP 24–28; TEMP 36.2–37.2; O2SAT 92–97
[2021-04-12] MEDS: CENTRAL LINE FLUSH 10 ML IV PUSH ×4 (00:04→20:25)
[2021-04-12] MEDS: METOCLOPRAMIDE HCL 10 MG/10 ML SOLN UDC PO ×4 (00:04→17:30)
[2021-04-12 00:14] LABS: Glucose Point of Care 183 mg/dl (65-105)
[2021-04-12] MEDS: MIDAZOLAM 100MG/NS 100ML(*CRX) 100 MG/100 ML BAG 6 MG IV CONT (03:46)
[2021-04-12] MEDS: FENTANYL 2,500MCG/NS250ML(*CRX 2,500 MCG/250 ML BAG 20 MCG IV CONT (03:48)
[2021-04-12 04:23] LABS: Alveolar/Arterial O2 Gradient 301.4 mmHg; Base Excess ABG 0.8 mEq/l (+/-2.0); Carboxyhemoglobin 0.3 % THb (0-2.0); Fractional Inspired Oxygen 60 %; HCO3 ABG 24.4 mEq/l (22.0-26.0); Methemoglobin ABG 0.4 %THb (0-1.5); Oxygen Content ABG 17.2 %vol (16.0-22.0); Oxyhemoglobin 95.4 % THb (90.0-100.0); PCO2 ABG 35.7 mmHg (35.0-45.0); PO2 ABG 87.1 mmHg (80.0-100.0); PO2 FiO2 Ratio Arterial Blood 1.45 %; Reduced Hemoglobin 3.9 %THb (0-5.0); Total Hemoglobin 12.8 g/dL (12.0-18.0); pH ABG 7.452 (7.350-7.450)
[2021-04-12 04:26] LABS: Device VENTILATOR; Modified Allen's Test Pass; Site Drawn LEFT RADIAL
[2021-04-12 04:27] LABS: Arterial Blood Gas PEEP 10 cmH2O; Arterial Blood Gas Tidal Volume 360 ml; Arterial Blood Gas Vent Mode CMV; Arterial Blood Gas Ventilator rate 28 /MIN
[2021-04-12] MEDS: LEVOTHYROXINE SODIUM 150 MCG TABLET PO (05:29)
[2021-04-12 05:56] LABS: Hematocrit 35.1 % (37.0-47.0); Hemoglobin 11.6 g/dL (12.0-15.0); Mean Corpuscular Volume 90.7 fl (80-100); Mean Platelet Volume 11.5 fl (7.4-10.4); Platelet Count Result 142 k/mm3 (150-375); Red Blood Count 3.87 M/mm3 (4.2-5.4); Red Cell Distribution Width 13.7 % (11.5-14.5); White Blood Count 4.6 K/mm3 (4.5-10.0)
[2021-04-12 06:09] LABS: Alanine Aminotransferase 38 U/L (4-35); Albumin Level 2.9 g/dL (3.5-5.1); Alkaline Phosphatase 85 U/L (38-126); Anion Gap 2 mmol/L (8-16); Aspartate Amino Transferase 55 U/L (14-36); Bilirubin,Total 0.7 mg/dL (0.2-1.3); Blood Urea Nitrogen 17 mg/dL (7-17); Calcium 8.5 mg/dL (8.4-10.2); Carbon Dioxide 28 mmol/L (22-30); Chloride 102 mmol/L (98-107); Estimated CRCL calculation 101 ml/min; Estimated Glomerular Filt Rate > 60; Glucose 120 mg/dL (65-110); Phosphorus 2.8 mg/dL (2.5-4.5); Sodium 132 mmol/L (137-145)
[2021-04-12] MEDS: FUROSEMIDE INJ 40 MG/4 ML VIAL IV PUSH (08:46)
[2021-04-12] MEDS: ENOXAPARIN 40 MG/0.4 ML SYRINGE SUB-Q ×2 (08:48→20:25)
[2021-04-12] MEDS: MINERAL OIL/WHITE PETROLATUM OINTMENT 1 APPLIC EACH EYE ×2 (08:48→20:25)
[2021-04-12] MEDS: polyethylene glycoL 3350 17 GM POWD.PACK PO (08:48)
[2021-04-12] MEDS: ATORVASTATIN 20 MG TABLET PO (08:48)
[2021-04-12] MEDS: PANTOPRAZOLE SODIUM IV 40 MG VIAL IV PUSH (08:48)
[2021-04-12] MEDS: TOLNAFTATE 1% POWDER 45 GM BTL 1 APPLIC TOPICAL ×2 (08:49→20:25)
[2021-04-12 09:26] LABS: Glucose Point of Care 140 mg/dl (65-105)
--- NOTE | 2021-04-12 13:05 | PM.IMPN ---
Progress Note: A&P Assessment and Plan (1) Acute respiratory failure with hypoxia: Code(s): J96.01 - Acute respiratory failure with hypoxia Status: Acute Assessment and Plan: Acute Respiratory failure secondary to COVID-19 pneumonia Aadmitted 03/28 BiPAP Intubated 04/05 patient was placed in prone position overnight and will continue daily proning for 18 hours 04/09: no major change was seen on the chest x-ray, although patient was hypercapnic with pH of 7.19 and pCO2 of 71, ventilator was adjusted, patient was also hypoxic overnight and her FiO2 was increased to 80%, - currently on FiO2 of 45% and peep of 10. ABGs and chest x-ray better -continue sedation with Versed and fentanyl infusions and chemical paralysis with neuromuscular ade for now Bronchodilators Chest CTA was negative for PE and lower extremity Dopplers were negative for DVT 04/12/21 13:05 Chest CTA was negative for PE and lower extremity Dopplers were negative for DVT 04/11/21 13:32 04/10 patient remains on ventilator currently prone position, today's ABG showed hypercapnic with a pCO2 70 pH of 7.19, vent is adjusted by enamel shader and appreciate will continue to monitor. 04/11 today patient is in supine position sedated with fentanyl, versed and Nimbex remains intubated seen by intensive and appreciate. 04/12 today patient is in supine position sedated with fentanyl, versed and Nimbex remains intubated, enamel shader patient being diuresed may help with ventilation will continue to monitor appreciate enamel shader (2) Pneumonia due to COVID-19 virus: Code(s): U07.1 - COVID-19; J12.82 - Pneumonia due to coronavirus disease 2019 Status: Acute Assessment and Plan: Although patient did get Rajan Rajan vaccine for COVID-19 she was tested positive for COVID-19 PCR. Her clinical picture and radiology findings are all suggestive of COVID 19 pneumonia Continue dexamethasone (started 03/28). She has completed 5 day course of Remdesivir Patient received 1 dose of convalscent plasma In light of rapid deterioration and high CRP, patient was administered Tocilizumab 04/01. QuantiFERON gold test was ordered is indeterminate she has completed 5 day course of Rocephin and azithromycin - inflammatory markers trending down, - CRP is down to <0.5 (3) Multiple sclerosis: Code(s): G35 - Multiple sclerosis Status: Acute Assessment and Plan: currently not on any treatment (4) Hypothyroidism: Code(s): E03.9 - Hypothyroidism, unspecified Status: Acute Assessment and Plan: continue levothyroxine (5) Hyperglycemia: Code(s): R73.9 - Hyperglycemia, unspecified Status: Acute Assessment and Plan: sliding scale insulin (6) Sepsis: Code(s): A41.9 - Sepsis, unspecified organism Status: Acute Assessment and Plan: patient with elevated WBC count, and will infiltrates on the chest x-ray, started patient on cefepime and vancomycin - cultures have been obtained and pending 04/11 1 bottle is growing coagulase-negative staphylococci sensitivity is pending. Additional Plan DVT prophylaxis - continue Lovenox Stress ulcer prophylaxis - PPI Nutrition - continue tube feeding Code Status - full code . discussed with patient's Yonas, and updated with patient's condition and plan of care. I answered all question. Total Critical Care Time - 32 minutes Due to a high probability of clinically significant, life threatening deterioration, the patient required my highest level of preparedness to intervene emergently and I personally spent this critical care time directly and personally managing the patient. This critical care time included obtaining a history; examining the patient; pulse oximetry; ordering and review of studies; arranging urgent treatment with development of a management plan; evaluation of patient's response to treatment; frequent
[2021-04-12 15:11] LABS: Glucose Point of Care 149 mg/dl (65-105)
--- NOTE | 2021-04-12 15:19 | WPDINTPN ---
Progress Note: A&P Assessment and Plan (1) Acute respiratory failure with hypoxia: Code(s): J96.01 - Acute respiratory failure with hypoxia Status: Acute Assessment and Plan: Acute Respiratory failure secondary to COVID-19 pneumonia Aadmitted 03/28 BiPAP Intubated 04/05 patient was placed in prone position overnight and will continue daily proning for 18 hours - currently on FiO2 of 45% and peep of 10. ABGs and chest x-ray reviewed, decrease FiO2 to 40% - start weaning fentanyl Versed infusion, try to wake up patient - OFF Nimbex Bronchodilators Chest CTA was negative for PE and lower extremity Dopplers were negative for DVT will diurese today (2) Pneumonia due to COVID-19 virus: Code(s): U07.1 - COVID-19; J12.82 - Pneumonia due to coronavirus disease 2018 Status: Acute Assessment and Plan: Although patient did get Rajan Rajan vaccine for COVID-19 she was tested positive for COVID-19 PCR. Her clinical picture and radiology findings are all suggestive of COVID 19 pneumonia Continue dexamethasone (started 03/28). She has completed 5 day course of Remdesivir Patient received 1 dose of convalscent plasma In light of rapid deterioration and high CRP, patient was administered Tocilizumab 04/01. QuantiFERON gold test was ordered is indeterminate she has completed 5 day course of Rocephin and azithromycin - inflammatory markers trending down, - CRP is down to <0.5 (3) Multiple sclerosis: Code(s): G35 - Multiple sclerosis Status: Acute Assessment and Plan: currently not on any treatment (4) Hypothyroidism: Code(s): E03.9 - Hypothyroidism, unspecified Status: Acute Assessment and Plan: continue levothyroxine (5) Hyperglycemia: Code(s): R73.9 - Hyperglycemia, unspecified Status: Acute Assessment and Plan: sliding scale insulin (6) Sepsis: Code(s): A41.9 - Sepsis, unspecified organism Status: Acute Assessment and Plan: 04/08 patient with elevated WBC count, and will infiltrates on the chest x-ray, started patient on cefepime and vancomycin 04/10: Sputum cultures growing -04/09: urine culture: no growth -04/09: blood cultures Coag-negative staph 1/2 bottles. discontinue vancomycin - Continue cefepime which was initiated on 04/09/2021 Additional Plan DVT prophylaxis - continue Lovenox Stress ulcer prophylaxis - PPI Nutrition - continue tube feeding Code Status - full code . discussed with patient's Yonas, and updated with patient's condition and plan of care. I answered all question. Total Critical Care Time - 32 minutes Due to a high probability of clinically significant, life threatening deterioration, the patient required my highest level of preparedness to intervene emergently and I personally spent this critical care time directly and personally managing the patient. This critical care time included obtaining a history; examining the patient; pulse oximetry; ordering and review of studies; arranging urgent treatment with development of a management plan; evaluation of patient's response to treatment; frequent reassessment; and discussions with other providers. It was exclusive of separately billable procedures and treating other patients and teaching time. Please see Assessment and Plan section and the rest of the note for further information on patient assessment and treatment Subjective Date/time seen: 04/12/21 15:19 Interval history: Reason for consult: Respiratory failure due to Covid-19 04/12/2021: Patient remains intubated on mechanical ventilation, peep of 5, 45% FiO2. He is on fentanyl 200 mcg/hr and Versed 6 mg/hr infusions for sedation. Patient is off Nimbex. Tolerating tube feeds, adequate urine output, hemodynamically stable, afebrile. patient does not open her eyes or follows any commands Review of Systems Review of Systems: SILVER
[2021-04-12 17:29] LABS: Glucose Point of Care 148 mg/dl (65-105)
[2021-04-12] MEDS: FENTANYL 2,500MCG/NS250ML(*CRX 2,500 MCG/250 ML BAG 12.5 MCG IV CONT (18:02)
[2021-04-12 20:35] LABS: Glucose Point of Care 146 mg/dl (65-105)
[2021-04-13] VITALS (35 sets, daily range): BP systolic 116–169; BP diastolic 61–85; PULSE 87–120; RESP 28; TEMP 37.1–37.5; O2SAT 91–97
[2021-04-13] MEDS: METOCLOPRAMIDE HCL 10 MG/10 ML SOLN UDC PO ×4 (00:01→17:52)
[2021-04-13 00:53] LABS: Glucose Point of Care 153 mg/dl (65-105)
[2021-04-13 04:31] LABS: Alveolar/Arterial O2 Gradient 166.6 mmHg; Base Excess ABG 6.1 mEq/l (+/-2.0); Fractional Inspired Oxygen 40 %; HCO3 ABG 30.9 mEq/l (22.0-26.0); Oxygen Saturation ABG 94.1 % (95.0-100.0); Oxyhemoglobin 92.1 % THb (90.0-100.0); PCO2 ABG 44.8 mmHg (35.0-45.0); PO2 ABG 67.1 mmHg (80.0-100.0); PO2 FiO2 Ratio Arterial Blood 1.68 %; Total Hemoglobin 13.9 g/dL (12.0-18.0); pH ABG 7.456 (7.350-7.450)
[2021-04-13 04:32] LABS: Device VENTILATOR; Modified Allen's Test Pass; Site Drawn RIGHT RADIAL
[2021-04-13 04:33] LABS: Arterial Blood Gas PEEP 10 cmH2O; Arterial Blood Gas Tidal Volume 360 ml; Arterial Blood Gas Vent Mode CMV; Arterial Blood Gas Ventilator rate 28 /MIN
[2021-04-13] MEDS: CENTRAL LINE FLUSH 10 ML IV PUSH ×3 (05:12→20:01)
[2021-04-13 05:40] LABS: Hematocrit 36.3 % (37.0-47.0); Mean Corpuscular HGB Conc 33.1 g/dl (32-36); Mean Corpuscular Hemoglobin 29.9 pg (26-34); Mean Corpuscular Volume 90.3 fl (80-100); Mean Platelet Volume 11.7 fl (7.4-10.4); Platelet Count Result 146 k/mm3 (150-375); Red Blood Count 4.02 M/mm3 (4.2-5.4); Red Cell Distribution Width 13.9 % (11.5-14.5); White Blood Count 6.7 K/mm3 (4.5-10.0)
[2021-04-13 06:00] LABS: Alanine Aminotransferase 43 U/L (4-35); Albumin Level 3.1 g/dL (3.5-5.1); Alkaline Phosphatase 96 U/L (38-126); Anion Gap 3 mmol/L (8-16); Aspartate Amino Transferase 54 U/L (14-36); Bilirubin,Total 0.8 mg/dL (0.2-1.3); Blood Urea Nitrogen 18 mg/dL (7-17); Calcium 8.7 mg/dL (8.4-10.2); Carbon Dioxide 31 mmol/L (22-30); Chloride 99 mmol/L (98-107); Estimated CRCL calculation 88 ml/min; Estimated Glomerular Filt Rate > 60; Glucose 149 mg/dL (65-110); Potassium 3.7 mmol/L (3.4-5.0); Sodium 133 mmol/L (137-145)
[2021-04-13 06:09] LABS: Glucose Point of Care 151 mg/dl (65-105)
[2021-04-13] MEDS: LEVOTHYROXINE SODIUM 150 MCG TABLET PO (06:30)
[2021-04-13] MEDS: polyethylene glycoL 3350 17 GM POWD.PACK PO (08:02)
[2021-04-13] MEDS: PANTOPRAZOLE SODIUM IV 40 MG VIAL IV PUSH (08:02)
[2021-04-13] MEDS: ENOXAPARIN 40 MG/0.4 ML SYRINGE SUB-Q ×2 (08:02→20:00)
[2021-04-13] MEDS: ATORVASTATIN 20 MG TABLET PO (08:03)
[2021-04-13] MEDS: TOLNAFTATE 1% POWDER 45 GM BTL 1 APPLIC TOPICAL ×2 (08:03→19:50)
[2021-04-13] MEDS: MINERAL OIL/WHITE PETROLATUM OINTMENT 1 APPLIC EACH EYE ×2 (08:03→19:50)
[2021-04-13] MEDS: METOPROLOL TARTRATE 25 MG TABLET PO ×2 (09:13→20:01)
[2021-04-13 09:23] LABS: Glucose Point of Care 155 mg/dl (65-105)
--- NOTE | 2021-04-13 11:36 | WPDINTPN ---
Progress Note: A&P Assessment and Plan (1) Acute respiratory failure with hypoxia: Code(s): J96.01 - Acute respiratory failure with hypoxia Status: Acute Assessment and Plan: Acute Respiratory failure secondary to COVID-19 pneumonia Aadmitted 03/28 BiPAP Intubated 04/05 patient was placed in prone position overnight and will continue daily proning for 18 hours - currently on FiO2 of 40% and peep of 10. ABGs and chest x-ray reviewed, - off Nimbex and Versed infusion - weaning fentanyl Bronchodilators Chest CTA was negative for PE and lower extremity Dopplers were negative for DVT patient diuresed well yesterday, will repeat diuresis today (2) Pneumonia due to COVID-19 virus: Code(s): U07.1 - COVID-19; J12.82 - Pneumonia due to coronavirus disease 2018 Status: Acute Assessment and Plan: Although patient did get Rajan Rajan vaccine for COVID-19 she was tested positive for COVID-19 PCR. Her clinical picture and radiology findings are all suggestive of COVID 19 pneumonia Continue dexamethasone (started 03/28). She has completed 5 day course of Remdesivir Patient received 1 dose of convalscent plasma In light of rapid deterioration and high CRP, patient was administered Tocilizumab 04/01. QuantiFERON gold test was ordered is indeterminate she has completed 5 day course of Rocephin and azithromycin - inflammatory markers trending down, - CRP is down to <0.5 (3) Multiple sclerosis: Code(s): G35 - Multiple sclerosis Status: Acute Assessment and Plan: currently not on any treatment (4) Hypothyroidism: Code(s): E03.9 - Hypothyroidism, unspecified Status: Acute Assessment and Plan: continue levothyroxine (5) Hyperglycemia: Code(s): R73.9 - Hyperglycemia, unspecified Status: Acute Assessment and Plan: sliding scale insulin (6) Sepsis: Code(s): A41.9 - Sepsis, unspecified organism Status: Acute Assessment and Plan: 04/08 patient with elevated WBC count, and will infiltrates on the chest x-ray, started patient on cefepime and vancomycin 04/10: Sputum cultures growing -04/09: urine culture: no growth -04/09: blood cultures Coag-negative staph 1/2 bottles. discontinue vancomycin - Continue cefepime which was initiated on 04/09/2021 Additional Plan DVT prophylaxis - continue Lovenox Stress ulcer prophylaxis - PPI Nutrition - continue tube feeding Code Status - full code . 04/13: discussed with patient's Yonas, and updated with patient's condition and plan of care. The stated that patient does not come out of sedation very well as she had a surgery in the past and took a day and a half to 2 days to come out of sedation. Total Critical Care Time - 36 minutes Due to a high probability of clinically significant, life threatening deterioration, the patient required my highest level of preparedness to intervene emergently and I personally spent this critical care time directly and personally managing the patient. This critical care time included obtaining a history; examining the patient; pulse oximetry; ordering and review of studies; arranging urgent treatment with development of a management plan; evaluation of patient's response to treatment; frequent reassessment; and discussions with other providers. It was exclusive of separately billable procedures and treating other patients and teaching time. Please see Assessment and Plan section and the rest of the note for further information on patient assessment and treatment Subjective Date/time seen: 04/13/21 11:36 Interval history: Reason for consult: Respiratory failure due to Covid-19 04/13/2021: Patient remains intubated, mechanical ventilation, 40% FiO2 and a PEEP of 10. Patient is off Nimbex, off Versed, fentanyl 25 mcg/hr infusion. Patient opens her eyes, does not track or follow simple commands. does not
--- NOTE | 2021-04-13 12:29 | PCDIET ---
ICU Rounding Note: Patient tolerating Glucerna 1.2 at 50mL/hr with 30mL water flush every 4 hours. Last recorded weight is 109.5kg which is increased from last review. Bowel Motility: Last documented BM on 04/05/21. adding Dulcolax. Miralax and Reglan continue. Labs Reviewed: RBC (4.02), Hct (36.3), Glu (149), Na (133), Alb (3.1) Meds Noted: Lipitor, Cefepime, Lopressor, Fentanyl, Synthroid, Reglan, Protonix, Miralax, Tolnaftate Additional Notes: Tolnaftate to abdominal folds. No pressure sores documented. Following daily in ICU rounds. Assessing/reassessing every Tuesday/Tuesday.
[2021-04-13] MEDS: FUROSEMIDE INJ 40 MG/4 ML VIAL 20 MG IV PUSH (12:41)
[2021-04-13] MEDS: BISACODYL 10 MG SUPPOSITORY RECTAL (12:42)
[2021-04-13 12:54] LABS: Glucose Point of Care 172 mg/dl (65-105)
--- NOTE | 2021-04-13 16:09 | PM.IMPN ---
Progress Note: A&P Assessment and Plan (1) Acute respiratory failure with hypoxia: Code(s): J96.01 - Acute respiratory failure with hypoxia Status: Acute Assessment and Plan: Acute Respiratory failure secondary to COVID-19 pneumonia Aadmitted 03/28 BiPAP Intubated 04/05 patient was placed in prone position overnight and will continue daily proning for 18 hours - currently on FiO2 of 40% and peep of 10. ABGs and chest x-ray reviewed, - off Nimbex and Versed infusion - weaning fentanyl Bronchodilators Chest CTA was negative for PE and lower extremity Dopplers were negative for DVT patient diuresed well yesterday, will repeat diuresis today 04/13/21 16:09 04/10 patient remains on ventilator currently prone position, today's ABG showed hypercapnic with a pCO2 70 pH of 7.19, vent is adjusted by adhesive bandage making operator and appreciate will continue to monitor. 04/11 today patient is in supine position sedated with fentanyl, versed and Nimbex remains intubated seen by intensive and appreciate. 04/12 today patient is in supine position sedated with fentanyl, versed and Nimbex remains intubated, DW adhesive bandage making operator patient being diuresed may help with ventilation will continue to monitor appreciate adhesive bandage making operator. 04/13 patient remains on ventilator today patient is off Nimbex, and Versed, on fentanyl 25 micrograms/hour infusion, patient remained unresponsive to stimuli, patient seen adhesive bandage making operator and appreciate (2) Pneumonia due to COVID-19 virus: Code(s): U07.1 - COVID-19; J12.82 - Pneumonia due to coronavirus disease 2019 Status: Acute Assessment and Plan: Although patient did get Rajan Rajan vaccine for COVID-19 she was tested positive for COVID-19 PCR. Her clinical picture and radiology findings are all suggestive of COVID 19 pneumonia Continue dexamethasone (started 03/28). She has completed 5 day course of Remdesivir Patient received 1 dose of convalscent plasma In light of rapid deterioration and high CRP, patient was administered Tocilizumab 04/01. QuantiFERON gold test was ordered is indeterminate she has completed 5 day course of Rocephin and azithromycin - inflammatory markers trending down, - CRP is down to <0.5 (3) Multiple sclerosis: Code(s): G35 - Multiple sclerosis Status: Acute Assessment and Plan: currently not on any treatment (4) Hypothyroidism: Code(s): E03.9 - Hypothyroidism, unspecified Status: Acute Assessment and Plan: continue levothyroxine (5) Hyperglycemia: Code(s): R73.9 - Hyperglycemia, unspecified Status: Acute Assessment and Plan: sliding scale insulin (6) Sepsis: Code(s): A41.9 - Sepsis, unspecified organism Status: Acute Assessment and Plan: 04/08 patient with elevated WBC count, and will infiltrates on the chest x-ray, started patient on cefepime and vancomycin 04/10: Sputum cultures growing -04/09: urine culture: no growth -04/09: blood cultures Coag-negative staph 1/2 bottles. discontinue vancomycin - Continue cefepime which was initiated on 04/09/2021 Subjective Date/time seen: 04/13/21 16:09 04/10 patient remains on ventilator currently prone position, today's ABG showed hypercapnic with a pCO2 70 pH of 7.19, vent is adjusted by adhesive bandage making operator and savannah will continue to monitor. 04/11 today patient is in supine position sedated with fentanyl, versed and Nimbex remains intubated seen by intensive and savannah. 04/12 today patient is in supine position sedated with fentanyl, versed and Nimbex remains intubated, DW adhesive bandage making operator patient being diuresed may help with ventilation will continue to monitor appreciate adhesive bandage making operator. 04/13 patient remains on ventilator today patient is off Nimbex, and Versed, on fentanyl 25 micrograms/hour infusion, patient remained unresponsive to stimuli, patient seen adhesive bandage making operator and savannah Review of Systems Review of Systems:
[2021-04-13 16:31] LABS: Glucose Point of Care 197 mg/dl (65-105)
[2021-04-13 20:08] LABS: Glucose Point of Care 182 mg/dl (65-105)
[2021-04-14] VITALS (28 sets, daily range): BP systolic 105–157; BP diastolic 56–85; PULSE 77–110; RESP 20–28; TEMP 37.2–37.6; O2SAT 91–98
[2021-04-14] MEDS: METOCLOPRAMIDE HCL 10 MG/10 ML SOLN UDC PO ×5 (00:11→23:27)
[2021-04-14 00:49] LABS: Glucose Point of Care 180 mg/dl (65-105)
[2021-04-14 04:55] LABS: Glucose Point of Care 185 mg/dl (65-105)
[2021-04-14 05:42] LABS: Alveolar/Arterial O2 Gradient 226.1 mmHg; Base Excess ABG 7.6 mEq/l (+/-2.0); Fractional Inspired Oxygen 40 %; HCO3 ABG 31.2 mEq/l (22.0-26.0); Oxygen Content ABG 18.7 %vol (16.0-22.0); Oxyhemoglobin 94.2 % THb (90.0-100.0); PCO2 ABG 39.9 mmHg (35.0-45.0); PO2 ABG 73.3 mmHg (80.0-100.0); PO2 FiO2 Ratio Arterial Blood 1.83 %; Total Hemoglobin 14.1 g/dL (12.0-18.0)
[2021-04-14 05:42] LABS: Basophils Percent Auto 0.4 % (0.2-1.2); Eosinophils Absolute Auto 0.3 K/mm3 (0-0.3); Eosinophils Percent Auto 2.9 % (0-4.4); Hematocrit 38.7 % (37.0-47.0); Hemoglobin 12.7 g/dL (12.0-15.0); Immature Granulocyte Absolute 0.15 K/mm3 (0.00-0.031); Immature Granulocyte Percent A 1.4 % (0-0.5); Lymphocytes Absolute Auto 1.18 K/mm3 (0.9-3.2); Mean Corpuscular HGB Conc 32.8 g/dl (32-36); Mean Corpuscular Volume 91.5 fl (80-100); Mean Platelet Volume 11.2 fl (7.4-10.4); Monocytes Absolute Auto 1.4 K/mm3 (0.1-0.6); Monocytes Percent Auto 13.1 % (2.6-8.5); Neutrophils Absolute Auto 7.7 K/mm3 (1.3-6.7); Neutrophils Percent Auto 71.2 % (45.5-73.1); Nucleated Red Blood Cells Perc 0.2 % (0.0-0.2); Platelet Count Result 176 k/mm3 (150-375); Red Blood Count 4.23 M/mm3 (4.2-5.4); Red Cell Distribution Width 14.2 % (11.5-14.5); White Blood Count 10.8 K/mm3 (4.5-10.0)
[2021-04-14 05:45] LABS: Site Drawn LEFT RADIAL; pH ABG 7.511 (7.350-7.450)
[2021-04-14 05:46] LABS: Arterial Blood Gas PEEP 10 cmH2O; Arterial Blood Gas Tidal Volume 360 ml; Arterial Blood Gas Vent Mode CMV; Arterial Blood Gas Ventilator rate 28 /MIN; Device VENTILATOR; Modified Allen's Test Pass
[2021-04-14 05:57] LABS: Anion Gap 6 mmol/L (8-16); Blood Urea Nitrogen 19 mg/dL (7-17); Calcium 9.3 mg/dL (8.4-10.2); Carbon Dioxide 34 mmol/L (22-30); Chloride 94 mmol/L (98-107); Estimated CRCL calculation 87 ml/min; Estimated Glomerular Filt Rate > 60; Glucose 167 mg/dL (65-110); Phosphorus 4.1 mg/dL (2.5-4.5); Sodium 134 mmol/L (137-145)
[2021-04-14] MEDS: LEVOTHYROXINE SODIUM 150 MCG TABLET PO (06:07)
[2021-04-14] MEDS: CENTRAL LINE FLUSH 10 ML IV PUSH ×3 (06:07→20:01)
[2021-04-14] MEDS: ENOXAPARIN 40 MG/0.4 ML SYRINGE SUB-Q ×2 (08:13→20:01)
[2021-04-14] MEDS: polyethylene glycoL 3350 17 GM POWD.PACK PO (08:13)
[2021-04-14] MEDS: MINERAL OIL/WHITE PETROLATUM OINTMENT 1 APPLIC EACH EYE ×2 (08:14→20:01)
[2021-04-14] MEDS: METOPROLOL TARTRATE 25 MG TABLET PO ×2 (08:14→20:01)
[2021-04-14] MEDS: ATORVASTATIN 20 MG TABLET PO (08:14)
[2021-04-14] MEDS: PANTOPRAZOLE SODIUM IV 40 MG VIAL IV PUSH (08:15)
[2021-04-14] MEDS: TOLNAFTATE 1% POWDER 45 GM BTL 1 APPLIC TOPICAL ×2 (08:15→20:02)
[2021-04-14 08:52] LABS: Glucose Point of Care 171 mg/dl (65-105)
--- NOTE | 2021-04-14 11:11 | WPDINTPN ---
Progress Note: A&P Assessment and Plan (1) Acute respiratory failure with hypoxia: Code(s): J96.01 - Acute respiratory failure with hypoxia Status: Acute Assessment and Plan: Acute Respiratory failure secondary to COVID-19 pneumonia Aadmitted 03/28 BiPAP Intubated 04/05. patient was placed in prone position for many days - currently on FiO2 of 40% and peep of 10. ABGs and chest x-ray reviewed, - off Nimbex and Versed infusion - weaning fentanyl Bronchodilators Chest CTA was negative for PE and lower extremity Dopplers were negative for DVT patient was diuresed over last couple of days . Will hold further diuresis as patient has developed contraction alkalosis - change PEEP to 8 (2) Pneumonia due to COVID-19 virus: Code(s): U07.1 - COVID-19; J12.82 - Pneumonia due to coronavirus disease 2018 Status: Acute Assessment and Plan: Although patient did get [employer] vaccine for COVID-19 she was tested positive for COVID-19 PCR. Her clinical picture and radiology findings are all suggestive of COVID 19 pneumonia Continue dexamethasone (started 03/28). She has completed 5 day course of Remdesivir Patient received 1 dose of convalscent plasma In light of rapid deterioration and high CRP, patient was administered Tocilizumab 04/01. QuantiFERON gold test was ordered is indeterminate she has completed 5 day course of Rocephin and azithromycin - inflammatory markers trending down, - CRP is down to <0.5 (3) Multiple sclerosis: Code(s): G35 - Multiple sclerosis Status: Acute Assessment and Plan: currently not on any treatment (4) Hypothyroidism: Code(s): E03.9 - Hypothyroidism, unspecified Status: Acute Assessment and Plan: continue levothyroxine (5) Hyperglycemia: Code(s): R73.9 - Hyperglycemia, unspecified Status: Acute Assessment and Plan: sliding scale insulin (6) Sepsis: Code(s): A41.9 - Sepsis, unspecified organism Status: Acute Assessment and Plan: 04/08 patient with elevated WBC count, and will infiltrates on the chest x-ray, started patient on cefepime and vancomycin 04/10: Sputum cultures growing -04/09: urine culture: no growth -04/09: blood cultures Coag-negative staph 1/2 bottles. discontinue vancomycin - Continue cefepime which was initiated on 04/09/2021 (7) Ileus: Code(s): K56.7 - Ileus, unspecified Status: Acute Assessment and Plan: patient has not had any significant issues with residuals earlier but today she vomited couple of times. Tube feeds were held she also had a bowel movement yesterday KUB - m Nonspecific bowel gas pattern. Moderate gas in the colon, possibly ileus. started Reglan and Zofran will resume tube feeds later today with low rate and see if patient tolerates Additional Plan DVT prophylaxis - continue Lovenox Stress ulcer prophylaxis - PPI Nutrition - currently tube feeds arm hold Code Status - full code . 04/13: discussed with patient's Yonas, and updated with patient's condition and plan of care. The stated that patient does not come out of sedation very well as she had a surgery in the past and took a day and a half to 2 days to come out of sedation. Total Critical Care Time - 35 minutes Due to a high probability of clinically significant, life threatening deterioration, the patient required my highest level of preparedness to intervene emergently and I personally spent this critical care time directly and personally managing the patient. This critical care time included obtaining a history; examining the patient; pulse oximetry; ordering and review of studies; arranging urgent treatment with development of a management plan; evaluation of patient's response to treatment; frequent reassessment; and discussions with other providers. It was exclusive of separately billable procedures and treating ot
--- NOTE | 2021-04-14 11:46 | PCDIET ---
Nutrition Follow-Up Complete: Nutrition Diagnosis: Inadequate oral intake related to pneumonia as evidenced by poor po intake reported. Nutrition Goal: Meet estimated nutritional needs Goal not met. Tube feedings on hold following emesis this morning. Bilious output via NG, per RN. MD checking KUB and adding Zofran. Last recorded weight is 107.9 kg which is down from last review. +I/O. Bowel Motility: BM x 1 on 04/13/21. Dulcolax given 04/13/21. Labs Reviewed: WBC (10.8), Glu (167), Na (134) Meds Noted: Lipitor, Maxipime, Fentanyl, Synthroid, Reglan, Lopressor, Versed, Protonix, Miralax Additional Notes: Right wrist skin tear. Abdominal folds reddened. Will continue to monitor with same goal. Nutrition Monitoring and Evaluation: Will monitor every Tuesday/Tuesday.
[2021-04-14] MEDS: dexmedeTOMIDine 400 MCG/100 ML 400 MCG/100 ML BAG 5.4 MCG IV CONT (12:17)
[2021-04-14] MEDS: ONDANSETRON INJ 4 MG/2 ML VIAL IV PUSH (12:17)
[2021-04-14 12:27] LABS: Glucose Point of Care 182 mg/dl (65-105)
[2021-04-14 16:51] LABS: Glucose Point of Care 178 mg/dl (65-105)
[2021-04-14 20:18] LABS: Glucose Point of Care 175 mg/dl (65-105)
[2021-04-15] VITALS (26 sets, daily range): BP systolic 97–137; BP diastolic 53–93; PULSE 61–77; RESP 25–28; TEMP 36.6–37.4; O2SAT 91–98
--- NOTE | 2021-04-15 00:04 | PC.NURSE ---
Blood glucose at 0000 is 188. No coverage required.
[2021-04-15 00:52] LABS: Glucose Point of Care 180 mg/dl (65-105)
[2021-04-15] MEDS: dexmedeTOMIDine 400 MCG/100 ML 400 MCG/100 ML BAG 5.4 MCG IV CONT ×2 (03:21→20:45)
[2021-04-15 03:28] LABS: Glucose Point of Care 153 mg/dl (65-105)
[2021-04-15 04:49] LABS: Base Excess ABG 6.2 mEq/l (+/-2.0); Carboxyhemoglobin 0.3 % THb (0-2.0); Fractional Inspired Oxygen 40 %; HCO3 ABG 29.8 mEq/l (22.0-26.0); Methemoglobin ABG 0.3 %THb (0-1.5); Oxygen Content ABG 17.3 %vol (16.0-22.0); Oxygen Saturation ABG 97.1 % (95.0-100.0); PCO2 ABG 39.1 mmHg (35.0-45.0); PO2 ABG 84.2 mmHg (80.0-100.0); PO2 FiO2 Ratio Arterial Blood 2.11 %; Reduced Hemoglobin 4.4 %THb (0-5.0); Total Hemoglobin 12.9 g/dL (12.0-18.0)
[2021-04-15 04:50] LABS: Arterial Blood Gas Vent Mode CMV; Arterial Blood Gas Ventilator rate 28 /MIN; Device VENTILATOR; Modified Allen's Test Pass; Site Drawn LEFT RADIAL
[2021-04-15 04:51] LABS: Arterial Blood Gas PEEP 8 cmH2O; Arterial Blood Gas Tidal Volume 360 ml
[2021-04-15] MEDS: METOCLOPRAMIDE HCL 10 MG/10 ML SOLN UDC PO ×4 (04:53→23:43)
[2021-04-15] MEDS: LEVOTHYROXINE SODIUM 150 MCG TABLET PO (04:53)
[2021-04-15] MEDS: CENTRAL LINE FLUSH 10 ML IV PUSH ×3 (04:53→22:40)
[2021-04-15 05:11] LABS: Basophils Percent Auto 0.4 % (0.2-1.2); Hematocrit 35.1 % (37.0-47.0); Hemoglobin 11.8 g/dL (12.0-15.0); Immature Granulocyte Absolute 0.09 K/mm3 (0.00-0.031); Immature Granulocyte Percent A 1.1 % (0-0.5); Lymphocytes Absolute Auto 1.25 K/mm3 (0.9-3.2); Lymphocytes Percent Auto 14.7 % (18.3-44.2); Mean Corpuscular HGB Conc 33.6 g/dl (32-36); Mean Corpuscular Hemoglobin 30.5 pg (26-34); Mean Corpuscular Volume 90.7 fl (80-100); Mean Platelet Volume 11.4 fl (7.4-10.4); Monocytes Absolute Auto 1.1 K/mm3 (0.1-0.6); Monocytes Percent Auto 12.4 % (2.6-8.5); Neutrophils Absolute Auto 6.1 K/mm3 (1.3-6.7); Neutrophils Percent Auto 71.4 % (45.5-73.1); Platelet Count Result 136 k/mm3 (150-375); Red Blood Count 3.87 M/mm3 (4.2-5.4); Red Cell Distribution Width 14.4 % (11.5-14.5); White Blood Count 8.5 K/mm3 (4.5-10.0)
[2021-04-15 05:45] LABS: Alanine Aminotransferase 45 U/L (4-35); Albumin Level 3.4 g/dL (3.5-5.1); Alkaline Phosphatase 96 U/L (38-126); Anion Gap 4 mmol/L (8-16); Aspartate Amino Transferase 46 U/L (14-36); Blood Urea Nitrogen 21 mg/dL (7-17); Calcium 9.1 mg/dL (8.4-10.2); Carbon Dioxide 36 mmol/L (22-30); Chloride 92 mmol/L (98-107); Estimated CRCL calculation 76 ml/min; Estimated Glomerular Filt Rate > 60; Glucose 143 mg/dL (65-110); Magnesium 2.1 mg/dL (1.6-2.3); Phosphorus 3.8 mg/dL (2.5-4.5); Potassium 3.9 mmol/L (3.4-5.0); Sodium 132 mmol/L (137-145)
[2021-04-15] MEDS: TOLNAFTATE 1% POWDER 45 GM BTL 1 APPLIC TOPICAL ×2 (08:30→20:43)
[2021-04-15] MEDS: METOPROLOL TARTRATE 25 MG TABLET PO ×2 (08:30→20:43)
[2021-04-15] MEDS: ATORVASTATIN 20 MG TABLET PO (08:30)
[2021-04-15] MEDS: polyethylene glycoL 3350 17 GM POWD.PACK PO (08:31)
[2021-04-15] MEDS: ENOXAPARIN 40 MG/0.4 ML SYRINGE SUB-Q ×2 (08:31→20:42)
[2021-04-15] MEDS: PANTOPRAZOLE SODIUM IV 40 MG VIAL IV PUSH (08:31)
[2021-04-15] MEDS: MINERAL OIL/WHITE PETROLATUM OINTMENT 1 APPLIC EACH EYE ×2 (08:31→20:43)
--- NOTE | 2021-04-15 11:31 | WPDINTPN ---
Progress Note: A&P Assessment and Plan (1) Acute respiratory failure with hypoxia: Code(s): J96.01 - Acute respiratory failure with hypoxia Status: Acute Assessment and Plan: Acute Respiratory failure secondary to COVID-19 pneumonia Aadmitted 03/28 BiPAP Intubated 04/05. patient was placed in prone position for many days - currently on FiO2 of 40% and peep of 8. ABGs and chest x-ray reviewed, - off Nimbex, fentanyl and Versed infusion - 04/14 patient was started on Precedex for sedation - patient was placed on spontaneous breathing trial but patient kept on alarming apnea ventilation. Will continue to try Bronchodilators Chest CTA was negative for PE and lower extremity Dopplers were negative for DVT patient was diuresed over last couple of days . Will hold further diuresis as patient has developed contraction alkalosis (2) Pneumonia due to COVID-19 virus: Code(s): U07.1 - COVID-19; J12.82 - Pneumonia due to coronavirus disease 2019 Status: Acute Assessment and Plan: Although patient did get [employer] vaccine for COVID-19 she was tested positive for COVID-19 PCR. Her clinical picture and radiology findings are all suggestive of COVID 19 pneumonia Continue dexamethasone (started 03/28). She has completed 5 day course of Remdesivir Patient received 1 dose of convalscent plasma In light of rapid deterioration and high CRP, patient was administered Tocilizumab 04/01. QuantiFERON gold test was ordered is indeterminate she has completed 5 day course of Rocephin and azithromycin - inflammatory markers trending down, - CRP is down to <0.5 (3) Multiple sclerosis: Code(s): G35 - Multiple sclerosis Status: Acute Assessment and Plan: currently not on any treatment (4) Hypothyroidism: Code(s): E03.9 - Hypothyroidism, unspecified Status: Acute Assessment and Plan: continue levothyroxine (5) Hyperglycemia: Code(s): R73.9 - Hyperglycemia, unspecified Status: Acute Assessment and Plan: sliding scale insulin (6) Sepsis: Code(s): A41.9 - Sepsis, unspecified organism Status: Acute Assessment and Plan: 04/08 patient with elevated WBC count, and will infiltrates on the chest x-ray, started patient on cefepime and vancomycin 04/10: Sputum cultures growing -04/09: urine culture: no growth -04/09: blood cultures Coag-negative staph 1/2 bottles. discontinue vancomycin - Continue cefepime which was initiated on 04/09/2021 (7) Ileus: Code(s): K56.7 - Ileus, unspecified Status: Acute Assessment and Plan: patient has not had any significant issues with residuals earlier but04/14 she vomited couple of times. Tube feeds were held she also had a bowel movement yesterday KUB showed Nonspecific bowel gas pattern. Moderate gas in the colon, possibly ileus. patient was started Reglan and Zofran she has been tolerating tube feeds overnight. Will advance today Additional Plan DVT prophylaxis - continue Lovenox Stress ulcer prophylaxis - PPI Nutrition - currently tube feeds arm hold Code Status - full code . Total Critical Care Time - 32 minutes Due to a high probability of clinically significant, life threatening deterioration, the patient required my highest level of preparedness to intervene emergently and I personally spent this critical care time directly and personally managing the patient. This critical care time included obtaining a history; examining the patient; pulse oximetry; ordering and review of studies; arranging urgent treatment with development of a management plan; evaluation of patient's response to treatment; frequent reassessment; and discussions with other providers. It was exclusive of separately billable procedures and treating other patients and teaching time. Please see Assessment and Plan section and the rest of the note for further information on pat
[2021-04-15 11:36] LABS: Glucose Point of Care 139 mg/dl (65-105)
[2021-04-15 12:21] LABS: Glucose Point of Care 157 mg/dl (65-105)
--- NOTE | 2021-04-15 12:42 | PCDIET ---
ICU Rounding Note: Patient tolerating Glucerna 1.2 at 20mL/hr with 30mL water flush every 4 hours. MD order to advance toward goal of 40mL/hr for today. Last recorded weight is 106.1kg which is down from last review. +I/O. Bowel Motility: Last documented BM on 04/13/21 x 1. Labs Reviewed: RBC (3.87), Hgb (11.8), Hct (35.1), Glu (143), BUN (21), Na (132), Alb (3.4) Meds Noted: Lipitor, Cefepime, Precedex, Lopressor, Fentanyl, Novolog, Synthroid, Reglan, Zofran, Protonix, Miralax Additional Notes: Right wrist skin tear. 04/14/21 KUB noted. Following daily in ICU rounds. Assessing/reassessing every Tuesday/Tuesday.
--- NOTE | 2021-04-15 17:01 | PM.IMPN ---
Progress Note: A&P Assessment and Plan (1) Acute respiratory failure with hypoxia: Code(s): J96.01 - Acute respiratory failure with hypoxia Status: Acute Assessment and Plan: Acute Respiratory failure secondary to COVID-19 pneumonia Aadmitted 03/28 BiPAP Intubated 04/05. patient was placed in prone position for many days - off Nimbex, fentanyl and Versed infusion - 04/14 patient was started on Precedex for sedation - patient was placed on spontaneous breathing trial but patient kept on alarming apnea ventilation. Will continue to try Bronchodilators Chest CTA was negative for PE and lower extremity Dopplers were negative for DVT patient was diuresed over last couple of days . Will hold further diuresis as patient has developed contraction alkalosis Further management per ICU (2) Pneumonia due to COVID-19 virus: Code(s): U07.1 - COVID-19; J12.82 - Pneumonia due to coronavirus disease 2018 Status: Acute Assessment and Plan: Although patient did get [employer] vaccine for COVID-19 she was tested positive for COVID-19 PCR. Her clinical picture and radiology findings are all suggestive of COVID 19 pneumonia Continue dexamethasone (started 03/28). She has completed 5 day course of Remdesivir Patient received 1 dose of convalscent plasma In light of rapid deterioration and high CRP, patient was administered Tocilizumab 04/01. QuantiFERON gold test was ordered is indeterminate she has completed 5 day course of Rocephin and azithromycin - inflammatory markers trending down, - CRP is down to <0.5 (3) Multiple sclerosis: Code(s): G35 - Multiple sclerosis Status: Acute Assessment and Plan: currently not on any treatment (4) Hypothyroidism: Code(s): E03.9 - Hypothyroidism, unspecified Status: Acute Assessment and Plan: continue levothyroxine (5) Hyperglycemia: Code(s): R73.9 - Hyperglycemia, unspecified Status: Acute Assessment and Plan: sliding scale insulin (6) Sepsis: Code(s): A41.9 - Sepsis, unspecified organism Status: Acute Assessment and Plan: 04/08 patient with elevated WBC count, and will infiltrates on the chest x-ray, started patient on cefepime and vancomycin 04/10: Sputum cultures growing -04/09: urine culture: no growth -04/09: blood cultures Coag-negative staph 1/2 bottles. discontinue vancomycin - Continue cefepime which was initiated on 04/09/2021 (7) Ileus: Code(s): K56.7 - Ileus, unspecified Status: Acute Assessment and Plan: patient has not had any significant issues with residuals earlier but04/14 she vomited couple of times. Tube feeds were held she also had a bowel movement yesterday KUB showed Nonspecific bowel gas pattern. Moderate gas in the colon, possibly ileus. patient was started Reglan and Zofran she has been tolerating tube feeds Additional Plan DVT prophylaxis - continue Lovenox Stress ulcer prophylaxis - PPI Nutrition - currently tube feeds arm hold Code Status - full code . Subjective Date/time seen: 04/15/21 17:01 Interval history: no overnight events remains afebrile remains on mechanical ventilation Review of Systems Review of Systems: ROS unobtainable: Yes unobtainable due to endotracheal tube Exam Narrative: General: Pt is sedated, intubated and on mechanical ventilation. She is in supine position Lungs/Chest: Trachea central Coarse BS B/L, diminished air entry at bases Cardiac: RRR. Normal S1 S2. No murmurs Circulation: Pedal pulses are intact and symmetrical. Abdomen: Decreased bowel sounds. Obese. Soft. NT. ND. Extremities: No clubbing, cyanosis or edema. Warm : Casper in place Neurologic: sedated on vent Objective Data Vital Signs Vital Signs: Vital Signs - 24 hr 04/14/21 17:30 04/14/21 17:40 04/14/21 18:00 Temperature 99.5 F Pulse Rate 84 90 91 Respiratory Rate 25
[2021-04-15 17:44] LABS: Glucose Point of Care 172 mg/dl (65-105)
[2021-04-16] VITALS (26 sets, daily range): BP systolic 90–156; BP diastolic 52–72; PULSE 57–91; RESP 12–25; TEMP 36.5–37.4; O2SAT 91–97
[2021-04-16 00:31] LABS: Glucose Point of Care 154 mg/dl (65-105)
[2021-04-16 04:20] LABS: Alveolar/Arterial O2 Gradient 158.3 mmHg; Base Excess ABG 5.6 mEq/l (+/-2.0); Carboxyhemoglobin 0.3 % THb (0-2.0); Fractional Inspired Oxygen 40 %; HCO3 ABG 29.8 mEq/l (22.0-26.0); Methemoglobin ABG 0.3 %THb (0-1.5); Oxygen Content ABG 17.4 %vol (16.0-22.0); Oxygen Saturation ABG 96.3 % (95.0-100.0); Oxyhemoglobin 94.3 % THb (90.0-100.0); PCO2 ABG 41.9 mmHg (35.0-45.0); PO2 ABG 78.7 mmHg (80.0-100.0); PO2 FiO2 Ratio Arterial Blood 1.97 %; Reduced Hemoglobin 5.1 %THb (0-5.0); Total Hemoglobin 13.1 g/dL (12.0-18.0)
[2021-04-16 04:21] LABS: Device VENTILATOR; Modified Allen's Test Pass; Site Drawn LEFT RADIAL
[2021-04-16] MEDS: METOCLOPRAMIDE HCL 10 MG/10 ML SOLN UDC PO ×4 (05:38→23:37)
[2021-04-16] MEDS: CENTRAL LINE FLUSH 10 ML IV PUSH ×3 (05:39→22:09)
[2021-04-16] MEDS: LEVOTHYROXINE SODIUM 150 MCG TABLET PO (05:39)
[2021-04-16 05:40] LABS: Basophils Percent Auto 0.6 % (0.2-1.2); Hemoglobin 11.8 g/dL (12.0-15.0); Immature Granulocyte Absolute 0.09 K/mm3 (0.00-0.031); Immature Granulocyte Percent A 1.3 % (0-0.5); Immature Platelet Fraction Pct 8.8 % (0.9-11.2); Lymphocytes Absolute Auto 1.04 K/mm3 (0.9-3.2); Mean Corpuscular HGB Conc 32.8 g/dl (32-36); Mean Corpuscular Hemoglobin 30.1 pg (26-34); Mean Corpuscular Volume 91.8 fl (80-100); Mean Platelet Volume 11.1 fl (7.4-10.4); Monocytes Percent Auto 14.7 % (2.6-8.5); Neutrophils Absolute Auto 4.7 K/mm3 (1.3-6.7); Neutrophils Percent Auto 68.4 % (45.5-73.1); Platelet Count Result 146 k/mm3 (150-375); Red Blood Count 3.92 M/mm3 (4.2-5.4); Red Cell Distribution Width 14.6 % (11.5-14.5); White Blood Count 6.9 K/mm3 (4.5-10.0)
[2021-04-16 06:00] LABS: Blood Urea Nitrogen 22 mg/dL (7-17); Calcium 9.1 mg/dL (8.4-10.2); Carbon Dioxide 30 mmol/L (22-30); Estimated CRCL calculation 86 ml/min; Estimated Glomerular Filt Rate > 60; Glucose 139 mg/dL (65-110)
[2021-04-16 06:22] LABS: Anion Gap 7 mmol/L (8-16); Chloride 94 mmol/L (98-107); Potassium 3.8 mmol/L (3.4-5.0); Sodium 131 mmol/L (137-145)
[2021-04-16 06:50] LABS: Glucose Point of Care 150 mg/dl (65-105)
[2021-04-16] MEDS: ENOXAPARIN 40 MG/0.4 ML SYRINGE SUB-Q ×2 (07:55→20:48)
[2021-04-16] MEDS: polyethylene glycoL 3350 17 GM POWD.PACK PO (07:55)
[2021-04-16] MEDS: PANTOPRAZOLE SODIUM IV 40 MG VIAL IV PUSH (07:55)
[2021-04-16] MEDS: TOLNAFTATE 1% POWDER 45 GM BTL 1 APPLIC TOPICAL ×2 (07:56→20:48)
[2021-04-16] MEDS: MINERAL OIL/WHITE PETROLATUM OINTMENT 1 APPLIC EACH EYE ×2 (07:56→20:48)
[2021-04-16] MEDS: ATORVASTATIN 20 MG TABLET PO (07:56)
[2021-04-16] MEDS: METOPROLOL TARTRATE 25 MG TABLET PO ×2 (08:22→20:48)
--- NOTE | 2021-04-16 11:28 | WPDINTPN ---
Progress Note: A&P Assessment and Plan (1) Acute respiratory failure with hypoxia: Code(s): J96.01 - Acute respiratory failure with hypoxia Status: Acute Assessment and Plan: Acute Respiratory failure secondary to COVID-19 pneumonia Aadmitted 03/28 BiPAP Intubated 04/05. patient was placed in prone position for many days - currently on FiO2 of 40% and peep of 8. ABGs and chest x-ray reviewed, - off Nimbex, fentanyl and Versed infusion - 04/14 patient was started on Precedex for sedation - patient was placed on spontaneous breathing trial yesterday but patient kept on alarming apnea ventilation. I again tried today and patient had low respiratory rate - DC Precedex infusion. switch patient to ASV mode Bronchodilators Chest CTA was negative for PE and lower extremity Dopplers were negative for DVT patient was diuresed over last couple of days . Will hold further diuresis as patient has developed contraction alkalosis (2) Pneumonia due to COVID-19 virus: Code(s): U07.1 - COVID-19; J12.82 - Pneumonia due to coronavirus disease 2019 Status: Acute Assessment and Plan: Although patient did get [employer] vaccine for COVID-19 she was tested positive for COVID-19 PCR. Her clinical picture and radiology findings are all suggestive of COVID 19 pneumonia Continue dexamethasone (started 03/28). She has completed 5 day course of Remdesivir Patient received 1 dose of convalscent plasma In light of rapid deterioration and high CRP, patient was administered Tocilizumab 04/01. QuantiFERON gold test was ordered is indeterminate she has completed 5 day course of Rocephin and azithromycin - inflammatory markers trending down, - CRP is down to <0.5 (3) Multiple sclerosis: Code(s): G35 - Multiple sclerosis Status: Acute Assessment and Plan: currently not on any treatment (4) Hypothyroidism: Code(s): E03.9 - Hypothyroidism, unspecified Status: Acute Assessment and Plan: continue levothyroxine (5) Hyperglycemia: Code(s): R73.9 - Hyperglycemia, unspecified Status: Acute Assessment and Plan: sliding scale insulin (6) Sepsis: Code(s): A41.9 - Sepsis, unspecified organism Status: Acute Assessment and Plan: 04/08 patient with elevated WBC count, and will infiltrates on the chest x-ray, started patient on cefepime and vancomycin 04/10: Sputum cultures growing -04/09: urine culture: no growth -04/09: blood cultures Coag-negative staph 1/2 bottles. discontinue vancomycin - will discontinue cefepime after a 7 day course (7) Ileus: Code(s): K56.7 - Ileus, unspecified Status: Acute Assessment and Plan: patient has not had any significant issues with residuals earlier but04/14 she vomited couple of times. Tube feeds were held she also had a bowel movement yesterday KUB showed Nonspecific bowel gas pattern. Moderate gas in the colon, possibly ileus. patient was started Reglan and Zofran she has been tolerating tube feeds overnight. Will continue advance today to goal Additional Plan DVT prophylaxis - continue Lovenox Stress ulcer prophylaxis - PPI Nutrition - currently tube feeds arm hold Code Status - full code . Total Critical Care Time - 30 minutes Due to a high probability of clinically significant, life threatening deterioration, the patient required my highest level of preparedness to intervene emergently and I personally spent this critical care time directly and personally managing the patient. This critical care time included obtaining a history; examining the patient; pulse oximetry; ordering and review of studies; arranging urgent treatment with development of a management plan; evaluation of patient's response to treatment; frequent reassessment; and discussions with other providers. It was exclusive of separately billable procedures and treating other patient
--- NOTE | 2021-04-16 12:03 | PCDIET ---
Nutrition Follow-Up Complete: Nutrition Diagnosis: Inadequate oral intake related to pneumonia as evidenced by poor po intake reported. Nutrition Goal: Meet estimated nutritional needs Goal in progress. MD order to increase tube feedings to 50mL/hr Glucerna 1.2. Water flush of 30mL every 4 hours continues. Last recorded weight is 104.6 kg which is down from last review. Bowel Motility: +BM today. Labs Reviewed: RBC (3.92), Hgb (11.8), Hct (35.1), Glu (143), BUN (21), Na (132), Alb (3.4) Meds Noted: Lipitor, Fentanyl, Synthroid, Maxipime, Reglan, Protonix, Precedex, Lopressor, Miralax Additional Notes: Right wrist skin tear. Groin reddened. Nystatin in use. Will continue to monitor with same goal. Nutrition Monitoring and Evaluation: Will monitor every Tuesday/Tuesday.
[2021-04-16 12:20] LABS: Glucose Point of Care 149 mg/dl (65-105)
--- NOTE | 2021-04-16 15:33 | PM.IMPN ---
Progress Note: A&P Assessment and Plan (1) Acute respiratory failure with hypoxia: Code(s): J96.01 - Acute respiratory failure with hypoxia Status: Acute Assessment and Plan: Acute Respiratory failure secondary to COVID-19 pneumonia Aadmitted 03/28 BiPAP Intubated 04/05. patient was placed in prone position for many days - off Nimbex, fentanyl and Versed infusion - 04/14 patient was started on Precedex for sedation - patient was placed on spontaneous breathing trial but patient kept on alarming apnea ventilation. Will continue to try Bronchodilators Chest CTA was negative for PE and lower extremity Dopplers were negative for DVT patient was diuresed over last couple of days . Will hold further diuresis as patient has developed contraction alkalosis Further management per ICU (2) Pneumonia due to COVID-19 virus: Code(s): U07.1 - COVID-19; J12.82 - Pneumonia due to coronavirus disease 2018 Status: Acute Assessment and Plan: Although patient did get [employer] vaccine for COVID-19 she was tested positive for COVID-19 PCR. Her clinical picture and radiology findings are all suggestive of COVID 19 pneumonia Continue dexamethasone (started 03/28). She has completed 5 day course of Remdesivir Patient received 1 dose of convalscent plasma In light of rapid deterioration and high CRP, patient was administered Tocilizumab 04/01. QuantiFERON gold test was ordered is indeterminate she has completed 5 day course of Rocephin and azithromycin - inflammatory markers trending down, - CRP is down to <0.5 (3) Multiple sclerosis: Code(s): G35 - Multiple sclerosis Status: Acute Assessment and Plan: currently not on any treatment (4) Hypothyroidism: Code(s): E03.9 - Hypothyroidism, unspecified Status: Acute Assessment and Plan: continue levothyroxine (5) Hyperglycemia: Code(s): R73.9 - Hyperglycemia, unspecified Status: Acute Assessment and Plan: sliding scale insulin (6) Sepsis: Code(s): A41.9 - Sepsis, unspecified organism Status: Acute Assessment and Plan: 04/08 patient with elevated WBC count, and will infiltrates on the chest x-ray, started patient on cefepime and vancomycin 04/10: Sputum cultures growing -04/09: urine culture: no growth -04/09: blood cultures Coag-negative staph 1/2 bottles. discontinue vancomycin - Continue cefepime which was initiated on 04/09/2021 (7) Ileus: Code(s): K56.7 - Ileus, unspecified Status: Acute Assessment and Plan: patient has not had any significant issues with residuals earlier but04/14 she vomited couple of times. Tube feeds were held she also had a bowel movement yesterday KUB showed Nonspecific bowel gas pattern. Moderate gas in the colon, possibly ileus. patient was started Reglan and Zofran she has been tolerating tube feeds Additional Plan DVT prophylaxis - continue Lovenox Stress ulcer prophylaxis - PPI Nutrition - currently tube feeds arm hold Code Status - full code Subjective Date/time seen: 04/16/21 15:33 Interval history: no overnight events remains afebrile remains on mechanical ventilation awake and alert and communicates with head nodding Review of Systems Review of Systems: ROS unobtainable: Yes unobtainable due to endotracheal tube and unobtainable due to medical condition Exam Narrative: General: Pt is awake and alert on vent. She is in supine position Lungs/Chest: Trachea central Coarse BS B/L, diminished air entry at bases Cardiac: RRR. Normal S1 S2. No murmurs Circulation: Pedal pulses are intact and symmetrical. Abdomen: Decreased bowel sounds. Obese. Soft. NT. ND. Extremities: No clubbing, cyanosis or edema. Warm : [place] in place Neurologic: patient is off sedation awake and alert and communicates nonverbally Objective Data Vital Signs Vital Signs: Vital Signs - 24 h
[2021-04-16 17:32] LABS: Glucose Point of Care 175 mg/dl (65-105)
[2021-04-17] VITALS (22 sets, daily range): BP systolic 104–152; BP diastolic 51–71; PULSE 65–96; RESP 14–25; TEMP 37.2–38.1; O2SAT 90–100
[2021-04-17 01:11] LABS: Glucose Point of Care 170 mg/dl (65-105)
[2021-04-17 05:05] LABS: Base Excess ABG 6.2 mEq/l (+/-2.0); Carboxyhemoglobin 0.7 % THb (0-2.0); Fractional Inspired Oxygen 35 %; HCO3 ABG 30.8 mEq/l (22.0-26.0); Methemoglobin ABG 0.6 %THb (0-1.5); Oxygen Content ABG 23.2 %vol (16.0-22.0); Oxygen Saturation ABG 96.4 % (95.0-100.0); Oxyhemoglobin 94.7 % THb (90.0-100.0); PCO2 ABG 43.4 mmHg (35.0-45.0); PO2 ABG 80.1 mmHg (80.0-100.0); PO2 FiO2 Ratio Arterial Blood 2.29 %; Total Hemoglobin 17.4 g/dL (12.0-18.0); pH ABG 7.469 (7.350-7.450)
[2021-04-17 05:07] LABS: Device VENTILATOR; Modified Allen's Test Pass; Site Drawn LEFT RADIAL
[2021-04-17 05:08] LABS: Arterial Blood Gas PEEP 8 cmH2O; Arterial Blood Gas Tidal Volume 360 ml; Arterial Blood Gas Vent Mode CMV; Arterial Blood Gas Ventilator rate 25 /MIN
[2021-04-17] MEDS: LEVOTHYROXINE SODIUM 150 MCG TABLET PO (05:34)
[2021-04-17] MEDS: METOCLOPRAMIDE HCL 10 MG/10 ML SOLN UDC PO ×3 (05:34→23:53)
[2021-04-17] MEDS: CENTRAL LINE FLUSH 10 ML IV PUSH ×3 (05:34→20:40)
[2021-04-17 05:58] LABS: Hematocrit 34.9 % (37.0-47.0); Hemoglobin 11.7 g/dL (12.0-15.0); Immature Platelet Fraction Pct 10.6 % (0.9-11.2); Mean Corpuscular HGB Conc 33.5 g/dl (32-36); Mean Corpuscular Hemoglobin 30.7 pg (26-34); Mean Corpuscular Volume 91.6 fl (80-100); Mean Platelet Volume 11.8 fl (7.4-10.4); Platelet Count Result 116 k/mm3 (150-375); Red Blood Count 3.81 M/mm3 (4.2-5.4); Red Cell Distribution Width 14.7 % (11.5-14.5); White Blood Count 8.4 K/mm3 (4.5-10.0)
[2021-04-17 06:14] LABS: Alanine Aminotransferase 39 U/L (4-35); Albumin Level 3.3 g/dL (3.5-5.1); Alkaline Phosphatase 104 U/L (38-126); Anion Gap 6 mmol/L (8-16); Aspartate Amino Transferase 37 U/L (14-36); Bilirubin,Total 0.8 mg/dL (0.2-1.3); Blood Urea Nitrogen 18 mg/dL (7-17); Carbon Dioxide 30 mmol/L (22-30); Chloride 96 mmol/L (98-107); Estimated CRCL calculation 85 ml/min; Estimated Glomerular Filt Rate > 60; Glucose 147 mg/dL (65-110); Magnesium 2.2 mg/dL (1.6-2.3); Potassium 4.2 mmol/L (3.4-5.0); Sodium 132 mmol/L (137-145)
[2021-04-17 06:46] LABS: Glucose Point of Care 181 mg/dl (65-105)
[2021-04-17 07:35] LABS: Arterial Blood Gas Vent Mode CMV; Arterial Blood Gas Ventilator rate 25 /MIN
[2021-04-17 07:36] LABS: Arterial Blood Gas PEEP 8 cmH2O; Arterial Blood Gas Tidal Volume 300 ml
[2021-04-17] MEDS: TOLNAFTATE 1% POWDER 45 GM BTL 1 APPLIC TOPICAL ×2 (09:42→20:39)
[2021-04-17] MEDS: METOPROLOL TARTRATE 25 MG TABLET PO ×2 (09:42→20:38)
[2021-04-17] MEDS: MINERAL OIL/WHITE PETROLATUM OINTMENT 1 APPLIC EACH EYE ×2 (09:42→20:39)
[2021-04-17] MEDS: ENOXAPARIN 40 MG/0.4 ML SYRINGE SUB-Q ×2 (09:42→20:39)
[2021-04-17] MEDS: ATORVASTATIN 20 MG TABLET PO (09:42)
[2021-04-17] MEDS: polyethylene glycoL 3350 17 GM POWD.PACK PO (09:42)
[2021-04-17] MEDS: PANTOPRAZOLE SODIUM IV 40 MG VIAL IV PUSH (09:42)
--- NOTE | 2021-04-17 12:09 | PCDIET ---
Nutrition Follow-Up Complete: Nutrition Diagnosis: Inadequate oral intake related to pneumonia as evidenced by poor intake reported. Nutrition Goal: Meet estimated nutritional needs Goal met. Patient tolerating Glucerna 1.2 at 50mL/hr goal rate with 30mL water flush every 4 hours. Last recorded weight is 106 kg which is increased from last review. +I/O. Bowel Motility: Last documented BM on 04/16/21 x 1. Labs Reviewed: RBC (3.81), Hgb (11.7), Hct (34.9), Glu (147), BUN (18), Na (132), Alb (3.3) Meds Noted: Lipitor, Synthroid, Reglan, Lopressor, Protonix, Miralax Additional Notes: Right wrist with skin tear. Will continue to monitor with same goal. Nutrition Monitoring and Evaluation: Will monitor every Tuesday/Tuesday.
[2021-04-17 12:56] LABS: Glucose Point of Care 160 mg/dl (65-105)
--- NOTE | 2021-04-17 13:12 | WPDINTPN ---
Progress Note: A&P Assessment and Plan (1) Acute respiratory failure with hypoxia: Code(s): J96.01 - Acute respiratory failure with hypoxia Status: Acute Assessment and Plan: Acute Respiratory failure secondary to COVID-19 pneumonia Aadmitted 03/28 BiPAP Intubated 04/05. patient was placed in prone position for many days - currently on FiO2 of 40% and peep of 5. ABGs and chest x-ray reviewed, - off Nimbex, fentanyl and Versed infusion - 04/14 patient was started on Precedex for sedation which has been discontinued now - last couple of days patient has failed weaning trial due to low respiratory rate and apnea alarm - patient was placed on 12/ PSV this morning. will likely need tracheostomy if unable to be extubated over next few days Bronchodilators Chest CTA was negative for PE and lower extremity Dopplers were negative for DVT (2) Pneumonia due to COVID-19 virus: Code(s): U07.1 - COVID-19; J12.82 - Pneumonia due to coronavirus disease 2019 Status: Acute Assessment and Plan: Although patient did get Rajan Rajan vaccine for COVID-19 she was tested positive for COVID-19 PCR. Her clinical picture and radiology findings are all suggestive of COVID 19 pneumonia Continue dexamethasone (started 03/28). She has completed 5 day course of Remdesivir Patient received 1 dose of convalscent plasma In light of rapid deterioration and high CRP, patient was administered Tocilizumab 04/01. QuantiFERON gold test was ordered is indeterminate she has completed 5 day course of Rocephin and azithromycin - inflammatory markers trending down, - CRP is down to <0.5 (3) Multiple sclerosis: Code(s): G35 - Multiple sclerosis Status: Acute Assessment and Plan: currently not on any treatment (4) Hypothyroidism: Code(s): E03.9 - Hypothyroidism, unspecified Status: Acute Assessment and Plan: continue levothyroxine (5) Hyperglycemia: Code(s): R73.9 - Hyperglycemia, unspecified Status: Acute Assessment and Plan: sliding scale insulin (6) Sepsis: Code(s): A41.9 - Sepsis, unspecified organism Status: Acute Assessment and Plan: 04/08 patient with elevated WBC count, and will infiltrates on the chest x-ray, started patient on cefepime and vancomycin 04/10: Sputum cultures growing -04/09: urine culture: no growth -04/09: blood cultures Coag-negative staph 1/2 bottles. discontinue vancomycin. completed 7 day course of cefepime (7) Ileus: Code(s): K56.7 - Ileus, unspecified Status: Acute Assessment and Plan: patient has not had any significant issues with residuals earlier but04/14 she vomited couple of times. Tube feeds were held KUB showed Nonspecific bowel gas pattern. Moderate gas in the colon, possibly ileus. patient was started Reglan and Zofran she has been tolerating tube feeds for last few days. continue at goal Additional Plan DVT prophylaxis - continue Lovenox Stress ulcer prophylaxis - PPI Nutrition - continue tube feeds Code Status - full code . Total Critical Care Time - 33 minutes Due to a high probability of clinically significant, life threatening deterioration, the patient required my highest level of preparedness to intervene emergently and I personally spent this critical care time directly and personally managing the patient. This critical care time included obtaining a history; examining the patient; pulse oximetry; ordering and review of studies; arranging urgent treatment with development of a management plan; evaluation of patient's response to treatment; frequent reassessment; and discussions with other providers. It was exclusive of separately billable procedures and treating other patients and teaching time. Please see Assessment and Plan section and the rest of the note for further information on patient assessment and treatment Subjective Date/t
--- NOTE | 2021-04-17 13:52 | PM.IMPN ---
Progress Note: A&P Assessment and Plan (1) Acute respiratory failure with hypoxia: Code(s): J96.01 - Acute respiratory failure with hypoxia Status: Acute Assessment and Plan: Acute Respiratory failure secondary to COVID-19 pneumonia Aadmitted 03/28 BiPAP Intubated 04/05. patient was placed in prone position for many days - currently on FiO2 of 40% and peep of 5. ABGs and chest x-ray reviewed, - off Nimbex, fentanyl and Versed infusion - 04/14 patient was started on Precedex for sedation which has been discontinued now - last couple of days patient has failed weaning trial due to low respiratory rate and apnea alarm - patient was placed on 12 PSV this morning. will likely need tracheostomy if unable to be extubated over next few days Bronchodilators Chest CTA was negative for PE and lower extremity Dopplers were negative for DVT On weaning trial per ICU team (2) Pneumonia due to COVID-19 virus: Code(s): U07.1 - COVID-19; J12.82 - Pneumonia due to coronavirus disease 2019 Status: Acute Assessment and Plan: Although patient did get [employer] vaccine for COVID-19 she was tested positive for COVID-19 PCR. Her clinical picture and radiology findings are all suggestive of COVID 19 pneumonia Continue dexamethasone (started 03/28). She has completed 5 day course of Remdesivir Patient received 1 dose of convalscent plasma In light of rapid deterioration and high CRP, patient was administered Tocilizumab 04/01. QuantiFERON gold test was ordered is indeterminate she has completed 5 day course of Rocephin and azithromycin - inflammatory markers trending down, - CRP is down to <0.5 (3) Multiple sclerosis: Code(s): G35 - Multiple sclerosis Status: Acute Assessment and Plan: currently not on any treatment (4) Hypothyroidism: Code(s): E03.9 - Hypothyroidism, unspecified Status: Acute Assessment and Plan: continue levothyroxine (5) Hyperglycemia: Code(s): R73.9 - Hyperglycemia, unspecified Status: Acute Assessment and Plan: sliding scale insulin (6) Sepsis: Code(s): A41.9 - Sepsis, unspecified organism Status: Acute Assessment and Plan: 04/08 patient with elevated WBC count, and will infiltrates on the chest x-ray, started patient on cefepime and vancomycin 04/10: Sputum cultures growing -04/09: urine culture: no growth -04/09: blood cultures Coag-negative staph 1/2 bottles. discontinue vancomycin. completed 7 day course of cefepime (7) Ileus: Code(s): K56.7 - Ileus, unspecified Status: Acute Assessment and Plan: patient has not had any significant issues with residuals earlier but04/14 she vomited couple of times. Tube feeds were held KUB showed Nonspecific bowel gas pattern. Moderate gas in the colon, possibly ileus. patient was started Reglan and Zofran on tube feeds and tolerating okay Additional Plan DVT prophylaxis - continue Lovenox Stress ulcer prophylaxis - PPI Nutrition - continue tube feeds Code Status - full code . Subjective Date/time seen: 04/17/21 13:52 Interval history: no overnight events. She has tried on a pressure support ventilation. She is awake and communicated while on vent. Remains afebrile Review of Systems Review of Systems: ROS unobtainable: Yes unobtainable due to endotracheal tube Exam Narrative: General: Pt is awake on mechanical ventilation. She is in supine position Lungs/Chest: Trachea central Coarse BS B/L, diminished air entry at bases Cardiac: RRR. Normal S1 S2. No murmurs Circulation: Pedal pulses are intact and symmetrical. Abdomen: Decreased bowel sounds. Obese. Soft. NT. ND. Extremities: No clubbing, cyanosis or edema. Warm : Casper in place Neurologic: patient is awake and following commands Objective Data Vital Signs Vital Signs: Vital Signs - 24 hr 04/16/21 14:00
[2021-04-17 17:23] LABS: Glucose Point of Care 180 mg/dl (65-105)
[2021-04-18] VITALS (21 sets, daily range): BP systolic 98–136; BP diastolic 52–89; PULSE 67–97; RESP 12–27; TEMP 37.3–38.1; O2SAT 92–99
[2021-04-18 00:15] LABS: Glucose Point of Care 155 mg/dl (65-105)
[2021-04-18 03:33] LABS: Alveolar/Arterial O2 Gradient 128.9 mmHg; Base Excess ABG 7.1 mEq/l (+/-2.0); Carboxyhemoglobin 0.4 % THb (0-2.0); Fractional Inspired Oxygen 35 %; HCO3 ABG 31.4 mEq/l (22.0-26.0); Methemoglobin ABG 0.6 %THb (0-1.5); Oxygen Content ABG 20.1 %vol (16.0-22.0); Oxygen Saturation ABG 95.3 % (95.0-100.0); Oxyhemoglobin 93.4 % THb (90.0-100.0); PCO2 ABG 42.6 mmHg (35.0-45.0); PO2 ABG 71.1 mmHg (80.0-100.0); PO2 FiO2 Ratio Arterial Blood 2.03 %; Reduced Hemoglobin 5.6 %THb (0-5.0); Total Hemoglobin 15.3 g/dL (12.0-18.0); pH ABG 7.485 (7.350-7.450)
[2021-04-18 03:35] LABS: Arterial Blood Gas Vent Mode ASV; Device VENTILATOR; Modified Allen's Test Pass; Site Drawn LEFT RADIAL
[2021-04-18 03:36] LABS: Arterial Blood Gas PEEP 5 cmH2O
[2021-04-18] MEDS: CENTRAL LINE FLUSH 10 ML IV PUSH ×3 (06:48→20:00)
[2021-04-18] MEDS: METOCLOPRAMIDE HCL 10 MG/10 ML SOLN UDC PO ×3 (06:54→18:08)
[2021-04-18] MEDS: LEVOTHYROXINE SODIUM 150 MCG TABLET PO (06:55)
[2021-04-18 07:04] LABS: Glucose Point of Care 138 mg/dl (65-105)
[2021-04-18 07:05] LABS: Hematocrit 34.3 % (37.0-47.0); Hemoglobin 11.5 g/dL (12.0-15.0); Mean Corpuscular HGB Conc 33.5 g/dl (32-36); Mean Corpuscular Hemoglobin 30.7 pg (26-34); Mean Corpuscular Volume 91.5 fl (80-100); Mean Platelet Volume 11.1 fl (7.4-10.4); Platelet Count Result 157 k/mm3 (150-375); Red Blood Count 3.75 M/mm3 (4.2-5.4); Red Cell Distribution Width 15.1 % (11.5-14.5); White Blood Count 8.6 K/mm3 (4.5-10.0)
[2021-04-18 07:15] LABS: Alanine Aminotransferase 39 U/L (4-35); Albumin Level 3.2 g/dL (3.5-5.1); Alkaline Phosphatase 106 U/L (38-126); Anion Gap 4 mmol/L (8-16); Aspartate Amino Transferase 39 U/L (14-36); Bilirubin,Total 0.7 mg/dL (0.2-1.3); Blood Urea Nitrogen 14 mg/dL (7-17); Calcium 8.8 mg/dL (8.4-10.2); Carbon Dioxide 32 mmol/L (22-30); Chloride 98 mmol/L (98-107); Estimated CRCL calculation 86 ml/min; Estimated Glomerular Filt Rate > 60; Glucose 130 mg/dL (65-110); Magnesium 2.3 mg/dL (1.6-2.3); Sodium 134 mmol/L (137-145)
--- NOTE | 2021-04-18 08:47 | WPDINTPN ---
Progress Note: A&P Assessment and Plan (1) Acute respiratory failure with hypoxia: Code(s): J96.01 - Acute respiratory failure with hypoxia Status: Acute Assessment and Plan: Acute Respiratory failure secondary to COVID-19 pneumonia Aadmitted 03/28 BiPAP Intubated 04/05. patient was placed in prone position for many days - currently on FiO2 of 40% and peep of 5. ABGs and chest x-ray reviewed, - off Nimbex, fentanyl and Versed infusion - 04/14 patient was started on Precedex for sedation which has been discontinued now - - patient was placed on 08/23 PSV He yesterday but she only could do it for some time. she was switched to ASV mode. This morning her rate was high in 40s with told tidal volume. I switch patient back to CMV - today is day 13 of her intubation and she is no where close to extubation but has made progress over the past 2 weeks. - She will need tracheostomy Bronchodilators Chest CTA was negative for PE and lower extremity Dopplers were negative for DVT (2) Pneumonia due to COVID-19 virus: Code(s): U07.1 - COVID-19; J12.82 - Pneumonia due to coronavirus disease 2019 Status: Acute Assessment and Plan: Although patient did get Rajan Rajan vaccine for COVID-19 she was tested positive for COVID-19 PCR. Her clinical picture and radiology findings are all suggestive of COVID 19 pneumonia Continue dexamethasone (started 03/28). She has completed 5 day course of Remdesivir Patient received 1 dose of convalscent plasma In light of rapid deterioration and high CRP, patient was administered Tocilizumab 04/01. QuantiFERON gold test was ordered is indeterminate she has completed 5 day course of Rocephin and azithromycin - inflammatory markers trending down, - CRP is down to <0.5 (3) Multiple sclerosis: Code(s): G35 - Multiple sclerosis Status: Acute Assessment and Plan: currently not on any treatment (4) Hypothyroidism: Code(s): E03.9 - Hypothyroidism, unspecified Status: Acute Assessment and Plan: continue levothyroxine (5) Hyperglycemia: Code(s): R73.9 - Hyperglycemia, unspecified Status: Acute Assessment and Plan: sliding scale insulin (6) Sepsis: Code(s): A41.9 - Sepsis, unspecified organism Status: Acute Assessment and Plan: 04/08 patient with elevated WBC count, and will infiltrates on the chest x-ray, started patient on cefepime and vancomycin 04/10: Sputum cultures growing -04/09: urine culture: no growth -04/09: blood cultures Coag-negative staph 1/2 bottles. discontinue vancomycin. completed 7 day course of cefepime (7) Ileus: Code(s): K56.7 - Ileus, unspecified Status: Acute Assessment and Plan: patient has not had any significant issues with residuals earlier but04/14 she vomited couple of times. Tube feeds were held KUB showed Nonspecific bowel gas pattern. Moderate gas in the colon, possibly ileus. patient was started Reglan and Zofran she has been tolerating tube feeds for last few days. continue at goal Additional Plan DVT prophylaxis - continue Lovenox Stress ulcer prophylaxis - PPI Nutrition - continue tube feeds Code Status - full code . I spoke to patient's by phone today and updated him with patient's current status, continued need for mechanical ventilation and current treatment plan. I discussed options of tracheostomy and PEG tube. he is agreeable . I will consult GI and ENT Total Critical Care Time - 35 minutes Due to a high probability of clinically significant, life threatening deterioration, the patient required my highest level of preparedness to intervene emergently and I personally spent this critical care time directly and personally managing the patient. This critical care time included obtaining a history; examining the patient; pulse oximetry; ordering and review of studies; arranging urgent
[2021-04-18] MEDS: METOPROLOL TARTRATE 25 MG TABLET PO ×2 (08:52→20:00)
[2021-04-18] MEDS: ATORVASTATIN 20 MG TABLET PO (08:52)
[2021-04-18] MEDS: ENOXAPARIN 40 MG/0.4 ML SYRINGE SUB-Q ×2 (08:52→20:00)
[2021-04-18] MEDS: TOLNAFTATE 1% POWDER 45 GM BTL 1 APPLIC TOPICAL ×2 (08:52→20:00)
[2021-04-18] MEDS: MINERAL OIL/WHITE PETROLATUM OINTMENT 1 APPLIC EACH EYE ×2 (08:52→20:00)
[2021-04-18] MEDS: PANTOPRAZOLE SODIUM IV 40 MG VIAL IV PUSH (08:52)
--- NOTE | 2021-04-18 10:29 | PM.IMPN ---
Progress Note: A&P Assessment and Plan (1) Acute respiratory failure with hypoxia: Code(s): J96.01 - Acute respiratory failure with hypoxia Status: Acute Assessment and Plan: Acute Respiratory failure secondary to COVID-19 pneumonia Aadmitted 03/28 BiPAP Intubated 04/05. patient was placed in prone position for many days - currently on FiO2 of 40% and peep of 5. ABGs and chest x-ray reviewed, - off Nimbex, fentanyl and Versed infusion - 04/14 patient was started on Precedex for sedation which has been discontinued now - last couple of days patient has failed weaning trial due to low respiratory rate and apnea alarm she has been feeling weaning trial likely needs tracheostomy soon Chest CTA was negative for PE and lower extremity Dopplers were negative for DVT (2) Pneumonia due to COVID-19 virus: Code(s): U07.1 - COVID-19; J12.82 - Pneumonia due to coronavirus disease 2018 Status: Acute Assessment and Plan: Although patient did get [employer] vaccine for COVID-19 she was tested positive for COVID-19 PCR. Her clinical picture and radiology findings are all suggestive of COVID 19 pneumonia Continue dexamethasone (started 03/28). She has completed 5 day course of Remdesivir Patient received 1 dose of convalscent plasma In light of rapid deterioration and high CRP, patient was administered Tocilizumab 04/01. QuantiFERON gold test was ordered is indeterminate she has completed 5 day course of Rocephin and azithromycin - inflammatory markers trending down, - CRP is down to <0.5 (3) Multiple sclerosis: Code(s): G35 - Multiple sclerosis Status: Acute Assessment and Plan: currently not on any treatment (4) Hypothyroidism: Code(s): E03.9 - Hypothyroidism, unspecified Status: Acute Assessment and Plan: continue levothyroxine (5) Hyperglycemia: Code(s): R73.9 - Hyperglycemia, unspecified Status: Acute Assessment and Plan: sliding scale insulin (6) Sepsis: Code(s): A41.9 - Sepsis, unspecified organism Status: Acute Assessment and Plan: 04/08 patient with elevated WBC count, and will infiltrates on the chest x-ray, started patient on cefepime and vancomycin 04/10: Sputum cultures growing -04/09: urine culture: no growth -04/09: blood cultures Coag-negative staph 1/2 bottles. discontinue vancomycin. completed 7 day course of cefepime (7) Ileus: Code(s): K56.7 - Ileus, unspecified Status: Acute Assessment and Plan: patient has not had any significant issues with residuals earlier but04/14 she vomited couple of times. Tube feeds were held KUB showed Nonspecific bowel gas pattern. Moderate gas in the colon, possibly ileus. patient was started Reglan and Zofran on tube feeds and tolerating okay Additional Plan DVT prophylaxis - continue Lovenox Stress ulcer prophylaxis - PPI Nutrition - continue tube feeds Code Status - full code . Subjective Date/time seen: 04/18/21 10:29 Interval history: was noted to be febrile overnight. Remains on mechanical ventilation. She has tried a wean trial this morning however was tachypneic and is back on full support. She is heading towards tracheostomy Review of Systems Review of Systems: ROS unobtainable: Yes unobtainable due to endotracheal tube Exam Narrative: General: Pt is minimally awake on mechanical ventilation. She is in supine position Lungs/Chest: Trachea central Coarse BS B/L, diminished air entry at bases Cardiac: RRR. Normal S1 S2. No murmurs Circulation: Pedal pulses are intact and symmetrical. Abdomen: Decreased bowel sounds. Obese. Soft. NT. ND. Extremities: No clubbing, cyanosis or edema. Warm : Cas[place] in place Neurologic: patient is not following commands today off sedation Objective Data Vital Signs Vital Signs: Vital Signs - 24 hr 04/17/21 11:06 04/17/21 12:00 07
[2021-04-18 11:47] LABS: Glucose Point of Care 128 mg/dl (65-105)
[2021-04-18 18:15] LABS: Glucose Point of Care 160 mg/dl (65-105)
[2021-04-18 23:13] LABS: Glucose Point of Care 160 mg/dl (65-105)
[2021-04-19] VITALS (22 sets, daily range): BP systolic 98–156; BP diastolic 50–76; PULSE 76–97; RESP 13–25; TEMP 37.1–37.8; O2SAT 93–97
[2021-04-19 05:23] LABS: Alveolar/Arterial O2 Gradient 114.4 mmHg; Base Excess ABG 6.5 mEq/l (+/-2.0); Carboxyhemoglobin 0.3 % THb (0-2.0); Fractional Inspired Oxygen 35 %; HCO3 ABG 29.9 mEq/l (22.0-26.0); Methemoglobin ABG 0.4 %THb (0-1.5); Oxygen Content ABG 17.2 %vol (16.0-22.0); Oxygen Saturation ABG 97.5 % (95.0-100.0); Oxyhemoglobin 95.6 % THb (90.0-100.0); PCO2 ABG 38.6 mmHg (35.0-45.0); PO2 ABG 90.3 mmHg (80.0-100.0); PO2 FiO2 Ratio Arterial Blood 2.58 %; Reduced Hemoglobin 3.7 %THb (0-5.0); Total Hemoglobin 12.7 g/dL (12.0-18.0)
[2021-04-19 05:27] LABS: Device VENTILATOR; Modified Allen's Test Pass; Site Drawn LEFT RADIAL; pH ABG 7.507 (7.350-7.450)
[2021-04-19] MEDS: CENTRAL LINE FLUSH 10 ML IV PUSH ×3 (05:27→20:21)
[2021-04-19 05:28] LABS: Arterial Blood Gas PEEP 5 cmH2O; Arterial Blood Gas Tidal Volume 330 ml; Arterial Blood Gas Vent Mode CMV; Arterial Blood Gas Ventilator rate 25 /MIN
[2021-04-19] MEDS: LEVOTHYROXINE SODIUM 150 MCG TABLET PO (05:30)
[2021-04-19 05:38] LABS: Hematocrit 35.6 % (37.0-47.0); Hemoglobin 11.5 g/dL (12.0-15.0); Mean Corpuscular HGB Conc 32.3 g/dl (32-36); Mean Corpuscular Hemoglobin 30.2 pg (26-34); Mean Corpuscular Volume 93.4 fl (80-100); Mean Platelet Volume 10.8 fl (7.4-10.4); Platelet Count Result 165 k/mm3 (150-375); Red Blood Count 3.81 M/mm3 (4.2-5.4); Red Cell Distribution Width 15.1 % (11.5-14.5); White Blood Count 8.1 K/mm3 (4.5-10.0)
[2021-04-19 05:53] LABS: Alanine Aminotransferase 41 U/L (4-35); Albumin Level 3.3 g/dL (3.5-5.1); Alkaline Phosphatase 115 U/L (38-126); Anion Gap 5 mmol/L (8-16); Aspartate Amino Transferase 41 U/L (14-36); Bilirubin,Total 0.6 mg/dL (0.2-1.3); Blood Urea Nitrogen 14 mg/dL (7-17); Carbon Dioxide 30 mmol/L (22-30); Chloride 100 mmol/L (98-107); Estimated CRCL calculation 99 ml/min; Estimated Glomerular Filt Rate > 60; Glucose 147 mg/dL (65-110); Magnesium 2.2 mg/dL (1.6-2.3); Potassium 4.3 mmol/L (3.4-5.0); Sodium 135 mmol/L (137-145)
[2021-04-19] MEDS: METOPROLOL TARTRATE 25 MG TABLET PO ×2 (08:14→20:20)
[2021-04-19] MEDS: ENOXAPARIN 40 MG/0.4 ML SYRINGE SUB-Q ×2 (08:14→20:20)
[2021-04-19] MEDS: ATORVASTATIN 20 MG TABLET PO (08:14)
[2021-04-19] MEDS: PANTOPRAZOLE SODIUM IV 40 MG VIAL IV PUSH (08:15)
[2021-04-19] MEDS: MINERAL OIL/WHITE PETROLATUM OINTMENT 1 APPLIC EACH EYE ×2 (08:15→20:19)
[2021-04-19] MEDS: TOLNAFTATE 1% POWDER 45 GM BTL 1 APPLIC TOPICAL ×2 (08:15→20:21)
--- NOTE | 2021-04-19 08:47 | WPDINTPN ---
Progress Note: A&P Assessment and Plan (1) Acute respiratory failure with hypoxia: Code(s): J96.01 - Acute respiratory failure with hypoxia Status: Acute Assessment and Plan: Acute Respiratory failure secondary to COVID-19 pneumonia Aadmitted 03/28 BiPAP Intubated 04/05. patient was placed in prone position for many days - currently on FiO2 of 40% and peep of 5. ABGs and chest x-ray reviewed, - off Nimbex, fentanyl and Versed infusion - patient has not done well on PSV trials with either low respiratory rate or high RSBI. she was placed on a ASV which she does for some time but then tires out . will try PSV again today 08/23 PSV - today is day 134 of her intubation and she is no where close to extubation but has made progress over the past 2 weeks. I spoke to patient's yesterday and discussed options of tracheostomy. He agreed. I have consulted ENT and GI Bronchodilators Chest CTA was negative for PE and lower extremity Dopplers were negative for DVT (2) Pneumonia due to COVID-19 virus: Code(s): U07.1 - COVID-19; J12.82 - Pneumonia due to coronavirus disease 2019 Status: Acute Assessment and Plan: Although patient did get Rajan Rajan vaccine for COVID-19 she was tested positive for COVID-19 PCR. Her clinical picture and radiology findings are all suggestive of COVID 19 pneumonia Continue dexamethasone (started 03/28). She has completed 5 day course of Remdesivir Patient received 1 dose of convalscent plasma In light of rapid deterioration and high CRP, patient was administered Tocilizumab 04/01. QuantiFERON gold test was ordered is indeterminate she has completed 5 day course of Rocephin and azithromycin - inflammatory markers trending down, (3) Multiple sclerosis: Code(s): G35 - Multiple sclerosis Status: Acute Assessment and Plan: currently not on any treatment (4) Hypothyroidism: Code(s): E03.9 - Hypothyroidism, unspecified Status: Acute Assessment and Plan: continue levothyroxine (5) Hyperglycemia: Code(s): R73.9 - Hyperglycemia, unspecified Status: Acute Assessment and Plan: sliding scale insulin (6) Sepsis: Code(s): A41.9 - Sepsis, unspecified organism Status: Acute Assessment and Plan: 04/08 patient with elevated WBC count, and will infiltrates on the chest x-ray, started patient on cefepime and vancomycin 04/10: Sputum cultures growing -04/09: urine culture: no growth -04/09: blood cultures Coag-negative staph 1/2 bottles. completed 7 day course of cefepime WBC normal now (7) Ileus: Code(s): K56.7 - Ileus, unspecified Status: Acute Assessment and Plan: patient has not had any significant issues with residuals earlier but04/14 she vomited couple of times. Tube feeds were held KUB showed Nonspecific bowel gas pattern. Moderate gas in the colon, possibly ileus. patient was started Reglan and Zofran. Patient was also on MiraLax and Dulcolax now patient is having loose bowel movements hence will hold all. she has been tolerating tube feeds for last few days. continue at goal Additional Plan DVT prophylaxis - continue Lovenox Stress ulcer prophylaxis - PPI Nutrition - continue tube feeds Code Status - full code . 04/18 I spoke to patient's by phone today and updated him with patient's current status, continued need for mechanical ventilation and current treatment plan. I discussed options of tracheostomy and PEG tube. he is agreeable . I will consult GI and ENT Total Critical Care Time - 30 minutes Due to a high probability of clinically significant, life threatening deterioration, the patient required my highest level of preparedness to intervene emergently and I personally spent this critical care time directly and personally managing the patient. This critical care time included obtaining a history; examining the p
--- NOTE | 2021-04-19 09:17 | PM.IMPN ---
Progress Note: A&P Assessment and Plan (1) Acute respiratory failure with hypoxia: Code(s): J96.01 - Acute respiratory failure with hypoxia Status: Acute Assessment and Plan: Acute Respiratory failure secondary to COVID-19 pneumonia Aadmitted 03/28 BiPAP Intubated 04/05. patient was placed in prone position for many days - currently on FiO2 of 40% and peep of 5. ABGs and chest x-ray reviewed, - off Nimbex, fentanyl and Versed infusion - patient has not done well on PSV trials with either low respiratory rate or high RSBI. she was placed on a ASV which she does for some time but then tires out . will try PSV again today 08/23 PSV - today is day 134 of her intubation and she is no where close to extubation but has made progress over the past 2 weeks. I spoke to patient's yesterday and discussed options of tracheostomy. He agreed. I have consulted ENT and GI Bronchodilators Chest CTA was negative for PE and lower extremity Dopplers were negative for DVT 04/19/2020 Patient is still requiring oxygen and has failed to be weaned off. If continue to require oxygen patient will need trach. (2) Pneumonia due to COVID-19 virus: Code(s): U07.1 - COVID-19; J12.82 - Pneumonia due to coronavirus disease 2018 Status: Acute Assessment and Plan: Although patient did get Rajan Rajan vaccine for COVID-19 she was tested positive for COVID-19 PCR. Her clinical picture and radiology findings are all suggestive of COVID 19 pneumonia Continue dexamethasone (started 03/28). She has completed 5 day course of Remdesivir Patient received 1 dose of convalscent plasma In light of rapid deterioration and high CRP, patient was administered Tocilizumab 04/01. QuantiFERON gold test was ordered is indeterminate she has completed 5 day course of Rocephin and azithromycin - inflammatory markers trending down, 04/19/2021 Will continue with IV antibiotics. Chest x-ray still showing diffuse disease. (3) Multiple sclerosis: Code(s): G35 - Multiple sclerosis Status: Acute Assessment and Plan: currently not on any treatment (4) Hypothyroidism: Code(s): E03.9 - Hypothyroidism, unspecified Status: Acute Assessment and Plan: continue levothyroxine (5) Hyperglycemia: Code(s): R73.9 - Hyperglycemia, unspecified Status: Acute Assessment and Plan: sliding scale insulin (6) Sepsis: Code(s): A41.9 - Sepsis, unspecified organism Status: Acute Assessment and Plan: 04/08 patient with elevated WBC count, and will infiltrates on the chest x-ray, started patient on cefepime and vancomycin 04/10: Sputum cultures growing -04/09: urine culture: no growth -04/09: blood cultures Coag-negative staph 1/2 bottles. completed 7 day course of cefepime WBC normal now (7) Ileus: Code(s): K56.7 - Ileus, unspecified Status: Acute Assessment and Plan: patient has not had any significant issues with residuals earlier but04/14 she vomited couple of times. Tube feeds were held KUB showed Nonspecific bowel gas pattern. Moderate gas in the colon, possibly ileus. patient was started Reglan and Zofran. Patient was also on MiraLax and Dulcolax now patient is having loose bowel movements hence will hold all. she has been tolerating tube feeds for last few days. continue at goal Additional Plan DVT prophylaxis - continue Lovenox Stress ulcer prophylaxis - PPI Nutrition - continue tube feeds Code Status - full code . 04/18 I spoke to patient's by phone today and updated him with patient's current status, continued need for mechanical ventilation and current treatment plan. I discussed options of tracheostomy and PEG tube. he is agreeable . I will consult GI and ENT Total Critical Care Time - 30 minutes Due to a high probability of clinically significant, life threatening deterioration, the bernice
--- NOTE | 2021-04-19 11:39 | WPDGICN ---
Assessment and Plan Assessment and plan (1) Acute respiratory failure with hypoxia: Code(s): J96.01 - Acute respiratory failure with hypoxia Status: Acute Assessment and Plan: unfortunately she had severe COVID pneumonia with sepsis despite vaccine still requiring respiratory support in the ICU and remains intubated ENT will see patient for trach and we will proceed with G-tube placement for termination clerk feeding (2) Pneumonia due to COVID-19 virus: Code(s): U07.1 - COVID-19; J12.82 - Pneumonia due to coronavirus disease 2018 Status: Acute Assessment and Plan: treated by primary team (3) Sepsis with acute hypoxic respiratory failure: Code(s): A41.9 - Sepsis, unspecified organism; R65.20 - Severe sepsis without septic shock; J96.01 - Acute respiratory failure with hypoxia Status: Acute (4) Feeding difficulty: Code(s): R63.3 - Feeding difficulties Status: Acute Assessment and Plan: tolerating now tube feeding at goal by OGT (5) Multiple sclerosis: Code(s): G35 - Multiple sclerosis Status: Acute Assessment and Plan: with chronic weakness (6) Type 2 diabetes mellitus: Code(s): E11.9 - Type 2 diabetes mellitus without complications Status: Acute GI Consult Note Consult date/time: 04/19/21 11:39 HPI: Danielle Quesada is a 65 year old female with history of MS requiring assistance with ADLs (she has left hemiparesis), CAD, DM and other comorbidities who was admitted 03/28/21 with sepsis and COVID-19 pneumonia (treated previously with antibiotics when developed respiratory symptoms but then PCR was reactive), intubated and has remained in ICU. She received covid vaccine on November. She has been treated for sepsis, briefly had ileus but now she is tolerating tube feeding by OGT at 50 ml/h. She is off sedation and not requiring pressors. She still needs respiratory support and primary team asked ENT to place trach and also will need G-tube placement for detention feeding. Review of Systems Constitutional: Constitutional: Reports fatigue and Reports lethargy Eyes: Comments: blind left eye ENT: Reports Normal hearing present Cardiovascular: Cardiovascular: Denies pedal edema Respiratory: Respiratory: Reports dyspnea on exertion Gastrointestinal: Gastrointestinal: Denies hematochezia Genitourinary: Genitourinary: Denies hematuria Musculoskeletal: Musculoskeletal: Reports myalgias Comments: needs assistance with ADL due to MS Neurologic: Comments: h/o MS Psychiatric: Psychiatric: Denies behavioral changes ON LICENSE OF [facility] Past Medical History Medical History (Updated 04/19/21 @ 11:48 by Juan Alberto Mcdaniel MD) Coronary artery disease Inferior STEMI on 11/25/2017 Dyslipidemia Feeding difficulty Hypertension Hypothyroidism Multiple sclerosis Stopped responding to treatment. Dependent for most ADLs due to left hemiparesis. 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 Osteomyelitis Left femur following fracture. 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 Recurrent UTI Subarachnoid hemorrhage (2012) Angiogram negative. Type 2 diabetes mellitus Hemoglobin A1c was 6.1% in November 2020. Surgical History Surgical History History of bilateral cataract extraction History of cardiac catheterization (11/25/17) Balloon angioplasty with stent placement to the RCA and proximal LAD. History of creation of ventriculoperitoneal shunt History of dilation and curettage History of orthopedic surgery Knee arthroscopy. ORIF left femur fracture. History of thyroidectomy (1988) History of tonsillectomy History of tubal ligation Family History Family History Father Family history of diabetes mellitus in first degree relative Family history of heart disease in male family member before
[2021-04-19 11:53] LABS: Glucose Point of Care 166 mg/dl (65-105)
[2021-04-19 17:28] LABS: Glucose Point of Care 163 mg/dl (65-105)
--- NOTE | 2021-04-19 21:45 | PCRCNOTE ---
Flow sensor changed and calibrated. Filter and suction catheter changed. RN informed.
[2021-04-19 23:40] LABS: Glucose Point of Care 156 mg/dl (65-105)
[2021-04-20] VITALS (23 sets, daily range): BP systolic 123–149; BP diastolic 62–73; PULSE 65–100; RESP 11–24; TEMP 37.4–37.8; O2SAT 85–98
[2021-04-20] MEDS: CENTRAL LINE FLUSH 10 ML IV PUSH ×3 (06:01→21:18)
--- NOTE | 2021-04-20 06:04 | PM.IMPN ---
Progress Note: A&P Assessment and Plan (1) Acute respiratory failure with hypoxia: Code(s): J96.01 - Acute respiratory failure with hypoxia Status: Acute Assessment and Plan: Acute Respiratory failure secondary to COVID-19 pneumonia Aadmitted 03/28 BiPAP Intubated 04/05. patient was placed in prone position for many days - currently on FiO2 of 40% and peep of 5. ABGs and chest x-ray reviewed, - off Nimbex, fentanyl and Versed infusion - patient has not done well on PSV trials with either low respiratory rate or high RSBI. she was placed on a ASV which she does for some time but then tires out . will try PSV again today 08/23 PSV - today is day 134 of her intubation and she is no where close to extubation but has made progress over the past 2 weeks. I spoke to patient's yesterday and discussed options of tracheostomy. He agreed. I have consulted ENT and GI Bronchodilators Chest CTA was negative for PE and lower extremity Dopplers were negative for DVT 04/19/2020 Patient is still requiring oxygen and has failed to be weaned off. If continue to require oxygen patient will need trach. 04/20/2020 patient is still requiring oxygen and is on ventilator. Plan is to continue current treatment. Will try to wean off and if it fails will arrange trach. (2) Pneumonia due to COVID-19 virus: Code(s): U07.1 - COVID-19; J12.82 - Pneumonia due to coronavirus disease 2018 Status: Acute Assessment and Plan: Although patient did get Rajan Rajan vaccine for COVID-19 she was tested positive for COVID-19 PCR. Her clinical picture and radiology findings are all suggestive of COVID 19 pneumonia Continue dexamethasone (started 03/28). She has completed 5 day course of Remdesivir Patient received 1 dose of convalscent plasma In light of rapid deterioration and high CRP, patient was administered Tocilizumab 04/01. QuantiFERON gold test was ordered is indeterminate she has completed 5 day course of Rocephin and azithromycin - inflammatory markers trending down, 04/19/2021 Will continue with IV antibiotics. Chest x-ray still showing diffuse disease. (3) Multiple sclerosis: Code(s): G35 - Multiple sclerosis Status: Acute Assessment and Plan: currently not on any treatment (4) Hypothyroidism: Code(s): E03.9 - Hypothyroidism, unspecified Status: Acute Assessment and Plan: continue levothyroxine (5) Hyperglycemia: Code(s): R73.9 - Hyperglycemia, unspecified Status: Acute Assessment and Plan: sliding scale insulin (6) Sepsis: Code(s): A41.9 - Sepsis, unspecified organism Status: Acute Assessment and Plan: 04/08 patient with elevated WBC count, and will infiltrates on the chest x-ray, started patient on cefepime and vancomycin 04/10: Sputum cultures growing -04/09: urine culture: no growth -04/09: blood cultures Coag-negative staph 1/2 bottles. completed 7 day course of cefepime WBC normal now (7) Ileus: Code(s): K56.7 - Ileus, unspecified Status: Acute Assessment and Plan: patient has not had any significant issues with residuals earlier but04/14 she vomited couple of times. Tube feeds were held KUB showed Nonspecific bowel gas pattern. Moderate gas in the colon, possibly ileus. patient was started Reglan and Zofran. Patient was also on MiraLax and Dulcolax now patient is having loose bowel movements hence will hold all. she has been tolerating tube feeds for last few days. continue at goal Additional Plan DVT prophylaxis - continue Lovenox Stress ulcer prophylaxis - PPI Nutrition - continue tube feeds Code Status - full code . 04/18 I spoke to patient's by phone today and updated him with patient's current status, continued need for mechanical ventilation and current treatment plan. I discussed options of tracheostomy and PEG tube. he is agreeable
[2021-04-20 06:16] LABS: Alveolar/Arterial O2 Gradient 53.3 mmHg; Base Excess ABG 4.7 mEq/l (+/-2.0); Carboxyhemoglobin 0.3 % THb (0-2.0); Fractional Inspired Oxygen 30 %; HCO3 ABG 26.8 mEq/l (22.0-26.0); Methemoglobin ABG 0.3 %THb (0-1.5); Oxygen Content ABG 17.1 %vol (16.0-22.0); Oxygen Saturation ABG 98.8 % (95.0-100.0); Oxyhemoglobin 97.2 % THb (90.0-100.0); PCO2 ABG 31.9 mmHg (35.0-45.0); PO2 ABG 123.1 mmHg (80.0-100.0); Reduced Hemoglobin 2.2 %THb (0-5.0); Total Hemoglobin 12.4 g/dL (12.0-18.0)
[2021-04-20 06:17] LABS: pH ABG 7.543 (7.350-7.450)
[2021-04-20 06:18] LABS: Arterial Blood Gas PEEP 5 cmH2O; Arterial Blood Gas Vent Mode ASV; Device VENTILATOR; Modified Allen's Test Pass; Site Drawn RIGHT RADIAL
[2021-04-20 06:20] LABS: Hematocrit 33.5 % (37.0-47.0); Hemoglobin 11.3 g/dL (12.0-15.0); Mean Corpuscular HGB Conc 33.7 g/dl (32-36); Mean Corpuscular Volume 91.8 fl (80-100); Mean Platelet Volume 10.9 fl (7.4-10.4); Platelet Count Result 170 k/mm3 (150-375); Red Blood Count 3.65 M/mm3 (4.2-5.4); Red Cell Distribution Width 15.2 % (11.5-14.5); White Blood Count 5.8 K/mm3 (4.5-10.0)
[2021-04-20 06:30] LABS: Alanine Aminotransferase 42 U/L (4-35); Albumin Level 3.3 g/dL (3.5-5.1); Alkaline Phosphatase 107 U/L (38-126); Anion Gap 6 mmol/L (8-16); Aspartate Amino Transferase 40 U/L (14-36); Bilirubin,Total 0.8 mg/dL (0.2-1.3); Blood Urea Nitrogen 14 mg/dL (7-17); Carbon Dioxide 28 mmol/L (22-30); Chloride 100 mmol/L (98-107); Estimated CRCL calculation 99 ml/min; Estimated Glomerular Filt Rate > 60; Glucose 128 mg/dL (65-110); Magnesium 2.1 mg/dL (1.6-2.3); Potassium 4.1 mmol/L (3.4-5.0); Sodium 134 mmol/L (137-145)
[2021-04-20] MEDS: ATORVASTATIN 20 MG TABLET PO (08:32)
[2021-04-20] MEDS: TOLNAFTATE 1% POWDER 45 GM BTL 1 APPLIC TOPICAL ×2 (08:32→21:18)
[2021-04-20] MEDS: METOPROLOL TARTRATE 25 MG TABLET PO ×2 (08:32→21:18)
[2021-04-20] MEDS: PANTOPRAZOLE SODIUM IV 40 MG VIAL IV PUSH (08:32)
[2021-04-20] MEDS: MINERAL OIL/WHITE PETROLATUM OINTMENT 1 APPLIC EACH EYE ×2 (08:32→21:18)
[2021-04-20 09:34] LABS: Glucose Point of Care 124 mg/dl (65-105)
--- NOTE | 2021-04-20 09:48 | WPDINTPN ---
Progress Note: A&P Assessment and Plan (1) Acute respiratory failure with hypoxia: Code(s): J96.01 - Acute respiratory failure with hypoxia Status: Acute Assessment and Plan: Acute Respiratory failure secondary to COVID-19 pneumonia Aadmitted 03/28 BiPAP Intubated 04/05. patient was placed in prone position for many days - currently on FiO2 of 40% and peep of 5. ABGs and chest x-ray reviewed, - off Nimbex, fentanyl and Versed infusion - patient has not done well on PSV trials with either low respiratory rate or high RSBI. she was placed on a ASV which she does for some time but then tires out . will try PSV again today 08/23 PSV - today is day 13 of her intubation and she is no where close to extubation but has made progress over the past 2 weeks. I spoke to patient's yesterday and discussed options of tracheostomy. He agreed. I have consulted ENT and GI Bronchodilators Chest CTA was negative for PE and lower extremity Dopplers were negative for DVT (2) Pneumonia due to COVID-19 virus: Code(s): U07.1 - COVID-19; J12.82 - Pneumonia due to coronavirus disease 2019 Status: Acute Assessment and Plan: Although patient did get Rajan Rajan vaccine for COVID-19 she was tested positive for COVID-19 PCR. Her clinical picture and radiology findings are all suggestive of COVID 19 pneumonia Continue dexamethasone (started 03/28). She has completed 5 day course of Remdesivir Patient received 1 dose of convalscent plasma In light of rapid deterioration and high CRP, patient was administered Tocilizumab 04/01. QuantiFERON gold test was ordered is indeterminate she has completed 5 day course of Rocephin and azithromycin - inflammatory markers trending down, (3) Multiple sclerosis: Code(s): G35 - Multiple sclerosis Status: Acute Assessment and Plan: currently not on any treatment (4) Hypothyroidism: Code(s): E03.9 - Hypothyroidism, unspecified Status: Acute Assessment and Plan: continue levothyroxine (5) Hyperglycemia: Code(s): R73.9 - Hyperglycemia, unspecified Status: Acute Assessment and Plan: sliding scale insulin (6) Sepsis: Code(s): A41.9 - Sepsis, unspecified organism Status: Acute Assessment and Plan: 04/08 patient with elevated WBC count, and will infiltrates on the chest x-ray, started patient on cefepime and vancomycin 04/10: Sputum cultures growing -04/09: urine culture: no growth -04/09: blood cultures Coag-negative staph 1/2 bottles. completed 7 day course of cefepime WBC normal now (7) Ileus: Code(s): K56.7 - Ileus, unspecified Status: Acute Assessment and Plan: patient has not had any significant issues with residuals earlier but04/14 she vomited couple of times. Tube feeds were held KUB showed Nonspecific bowel gas pattern. Moderate gas in the colon, possibly ileus. patient was started Reglan and Zofran. Patient was also on MiraLax and Dulcolax now patient is having loose bowel movements hence will hold all. she has been tolerating tube feeds for last few days. continue at goal Additional Plan DVT prophylaxis - continue Lovenox Stress ulcer prophylaxis - PPI Nutrition - continue tube feeds Code Status - full code . I spoke to patient again regarding tracheostomy and she noded her head in agreement. I spoke to patient's again in detail by phone and updated him with patient's current status, continued need for mechanical ventilation and current treatment plan. I discussed options of tracheostomy and PEG tube again in detail. he is agreeable . I will consult GI and ENT Total Critical Care Time - 30 minutes Due to a high probability of clinically significant, life threatening deterioration, the patient required my highest level of preparedness to intervene emergently and I personally spent this critical care time directly an
--- NOTE | 2021-04-20 11:09 | PCDIET ---
Nutrition Follow-Up Complete: Nutrition Diagnosis: Inadequate oral intake related to pneumonia as evidenced by poor intake reported. Nutrition Goal: Meet estimated nutritional needs Goal in progress. Tube feedings on hold for PEG. NPO diet ordered. Last recorded weight is 101.4 kg which is down from last review. -I/O. Bowel Motility: BM x 2 on 04/19/21. Labs Reviewed: RBC (3.65), Hgb (11.3), Hct (33.5), Glu (128), Cr (0.6), Na (134), Alb (3.3) Meds Noted: Lipitor, Lopressor, Protonix, Ancef, Fentanyl, Miralax Additional Notes: Right wrist skin tear. No documented pressure sores. Will continue to monitor with same goal. Nutrition Monitoring and Evaluation: Will monitor every 3 days.
[2021-04-20] MEDS: PROPOFOL IV EMULSION 100 ML 12.17 MG IV CONT (13:32)
[2021-04-20 13:44] LABS: Glucose Point of Care 136 mg/dl (65-105)
[2021-04-20] MEDS: ENOXAPARIN 40 MG/0.4 ML SYRINGE SUB-Q (21:17)
[2021-04-21] VITALS (21 sets, daily range): BP systolic 105–136; BP diastolic 53–75; PULSE 62–98; RESP 11–25; TEMP 37.2–37.7; O2SAT 93–98
[2021-04-21 01:07] LABS: Glucose Point of Care 150 mg/dl (65-105)
[2021-04-21] MEDS: ACETAMINOPHEN 325 MG TABLET 650 MG PO (03:50)
[2021-04-21] MEDS: CENTRAL LINE FLUSH 10 ML IV PUSH ×3 (05:29→22:29)
[2021-04-21] MEDS: LEVOTHYROXINE SODIUM 150 MCG TABLET PO (05:30)
[2021-04-21 06:14] LABS: Glucose Point of Care 123 mg/dl (65-105)
[2021-04-21] MEDS: ATORVASTATIN 20 MG TABLET PO (08:07)
[2021-04-21] MEDS: MINERAL OIL/WHITE PETROLATUM OINTMENT 1 APPLIC EACH EYE ×2 (08:07→20:40)
[2021-04-21] MEDS: METOPROLOL TARTRATE 25 MG TABLET PO ×2 (08:07→20:40)
[2021-04-21] MEDS: TOLNAFTATE 1% POWDER 45 GM BTL 1 APPLIC TOPICAL ×2 (08:07→20:40)
[2021-04-21] MEDS: PANTOPRAZOLE SODIUM IV 40 MG VIAL IV PUSH (08:07)
[2021-04-21] MEDS: ENOXAPARIN 40 MG/0.4 ML SYRINGE SUB-Q ×2 (08:07→20:40)
[2021-04-21] MEDS: ALTEPLASE 2 MG VIAL (CATHFLO) IV PUSH (08:24)
--- NOTE | 2021-04-21 09:30 | WPDINTPN ---
Progress Note: A&P Assessment and Plan (1) Acute respiratory failure with hypoxia: Code(s): J96.01 - Acute respiratory failure with hypoxia Status: Acute Assessment and Plan: Acute Respiratory failure secondary to COVID-19 pneumonia Aadmitted 03/28 BiPAP Intubated 04/05. patient was placed in prone position for many days - currently on FiO2 of 40% and peep of 5. ABGs and chest x-ray reviewed, - off Nimbex, fentanyl and Versed infusion - patient has not done well on PSV trials with either low respiratory rate or high RSBI. she was placed on a ASV which she does for some time but then tires out . will try PSV again today 08/23 PSV -chest x-ray reviewed-withdraw ETT 2 cm - today is day 14 of her intubation and she is no where close to extubation but has made progress over the past 2 weeks. She is awaiting tracheostomy Bronchodilators Chest CTA was negative for PE and lower extremity Dopplers were negative for DVT (2) Pneumonia due to COVID-19 virus: Code(s): U07.1 - COVID-19; J12.82 - Pneumonia due to coronavirus disease 2019 Status: Acute Assessment and Plan: Although patient did get Rajan Rajan vaccine for COVID-19 she was tested positive for COVID-19 PCR. Her clinical picture and radiology findings are all suggestive of COVID 19 pneumonia Continue dexamethasone (started 03/28). She has completed 5 day course of Remdesivir Patient received 1 dose of convalscent plasma In light of rapid deterioration and high CRP, patient was administered Tocilizumab 04/01. QuantiFERON gold test was ordered is indeterminate she has completed 5 day course of Rocephin and azithromycin - inflammatory markers trending down, (3) Multiple sclerosis: Code(s): G35 - Multiple sclerosis Status: Acute Assessment and Plan: currently not on any treatment (4) Hypothyroidism: Code(s): E03.9 - Hypothyroidism, unspecified Status: Acute Assessment and Plan: continue levothyroxine (5) Hyperglycemia: Code(s): R73.9 - Hyperglycemia, unspecified Status: Acute Assessment and Plan: sliding scale insulin (6) Sepsis: Code(s): A41.9 - Sepsis, unspecified organism Status: Acute Assessment and Plan: 04/08 patient with elevated WBC count, and will infiltrates on the chest x-ray, started patient on cefepime and vancomycin 04/10: Sputum cultures growing -04/09: urine culture: no growth -04/09: blood cultures Coag-negative staph 1/2 bottles. completed 7 day course of cefepime WBC normal now (7) Ileus: Code(s): K56.7 - Ileus, unspecified Status: Acute Assessment and Plan: patient has not had any significant issues with residuals earlier but04/14 she vomited couple of times. Tube feeds were held KUB showed Nonspecific bowel gas pattern. Moderate gas in the colon, possibly ileus. patient was started Reglan and Zofran. Patient was also on MiraLax and Dulcolax now patient is having loose bowel movements hence will hold all. Bag tube was placed 04/20 tube feeds have been resumed Additional Plan DVT prophylaxis - continue Lovenox Stress ulcer prophylaxis - PPI Nutrition - continue tube feeds Code Status - full code . Patient awaits tracheostomy Total Critical Care Time - 31 minutes Due to a high probability of clinically significant, life threatening deterioration, the patient required my highest level of preparedness to intervene emergently and I personally spent this critical care time directly and personally managing the patient. This critical care time included obtaining a history; examining the patient; pulse oximetry; ordering and review of studies; arranging urgent treatment with development of a management plan; evaluation of patient's response to treatment; frequent reassessment; and discussions with other providers. It was exclusive of separately billable procedures and treating other p
--- NOTE | 2021-04-21 11:05 | PCDIET ---
Nutrition Follow-Up Complete: Nutrition Diagnosis: Inadequate oral intake related to pneumonia as evidenced by poor intake reported. Nutrition Goal: Meet estimated nutritional needs Goal in progress. RN reports patient tolerating Glucerna 1.2 at 50mL/hr goal rate with 30mL water flush every 4 hours. Last recorded weight is 101.1 kg which is stable with last review. Bowel Motility: Last documented BM on 04/19/21 x 2. Labs Reviewed: Glu (123) Meds Noted: Lipitor, Synthroid, Lopressor, Protonix Additional Notes: Right wrist with skin tear. Will continue to monitor with same goal. Nutrition Monitoring and Evaluation: Will monitor every Tuesday/Tuesday.
[2021-04-21 11:55] LABS: Glucose Point of Care 157 mg/dl (65-105)
--- NOTE | 2021-04-21 15:26 | WPDGIPROGNO ---
Progress Note: A&P Assessment and Plan (1) Pneumonia due to COVID-19 virus: Code(s): U07.1 - COVID-19; J12.82 - Pneumonia due to coronavirus disease 2019 Status: Acute Assessment and Plan: also soon will get trach, still dependent on mechanical ventilation (2) Acute respiratory failure with hypoxia: Code(s): J96.01 - Acute respiratory failure with hypoxia Status: Acute (3) Feeding difficulty: Code(s): R63.3 - Feeding difficulties Status: Acute Assessment and Plan: g-tube yesterday and she is tolerating tube feeding please call us if questions (4) Multiple sclerosis: Code(s): G35 - Multiple sclerosis Status: Acute (5) Type 2 diabetes mellitus: Code(s): E11.9 - Type 2 diabetes mellitus without complications Status: Acute Subjective Date/time seen: 04/21/21 15:26 Interval history: she is tolerating tube feeding at 50ml/h using G-tube, no new changes Review of Systems Review of Systems: All systems reviewed & are unremarkable except as noted in HPI and below Exam Const: Other: intubated but off sedation HENMT: General nose exam: Normal nares present Eyes: Sclera: sclerae normal Neck: Neck: supple Cardio: Rate: regular rate GI: GI Palp: Yes Soft to palpation and No Guarding due to palpation present (GI) Auscultation: normal bowel sounds Other: G-tube site look clean Skin: General skin exam: no rashes or lesions noted Neuro: Other: intubated, chronic left sided weakness, she is awake Extrem: General: normal to inspection Objective Data Vital Signs Vital Signs: Vital Signs - 24 hr 04/20/21 16:00 04/20/21 16:44 04/20/21 18:00 Temperature 99.9 F H 100 F H Pulse Rate 86 73 76 Respiratory Rate 22 H Blood Pressure 140/62 129/64 Pulse Oximetry 97 96 97 04/20/21 20:00 04/20/21 21:18 04/20/21 21:30 Temperature 99.7 F H Pulse Rate 95 80 77 Respiratory Rate 22 H Blood Pressure 143/65 H Pulse Oximetry 96 96 04/20/21 22:00 04/20/21 23:32 04/21/21 00:00 Temperature 99.8 F H 99.5 F Pulse Rate 80 94 86 Respiratory Rate 11 L 17 Blood Pressure 126/71 136/75 Pulse Oximetry 96 96 96 04/21/21 02:00 04/21/21 02:44 04/21/21 04:00 Temperature 99.6 F 98.9 F Pulse Rate 62 81 66 Respiratory Rate 12 11 L Blood Pressure 108/62 129/65 Pulse Oximetry 97 96 95 04/21/21 05:45 04/21/21 06:00 04/21/21 07:35 Temperature 99.4 F Pulse Rate 71 64 66 Respiratory Rate 11 L Blood Pressure 113/59 L Pulse Oximetry 95 95 94 04/21/21 08:00 04/21/21 08:07 04/21/21 10:00 Temperature 98.9 F Pulse Rate 76 75 83 Respiratory Rate 16 22 H Blood Pressure 125/56 L 105/53 L Pulse Oximetry 94 94 04/21/21 10:30 04/21/21 12:00 04/21/21 13:27 Temperature 99.8 F H Pulse Rate 75 65 75 Respiratory Rate 25 H Blood Pressure 115/67 Pulse Oximetry 94 94 94 Intake/Output Intake/Output: Intake & Output 04/18/21 04/19/21 04/20/21 04/21/21 23:59 23:59 23:59 23:59 Intake Total 1135 1271 517 323 Output Total 1350 1100 1600 250 Balance -215 171 -1083 73 Meds/Results Medications: Active Medications Generic Name Dose Route Start Last Admin Trade Name Freq PRN Reason Stop Dose Admin Acetaminophen 650 mg 04/02/21 10:03 04/21/21 03:50 Acetaminophen 325 Mg Tablet PO 650 mg Q4H PRN Administration Mild Pain (1-3) or Fever Alteplase, Recombinant 2 mg 04/21/21 08:02 04/21/21 08:24 Alteplase 2 Mg Vial (Cathflo) IV PUSH 2 mg ONCE PRN Administration Line Occlusion Atorvastatin Calcium 20 mg 03/29/21 09:00 04/21/21 08:07 Atorvastatin 20 Mg Tablet PO 20 mg DAILY LUCIUS Administration Dextrose 12.5 gm 03/28/21 13:41 Dextrose 50% 25 Gm/50 Ml Syringe IV PUSH PRN PRN Hypoglycemia Protocol Enoxaparin Sodium 40 mg 04/02/21 21:00 04/21/21 08:07 Enoxaparin 40 Mg/0.4 Ml Syringe SUB-Q 40 mg Q12H LUCIUS Administration Fentanyl Citrate 50 mcg
[2021-04-22] VITALS (22 sets, daily range): BP systolic 107–139; BP diastolic 45–64; PULSE 56–95; RESP 16–22; TEMP 37.1–37.6; O2SAT 96–100
[2021-04-22 05:04] LABS: Hematocrit 34.2 % (37.0-47.0); Hemoglobin 11.4 g/dL (12.0-15.0); Mean Corpuscular HGB Conc 33.3 g/dl (32-36); Mean Corpuscular Hemoglobin 31.2 pg (26-34); Mean Corpuscular Volume 93.7 fl (80-100); Mean Platelet Volume 10.2 fl (7.4-10.4); Platelet Count Result 218 k/mm3 (150-375); Red Blood Count 3.65 M/mm3 (4.2-5.4); Red Cell Distribution Width 15.5 % (11.5-14.5); White Blood Count 5.9 K/mm3 (4.5-10.0)
[2021-04-22 05:12] LABS: Alveolar/Arterial O2 Gradient 75.1 mmHg; Base Excess ABG 4.5 mEq/l (+/-2.0); Fractional Inspired Oxygen 30 %; HCO3 ABG 28.6 mEq/l (22.0-26.0); Methemoglobin ABG 0.5 %THb (0-1.5); Modified Allen's Test Pass; Oxygen Saturation ABG 97.4 % (95.0-100.0); Oxyhemoglobin 96.2 % THb (90.0-100.0); PCO2 ABG 40.6 mmHg (35.0-45.0); PO2 ABG 91.1 mmHg (80.0-100.0); PO2 FiO2 Ratio Arterial Blood 3.04 %; Reduced Hemoglobin 3.3 %THb (0-5.0); Site Drawn LEFT RADIAL; pH ABG 7.466 (7.350-7.450)
[2021-04-22 05:13] LABS: Arterial Blood Gas PEEP 5 cmH2O; Arterial Blood Gas Tidal Volume 360 ml; Arterial Blood Gas Vent Mode CMV; Arterial Blood Gas Ventilator rate 20 /MIN; Device VENTILATOR
[2021-04-22 05:20] LABS: Alanine Aminotransferase 40 U/L (4-35); Albumin Level 3.3 g/dL (3.5-5.1); Alkaline Phosphatase 109 U/L (38-126); Anion Gap 5 mmol/L (8-16); Aspartate Amino Transferase 36 U/L (14-36); Bilirubin,Total 0.5 mg/dL (0.2-1.3); Blood Urea Nitrogen 15 mg/dL (7-17); Calcium 9.2 mg/dL (8.4-10.2); Carbon Dioxide 30 mmol/L (22-30); Chloride 102 mmol/L (98-107); Estimated CRCL calculation 97 ml/min; Estimated Glomerular Filt Rate > 60; Glucose 141 mg/dL (65-110); Potassium 4.2 mmol/L (3.4-5.0); Sodium 137 mmol/L (137-145)
[2021-04-22 06:22] LABS: Glucose Point of Care 160 mg/dl (65-105)
[2021-04-22] MEDS: CENTRAL LINE FLUSH 10 ML IV PUSH ×3 (06:52→21:02)
[2021-04-22] MEDS: LEVOTHYROXINE SODIUM 150 MCG TABLET PO (06:53)
[2021-04-22 07:09] LABS: Glucose Point of Care 140 mg/dl (65-105)
[2021-04-22] MEDS: TOLNAFTATE 1% POWDER 45 GM BTL 1 APPLIC TOPICAL ×2 (09:22→20:55)
[2021-04-22] MEDS: ATORVASTATIN 20 MG TABLET PO (09:22)
[2021-04-22] MEDS: PANTOPRAZOLE SODIUM IV 40 MG VIAL IV PUSH (09:22)
[2021-04-22] MEDS: METOPROLOL TARTRATE 25 MG TABLET PO ×2 (09:22→20:55)
[2021-04-22] MEDS: MINERAL OIL/WHITE PETROLATUM OINTMENT 1 APPLIC EACH EYE ×2 (09:22→20:55)
[2021-04-22] MEDS: ENOXAPARIN 40 MG/0.4 ML SYRINGE SUB-Q ×2 (09:22→20:55)
--- NOTE | 2021-04-22 11:13 | WPDINTPN ---
Progress Note: A&P Assessment and Plan (1) Acute respiratory failure with hypoxia: Code(s): J96.01 - Acute respiratory failure with hypoxia Status: Acute Assessment and Plan: Acute Respiratory failure secondary to COVID-19 pneumonia Aadmitted 03/28 BiPAP Intubated 04/05. patient was placed in prone position for many days - currently on FiO2 of 40% and peep of 5. ABGs and chest x-ray reviewed, - off Nimbex, fentanyl and Versed infusion - patient has not done well on PSV trials with either low respiratory rate or high RSBI. she was placed on a ASV which she does for some time but then tires out . will try PSV again today 08/23 PSV -chest x-ray reviewed-withdraw ETT 2 cm -Bronchodilators -Chest CTA was negative for PE and lower extremity Dopplers were negative for DVT -PEG tube placed on 04/20/2021 -tracheostomy scheduled for 04/23/2021 (2) Pneumonia due to COVID-19 virus: Code(s): U07.1 - COVID-19; J12.82 - Pneumonia due to coronavirus disease 2019 Status: Acute Assessment and Plan: Although patient did get Rajan Rajan vaccine for COVID-19 she was tested positive for COVID-19 PCR. Her clinical picture and radiology findings are all suggestive of COVID 19 pneumonia Continue dexamethasone (started 03/28). She has completed 5 day course of Remdesivir Patient received 1 dose of convalscent plasma In light of rapid deterioration and high CRP, patient was administered Tocilizumab 04/01. QuantiFERON gold test was ordered is indeterminate she has completed 5 day course of Rocephin and azithromycin - inflammatory markers trending down, (3) Multiple sclerosis: Code(s): G35 - Multiple sclerosis Status: Acute Assessment and Plan: currently not on any treatment (4) Hypothyroidism: Code(s): E03.9 - Hypothyroidism, unspecified Status: Acute Assessment and Plan: continue levothyroxine (5) Hyperglycemia: Code(s): R73.9 - Hyperglycemia, unspecified Status: Acute Assessment and Plan: sliding scale insulin (6) Sepsis: Code(s): A41.9 - Sepsis, unspecified organism Status: Acute Assessment and Plan: 04/08 patient with elevated WBC count, and will infiltrates on the chest x-ray, started patient on cefepime and vancomycin 04/10: Sputum cultures growing Yeast -04/09: urine culture: no growth -04/09: blood cultures Coag-negative staph 1/2 bottles. completed 7 day course of cefepime WBC normal now (7) Ileus: Code(s): K56.7 - Ileus, unspecified Status: Acute Assessment and Plan: patient has not had any significant issues with residuals earlier but04/14 she vomited couple of times. Tube feeds were held KUB showed Nonspecific bowel gas pattern. Moderate gas in the colon, possibly ileus. patient was started Reglan and Zofran. Patient was also on MiraLax and Dulcolax now patient is having loose bowel movements hence will hold all. Peg tube was placed 04/20 tube feeds have been resumed Additional Plan DVT prophylaxis - continue Lovenox Stress ulcer prophylaxis - PPI Nutrition - continue tube feeds Code Status - full code . Tracheostomy scheduled for 04/23/2021 Total Critical Care Time - 32 minutes Due to a high probability of clinically significant, life threatening deterioration, the patient required my highest level of preparedness to intervene emergently and I personally spent this critical care time directly and personally managing the patient. This critical care time included obtaining a history; examining the patient; pulse oximetry; ordering and review of studies; arranging urgent treatment with development of a management plan; evaluation of patient's response to treatment; frequent reassessment; and discussions with other providers. It was exclusive of separately billable procedures and treating other patients and teaching time. Please see Assessment and Plan
--- NOTE | 2021-04-22 11:45 | PCDIET ---
ICU Rounding Note: Patient tolerating Glucerna 1.2 at 50mL/hr with 30mL water flush every 4 hours. Last recorded weight is 102.1kg which is increased from last review, but down from admission. Bowel Motility: Last documented BM on 04/19/21 x 2. Labs Reviewed: RBC (3.65), Hgb (11.4), Hct (34.2), Glu (141), Cr (0.6), Alb (3.3) Meds Noted: Lipitor, Protonix, Synthroid, Reglan, Lopressor Additional Notes: Plan for tracheostomy on 04/23/21. Right wrist with skin tear. Following daily in ICU rounds. Assessing/reassessing every Tuesday/Tuesday.
--- NOTE | 2021-04-22 14:50 | WPDANESEPPF ---
Anes - Initial Pre Proc Eval Procedure: Operation Date: 04/20/21 13:00 Proposed Procedures p Percutaneous Endoscopic Gastrostomy - Juan Alberto Mcdaniel MD Operation Date: 04/23/21 12:00 Proposed Procedures p Tracheostomy - Keanu Moyer MD Date/Time: 04/22/21 14:50 Surgeon: Farshad Mejias MD Pre Op Diagnosis: Sepsis/Pneumonia/Respiratory failure Patient Data Age: 65 Gender: F Height: 1.68 m Weight: 102.1 kg Last Vital Signs Temp 37.4 C 04/22/21 12:00 Pulse 83 04/22/21 14:22 Resp 22 H 04/22/21 12:00 BP 125/63 04/22/21 12:00 Pulse Ox 96 04/22/21 14:22 Allergies Allergy/AdvReac Type Severity Reaction Status Date / Time ciprofloxacin Allergy Unknown Unknown Verified 03/28/21 09:26 Home Medications Medication Instructions Recorded Confirmed Type atorvastatin 10 mg tablet 20 mg PO DAILY tablet 12/05/20 03/28/21 History calcium carbonate 600 mg (1,500 1 tablet PO DAILY tablet 12/05/20 03/28/21 History mg)-vitamin D3 400 unit tablet levothyroxine 150 mcg tablet 150 mcg PO QAM #90 tablet 12/05/20 03/28/21 Rx metformin 500 mg tablet,extended 500 mg PO BID #180 tablet 12/05/20 03/28/21 Rx release 24 hr cefdinir 300 mg PO Q12H #14 cap 03/25/21 03/28/21 Rx azithromycin 250 mg PO DAILY 03/28/21 03/28/21 History isosorbide mononitrate 30 mg PO DAILY 03/28/21 03/28/21 History Laboratory Tests 04/22/21 04/22/21 04/22/21 00:08 04:38 04:43 WBC 5.9 K/mm3 K/mm3 (4.5-10.0) RBC 3.65 M/mm3 L M/mm3 (4.2-5.4) Hgb 11.4 g/dL L g/dL (12.0-15.0) Hct 34.2 % L % (37.0-47.0) MCV 93.7 fl fl (80-100) MCH 31.2 pg pg (26-34) MCHC 33.3 g/dl g/dl (32-36) RDW 15.5 % H % (11.5-14.5) Plt Count 218 k/mm3 k/mm3 (150-375) MPV 10.2 fl fl (7.4-10.4) Puncture Site Left radial ABG pH 7.466 H (7.350-7.450) ABG pCO2 40.6 mmHg mmHg (35.0-45.0) ABG pO2 91.1 mmHg mmHg (80.0-100.0) ABG PO2/FiO2 Ratio 3.04 % % ABG HCO3 28.6 mEq/l H mEq/l (22.0-26.0) ABG O2 Saturation 97.4 % % (95.0-100.0) ABG O2 Content 19.0 %vol %vol (16.0-22.0) ABG Base Excess 4.5 mEq/l mEq/l (+/-2.0) A-a Gradient 75.1 mmHg mmHg Oxyhemoglobin 96.2 % THb % THb (90.0-100.0) Carboxyhemoglobin 0.0 % THb % THb (0-2.0) Methemoglobin 0.5 %THb %THb (0-1.5) Reduced Hemoglobin 3.3 %THb %THb (0-5.0) Total Hemoglobin 14.0 g/dL g/dL (12.0-18.0) O2 Delivery Device Ventilator O2 Liters/Min Not Reportable Minute Volume Not Reportable Vent Rate 20 /MIN /MIN Vent Mode Cmv FiO2 30 % % Tidal Volume 360 ml ml PEEP 5 cmH2O cmH2O Peak Inspir Pressure Not Reportable Pressure Support Not Reportable Sodium Potassium Chloride Carbon Dioxide Anion Gap BUN Creatinine Estim Creat Clear Calc Estimated GFR Glucose POC Capillary Glucose 160 mg/dl H mg/dl (65-105) Calcium Magnesium Total Bilirubin AST ALT Alkaline Phosphatase Total Protein Albumin 04/22/21 04/22/21 04:43 06:48 WBC RBC Hgb Hct MCV MCH MCHC RDW Plt Count MPV Puncture Site ABG pH ABG pCO2 ABG pO2 ABG PO2/FiO2 Ratio ABG HCO3 ABG O2 Saturation ABG O2 Content ABG Base Excess A-a Gradient Oxyhemoglobin Carboxyhemoglobin Methemoglobin Reduced Hem
[2021-04-22 18:05] LABS: Glucose Point of Care 149 mg/dl (65-105)
[2021-04-23] VITALS (23 sets, daily range): BP systolic 111–146; BP diastolic 45–73; PULSE 57–95; RESP 12–24; TEMP 36.8–37.8; O2SAT 94–100
[2021-04-23 00:20] LABS: Glucose Point of Care 137 mg/dl (65-105)
[2021-04-23 05:18] LABS: Alveolar/Arterial O2 Gradient 74.9 mmHg; Base Excess ABG 5.1 mEq/l (+/-2.0); Fractional Inspired Oxygen 30 %; HCO3 ABG 28.3 mEq/l (22.0-26.0); Oxygen Saturation ABG 97.9 % (95.0-100.0); PCO2 ABG 36.7 mmHg (35.0-45.0); PO2 ABG 95.9 mmHg (80.0-100.0); Total Hemoglobin 12.5 g/dL (12.0-18.0)
[2021-04-23 05:22] LABS: Device VENTILATOR; Modified Allen's Test Pass; Site Drawn LEFT RADIAL; pH ABG 7.505 (7.350-7.450)
[2021-04-23 05:23] LABS: Arterial Blood Gas PEEP 5 cmH2O; Arterial Blood Gas Tidal Volume 360 ml; Arterial Blood Gas Vent Mode CMV; Arterial Blood Gas Ventilator rate 20 /MIN
[2021-04-23 05:24] LABS: Hemoglobin 11.1 g/dL (12.0-15.0); Mean Corpuscular HGB Conc 32.6 g/dl (32-36); Mean Corpuscular Hemoglobin 30.6 pg (26-34); Mean Corpuscular Volume 93.7 fl (80-100); Mean Platelet Volume 10.1 fl (7.4-10.4); Platelet Count Result 226 k/mm3 (150-375); Red Blood Count 3.63 M/mm3 (4.2-5.4); Red Cell Distribution Width 15.3 % (11.5-14.5); White Blood Count 5.6 K/mm3 (4.5-10.0)
[2021-04-23 05:33] LABS: Anion Gap 1 mmol/L (8-16); Blood Urea Nitrogen 12 mg/dL (7-17); Calcium 8.9 mg/dL (8.4-10.2); Carbon Dioxide 31 mmol/L (22-30); Chloride 104 mmol/L (98-107); Estimated CRCL calculation 98 ml/min; Estimated Glomerular Filt Rate > 60; Glucose 122 mg/dL (65-110); Potassium 3.9 mmol/L (3.4-5.0); Sodium 136 mmol/L (137-145)
--- NOTE | 2021-04-23 06:12 | WPDCN ---
HPI Data of Consult Date/Time: 04/23/21 06:12 Requesting Physician: Farshad Mejias MD Primary Care Provider: Lynda Bob MD Consult Narrative Narrative: Danielle Quesada is a 65 year old female prolonged intubation in the ICU for tracheotomy [facility] Past Medical History Medical History (Updated 04/19/21 @ 11:48 by Juan Alberto Mcdaniel MD) Coronary artery disease Inferior STEMI on 11/25/2017 Dyslipidemia Feeding difficulty Hypertension Hypothyroidism Multiple sclerosis Stopped responding to treatment. Dependent for most ADLs due to left hemiparesis. 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 Osteomyelitis Left femur following fracture. 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 Recurrent UTI Subarachnoid hemorrhage (2012) Angiogram negative. Type 2 diabetes mellitus Hemoglobin A1c was 6.1% in November 2020. Surgical History Surgical History History of bilateral cataract extraction History of cardiac catheterization (11/25/17) Balloon angioplasty with stent placement to the RCA and proximal LAD. History of creation of ventriculoperitoneal shunt History of dilation and curettage History of orthopedic surgery Knee arthroscopy. ORIF left femur fracture. History of thyroidectomy (1988) History of tonsillectomy History of tubal ligation Family History Family History Father Family history of diabetes mellitus in first degree relative Family history of heart disease in male family member before age 55 Mother Family history of diabetes mellitus in first degree relative Other Family history of tuberculosis Social History Social History Social History: Surrogate decision maker: Yonas Quesada, spouse. Code status: Full code. Smoking packs per day: 1 Smoking cigarettes per day: 20.0 Years smoked: 20 Smoking pack-years: 20.00 Smoking status: Former smoker Tobacco type: cigarettes Second hand tobacco smoke exposure: No Smoking end date: 09/19/05 Alcohol intake: current Alcohol use details: Rare alcohol use. Substance use: never Substance use type: does not use Additional living arrangements comments: Lives with in [place]. Spiritual care concerns: No Meds Home Medications and Allergies Home Medications Medication Instructions Recorded Confirmed Type atorvastatin 10 mg tablet 20 mg PO DAILY tablet 12/05/20 03/28/21 History calcium carbonate 600 mg (1,500 1 tablet PO DAILY tablet 12/05/20 03/28/21 History mg)-vitamin D3 400 unit tablet levothyroxine 150 mcg tablet 150 mcg PO QAM #90 tablet 12/05/20 03/28/21 Rx metformin 500 mg tablet,extended 500 mg PO BID #180 tablet 12/05/20 03/28/21 Rx release 24 hr cefdinir 300 mg PO Q12H #14 cap 03/25/21 03/28/21 Rx azithromycin 250 mg PO DAILY 03/28/21 03/28/21 History isosorbide mononitrate 30 mg PO DAILY 03/28/21 03/28/21 History Allergies Allergy/AdvReac Type Severity Reaction Status Date / Time ciprofloxacin Allergy Unknown Unknown Verified 03/28/21 09:26 Vital Signs Vital Signs - 24 hr 04/22/21 08:00 04/22/21 08:15 04/22/21 09:22 Temperature 37.3 C Pulse Rate 78 78 82 Respiratory Rate 22 H Blood Pressure 137/64 Pulse Oximetry 96 100 04/22/21 10:00 04/22/21 11:30 04/22/21 12:00 Temperature 37.5 C 37.4 C Pulse Rate 87 85 95 Respiratory Rate 22 H 22 H Blood Pressure 129/63 125/63 Pulse Oximetry 100 96 97 04/22/21 14:00 04/22/21 14:22 04/22/21 14:50 Temperature 37.4 C Pulse Rate 61 83 65 Respiratory Rate 22 H Blood Pressure 127/60 Pulse Oximetry 96 100 04/22/21 16:00 04/22/21 17:29 04/22/21 18:00 Temperature Pulse Rate 72 89 61 Respiratory Rate Blood Pressure Pulse Oximetry 97 97 04/22/21 20:00 04/22/21 2
[2021-04-23] MEDS: LEVOTHYROXINE SODIUM 150 MCG TABLET PO (06:18)
[2021-04-23] MEDS: CENTRAL LINE FLUSH 10 ML IV PUSH ×3 (06:18→20:36)
[2021-04-23] MEDS: ATORVASTATIN 20 MG TABLET PO (08:26)
[2021-04-23] MEDS: METOPROLOL TARTRATE 25 MG TABLET PO ×2 (08:26→20:33)
[2021-04-23] MEDS: TOLNAFTATE 1% POWDER 45 GM BTL 1 APPLIC TOPICAL ×2 (08:27→20:35)
[2021-04-23] MEDS: PANTOPRAZOLE SODIUM IV 40 MG VIAL IV PUSH (08:27)
[2021-04-23 08:39] LABS: INR 0.9; Partial Thromboplastin Time 27.5 SECONDS (22.3-36.8); Prothrombin Time 12.3 Seconds (11.1-14.7)
[2021-04-23] MEDS: LIDO 1%/EPINEPHRINE 1:100,000 20 ML VIAL 3 ML INFILTRATE (11:40)
--- NOTE | 2021-04-23 12:03 | PCDIET ---
Nutrition Follow-Up Complete: Nutrition Diagnosis: Inadequate oral intake related to pneumonia as evidenced by poor intake reported. Nutrition Goal: Meet estimated nutritional needs Goal in progress. Tube feedings currently on hold for trach. Previously tolerating well without reported issues. Expect tube feedings to resume later today once procedure complete. Last recorded weight is 103.4 kg which is increased from last review. Bowel Motility: Last documented BM on 04/22/21 x 1. Labs Reviewed: RBC (3.63), Hgb (11.1), Hct (34.0), Glu (122), Cr (0.6), Na (136) Meds Noted: Lipitor, Synthroid, Lopressor, Protonix, LR at 30mL/hr Additional Notes: Right wrist with skin tear. Will continue to monitor with same goal. Nutrition Monitoring and Evaluation: Will monitor every Tuesday/Tuesday.
--- NOTE | 2021-04-23 12:08 | WPDINTPN ---
Progress Note: A&P Assessment and Plan (1) Acute respiratory failure with hypoxia: Code(s): J96.01 - Acute respiratory failure with hypoxia Status: Acute Assessment and Plan: Acute Respiratory failure secondary to COVID-19 pneumonia Aadmitted 03/28 BiPAP Intubated 04/05. patient was placed in prone position for many days - currently on FiO2 of 40% and peep of 5. ABGs and chest x-ray reviewed, - off Nimbex, fentanyl and Versed infusion - patient has not done well on PSV trials with either low respiratory rate or high RSBI. she was placed on a ASV which she does for some time but then tires out . will try PSV again today 08/23 PSV -chest x-ray reviewed-withdraw ETT 2 cm -Bronchodilators -Chest CTA was negative for PE and lower extremity Dopplers were negative for DVT -PEG tube placed on 04/20/2021 -tracheostomy scheduled for today, 04/23/2021 (2) Pneumonia due to COVID-19 virus: Code(s): U07.1 - COVID-19; J12.82 - Pneumonia due to coronavirus disease 2019 Status: Acute Assessment and Plan: Although patient did get Rajan Rajan vaccine for COVID-19 she was tested positive for COVID-19 PCR. Her clinical picture and radiology findings are all suggestive of COVID 19 pneumonia Continue dexamethasone (started 03/28). She has completed 5 day course of Remdesivir Patient received 1 dose of convalscent plasma In light of rapid deterioration and high CRP, patient was administered Tocilizumab 04/01. QuantiFERON gold test was ordered is indeterminate she has completed 5 day course of Rocephin and azithromycin - inflammatory markers trending down, (3) Multiple sclerosis: Code(s): G35 - Multiple sclerosis Status: Acute Assessment and Plan: currently not on any treatment (4) Hypothyroidism: Code(s): E03.9 - Hypothyroidism, unspecified Status: Acute Assessment and Plan: continue levothyroxine (5) Hyperglycemia: Code(s): R73.9 - Hyperglycemia, unspecified Status: Acute Assessment and Plan: sliding scale insulin (6) Sepsis: Code(s): A41.9 - Sepsis, unspecified organism Status: Acute Assessment and Plan: 04/08 patient with elevated WBC count, and will infiltrates on the chest x-ray, started patient on cefepime and vancomycin 04/10: Sputum cultures growing Yeast -04/09: urine culture: no growth -04/09: blood cultures Coag-negative staph 1/2 bottles. completed 7 day course of cefepime WBC normal now (7) Ileus: Code(s): K56.7 - Ileus, unspecified Status: Acute Assessment and Plan: patient has not had any significant issues with residuals earlier but04/14 she vomited couple of times. Tube feeds were held KUB showed Nonspecific bowel gas pattern. Moderate gas in the colon, possibly ileus. patient was started Reglan and Zofran. Patient was also on MiraLax and Dulcolax now patient is having loose bowel movements hence will hold all. Peg tube was placed 04/20 tube feeds have been resumed, currently on hold for tracheostomy Additional Plan DVT prophylaxis - continue Lovenox Stress ulcer prophylaxis - PPI Nutrition - continue tube feeds, currently on hold for tracheostomy Code Status - full code . Discussed with in the room on 04/22/2021 with the patient. I explained to them regarding the tracheostomy and LTAC placement and answered all his questions. They were satisfied and agreeable with the tracheostomy at this time. Total Critical Care Time: 34 minutes This dictation may have been done utilizing a voice recognition system. Attempts have been made to correct errors. However, there may be uncorrected grammatical, spelling, and recognition errors present. Due to a high probability of clinically significant, life threatening deterioration, the patient required my highest level of preparedness to intervene emergently and I personally spent this critical care
[2021-04-23] MEDS: fentaNYL CITRATE INJ (*CRX) 100 MCG/2 ML VIAL 50 MCG IV PUSH (12:41)
[2021-04-23 12:47] LABS: Glucose Point of Care 134 mg/dl (65-105)
[2021-04-23 17:27] LABS: Glucose Point of Care 112 mg/dl (65-105)
--- NOTE | 2021-04-23 18:19 | PM.IMPN ---
Progress Note: A&P Assessment and Plan (1) Acute respiratory failure with hypoxia: Code(s): J96.01 - Acute respiratory failure with hypoxia Status: Acute Assessment and Plan: 04/23/21 18:19 04/10 patient remains on ventilator currently prone position, today's ABG showed hypercapnic with a pCO2 70 pH of 7.19, vent is adjusted by field service rep and savannah will continue to monitor. 04/11 today patient is in supine position sedated with fentanyl, versed and Nimbex remains intubated seen by rebecca and savannah. 04/12 today patient is in supine position sedated with fentanyl, versed and Nimbex remains intubated, RACHAEL field service rep patient being diuresed may help with ventilation will continue to monitor savannah field service rep. 04/13 patient remains on ventilator today patient is off Nimbex, and Versed, on fentanyl 25 micrograms/hour infusion, patient remained unresponsive to stimuli, patient seen field service rep and savannah 04/23 patient was not able to weaned off the ventilator and was seen ENT and trach was placed, patient remains clinically stable, seen by field service rep and savannah, patient will be transferred to LTAC soon. (2) Pneumonia: Code(s): J18.9 - Pneumonia, unspecified organism Status: Acute Assessment and Plan: upon arrival patient had worsening community-acquired pneumonia has been treated (3) Hypertension: Code(s): I10 - Essential (primary) hypertension Status: Acute Assessment and Plan: on home regimen tolerate (4) Hypothyroidism: Code(s): E03.9 - Hypothyroidism, unspecified Status: Acute Assessment and Plan: home regimen (5) Type 2 diabetes mellitus: Code(s): E11.9 - Type 2 diabetes mellitus without complications Status: Acute Assessment and Plan: on sliding scale and monitor Subjective Date/time seen: 04/23/21 18:19 04/10 patient remains on ventilator currently prone position, today's ABG showed hypercapnic with a pCO2 70 pH of 7.19, vent is adjusted by field service rep and savannah will continue to monitor. 04/11 today patient is in supine position sedated with fentanyl, versed and Nimbex remains intubated seen by lorena. 04/12 today patient is in supine position sedated with fentanyl, versed and Nimbex remains intubated, RACHAEL field service rep patient being diuresed may help with ventilation will continue to monitor appreciate field service rep. 04/13 patient remains on ventilator today patient is off Nimbex, and Versed, on fentanyl 25 micrograms/hour infusion, patient remained unresponsive to stimuli, patient seen field service rep and appreciate 04/23 patient was not able to weaned off the ventilator and was seen ENT and trach was placed, patient remains clinically stable, seen by field service rep and appreciate, patient will be transferred to LTAC soon. Review of Systems Review of Systems: ROS unobtainable: Yes unobtainable due to medical condition Exam Narrative: Patient is comfortable, NAD HEENT: eyes are clear and none icteric, trach in place LUNGS: normal respiratory efforts ABD: moderately distended Lower extremities: no edema SKIN: nonjaundiced Neuro: patient is quite somnolent. Objective Data Vital Signs Vital Signs: Vital Signs - 24 hr 04/22/21 20:00 04/22/21 20:55 04/22/21 22:00 Temperature 99.4 F 99.6 F Pulse Rate 73 94 67 Respiratory Rate 17 17 Blood Pressure 116/49 L 107/45 L Pulse Oximetry 100 99 04/22/21 23:10 04/23/21 00:00 04/23/21 02:00 Temperature 99.2 F 98.8 F Pulse Rate 63 75 71 Respiratory Rate 21 H 20 Blood Pressure 123/56 L 132/62 Pulse Oximetry 99 95 97 04/23/21 03:22 04/23/21 04:00 04/23/21 05:05 Temperature 99.0 F Pulse Rate 64 80 57 L Respiratory Rate 20 Blood Pressure 119/45 L Pulse Oximetry 97 97 100 04/23/21 06:00 04/23/21 07:50 04/23/21 08:00 Temperature 99.3 F 99.2 F Pulse Rate 64 63 63 Respiratory Rate 20 12 Blood P
[2021-04-23] MEDS: ENOXAPARIN 40 MG/0.4 ML SYRINGE SUB-Q (20:35)
[2021-04-23] MEDS: MINERAL OIL/WHITE PETROLATUM OINTMENT 1 APPLIC EACH EYE (20:35)
[2021-04-23 23:12] LABS: Glucose Point of Care 151 mg/dl (65-105)
[2021-04-23] MEDS: ACETAMINOPHEN 325 MG TABLET 650 MG PO (23:25)
[2021-04-23] MEDS: LORazepam INJ (*CRX) 2 MG/ML VIAL IV PUSH (23:25)
[2021-04-24] VITALS (11 sets, daily range): BP systolic 109–138; BP diastolic 59–67; PULSE 74–93; RESP 20–22; TEMP 37.4–37.6; O2SAT 95–98
[2021-04-24] MEDS: fentaNYL CITRATE INJ (*CRX) 100 MCG/2 ML VIAL 50 MCG IV PUSH (05:21)
[2021-04-24 05:46] LABS: Alveolar/Arterial O2 Gradient 93.9 mmHg; Base Excess ABG 3.7 mEq/l (+/-2.0); Carboxyhemoglobin 0.2 % THb (0-2.0); Device VENTILATOR; Fractional Inspired Oxygen 30 %; HCO3 ABG 26.8 mEq/l (22.0-26.0); Methemoglobin ABG 0.4 %THb (0-1.5); Modified Allen's Test Pass; Oxygen Content ABG 20.3 %vol (16.0-22.0); Oxygen Saturation ABG 96.5 % (95.0-100.0); Oxyhemoglobin 94.7 % THb (90.0-100.0); PCO2 ABG 35.5 mmHg (35.0-45.0); PO2 ABG 78.3 mmHg (80.0-100.0); PO2 FiO2 Ratio Arterial Blood 2.61 %; Reduced Hemoglobin 4.7 %THb (0-5.0); Site Drawn RIGHT RADIAL; Total Hemoglobin 15.2 g/dL (12.0-18.0); pH ABG 7.495 (7.350-7.450)
[2021-04-24 05:47] LABS: Arterial Blood Gas PEEP 5 cmH2O; Arterial Blood Gas Tidal Volume 360 ml; Arterial Blood Gas Vent Mode CMV; Arterial Blood Gas Ventilator rate 20 /MIN
[2021-04-24] MEDS: CENTRAL LINE FLUSH 10 ML IV PUSH (06:21)
[2021-04-24] MEDS: LEVOTHYROXINE SODIUM 150 MCG TABLET PO (06:21)
[2021-04-24 06:24] LABS: Glucose Point of Care 137 mg/dl (65-105)
[2021-04-24] MEDS: TOLNAFTATE 1% POWDER 45 GM BTL 1 APPLIC TOPICAL (09:15)
[2021-04-24] MEDS: ENOXAPARIN 40 MG/0.4 ML SYRINGE SUB-Q (09:15)
[2021-04-24] MEDS: PANTOPRAZOLE SODIUM IV 40 MG VIAL IV PUSH (09:15)
[2021-04-24] MEDS: METOPROLOL TARTRATE 25 MG TABLET PO (09:15)
--- NOTE | 2021-04-24 10:01 | W.PM.PROC2 ---
Procedure Note - Detailed Date of Procedure 04/24/21 Pre-op Diagnosis Sepsis/Pneumonia/Respiratory failure Post-op Diagnosis same Procedure Performed trach performed Surgeon Keanu Moyer MD Description of Procedure trach performed Urine Output 100
--- NOTE | 2021-04-24 10:08 | WPDANESPN ---
Anes - Prog Note Post-Op Date/Time: 04/24/21 10:08 Cardiovascular status: normal Respiratory status: other (Trach) Airway patency: other (see above) Mental status: other (TRISTIN) Post-Op hydration status: normal Vital Signs: Last Vital Signs Temp 99.6 F 04/24/21 06:00 Pulse 87 04/24/21 09:22 Resp 20 04/24/21 06:00 BP 123/65 04/24/21 06:00 Pulse Ox 98 04/24/21 09:22 Pain Score (VAS): 0/10 TRISTIN I/O: Intake & Output 04/23/21 04/24/21 04/24/21 23:59 07:59 15:59 Intake Total 173 548 Output Total 500 300 100 Balance -327 248 -100 Laboratory Tests 04/23/21 05:14 04/23/21 05:14 04/23/21 04/23/21 04/23/21 12:45 17:20 23:08 Puncture Site ABG pH ABG pCO2 ABG pO2 ABG PO2/FiO2 Ratio ABG HCO3 ABG O2 Saturation ABG O2 Content ABG Base Excess A-a Gradient Oxyhemoglobin Carboxyhemoglobin Methemoglobin Reduced Hemoglobin Total Hemoglobin O2 Delivery Device O2 Liters/Min Minute Volume Vent Rate Vent Mode FiO2 Tidal Volume PEEP Peak Inspir Pressure Pressure Support POC Capillary Glucose 134 H 112 H 151 H 04/24/21 04/24/21 05:27 06:19 Puncture Site Right radial ABG pH 7.495 H ABG pCO2 35.5 ABG pO2 78.3 L ABG PO2/FiO2 Ratio 2.61 ABG HCO3 26.8 H ABG O2 Saturation 96.5 ABG O2 Content 20.3 ABG Base Excess 3.7 A-a Gradient 93.9 Oxyhemoglobin 94.7 Carboxyhemoglobin 0.2 Methemoglobin 0.4 Reduced Hemoglobin 4.7 Total Hemoglobin 15.2 O2 Delivery Device Ventilator O2 Liters/Min Not Reportable Minute Volume Not Reportable Vent Rate 20 Vent Mode Cmv FiO2 30 Tidal Volume 360 PEEP 5 Peak Inspir Pressure Not Reportable Pressure Support Not Reportable POC Capillary Glucose 137 H Post-procedural complaints: none Patient Feedback: Patient satisfied with anesthetic care.
[2021-04-24] MEDS: ATORVASTATIN 20 MG TABLET PO (10:45)
--- NOTE | 2021-04-24 10:49 | PM.DS ---
DS: Admitting Diagnosis Admitting Diagnosis Increasing weakness. DS: Discharge Diagnosis Discharge Diagnosis (1) Acute respiratory failure with hypoxia: Code(s): J96.01 - Acute respiratory failure with hypoxia Status: Acute Assessment and Plan: Patient was discharged on 04/24/2104/10 patient remains on ventilator currently prone position, today's ABG showed hypercapnic with a pCO2 70 pH of 7.19, vent is adjusted by microfilmer and savannah will continue to monitor. 04/11 today patient is in supine position sedated with fentanyl, versed and Nimbex remains intubated seen by intensive and savannah. 04/12 today patient is in supine position sedated with fentanyl, versed and Nimbex remains intubated, DW microfilmer patient being diuresed may help with ventilation will continue to monitor appreciate microfilmer. 04/13 patient remains on ventilator today patient is off Nimbex, and Versed, on fentanyl 25 micrograms/hour infusion, patient remained unresponsive to stimuli, patient seen microfilmer and savannah 04/23 patient was not able to weaned off the ventilator and was seen ENT and trach was placed, patient remains clinically stable, seen by microfilmer and savannah, patient will be transferred to LTAC soon. notes from microfilmer Although patient did get Rajan Rajan vaccine for COVID-19 she was tested positive for COVID-19 PCR. Her clinical picture and radiology findings are all suggestive of COVID 19 pneumonia Continue dexamethasone (started 03/28). She has completed 5 day course of Remdesivir Patient received 1 dose of convalscent plasma In light of rapid deterioration and high CRP, patient was administered Tocilizumab 04/01. QuantiFERON gold test was ordered is indeterminate she has completed 5 day course of Rocephin and azithromycin - inflammatory markers trending down, today patient was accepted by LTAC patient remains stable, her is present in the room. will discharge patient today (2) Pneumonia: Code(s): J18.9 - Pneumonia, unspecified organism Status: Acute Assessment and Plan: upon arrival patient had worsening community-acquired pneumonia has been treated (3) Hypertension: Code(s): I10 - Essential (primary) hypertension Status: Acute Assessment and Plan: on home regimen tolerate (4) Hypothyroidism: Code(s): E03.9 - Hypothyroidism, unspecified Status: Acute Assessment and Plan: home regimen (5) Type 2 diabetes mellitus: Code(s): E11.9 - Type 2 diabetes mellitus without complications Status: Acute Assessment and Plan: on sliding scale and monitor DS: Summary Hospital Course Reason for hospitalization: Chief Complaint: Increasing weakness. <Funmilayo Pickard PA-C - Last Filed: 03/28/21 22:33> Narrative: This is a 65-year-old female with multiple sclerosis who presented to the emergency department earlier today via private vehicle from home for evaluation of increased weakness. Se was seen in this ER in the knot picker cloth hours on Tuesday with weakness x2 days, nasal discharge, and scratchy throat. She was diagnosed with pneumonia and discharged on cefdinir and azithromycin. Despite taking her antibiotic she has continued to feel worse and now has a productive cough and mild shortness breath. Her appetite has not been very good and she has had some nausea though she denies emesis to me. No anosmia and dysgeusia. Some loose stools couple of days ago but that seems to have resolved. No dysuria, urgency, or urinary frequency. No open wounds or skin issues. She denies dysphagia and concerns for aspiration. She received the Rajan and Rajan COVID vaccine in November 2020. No known exposure to those positive for COVID nor does she have any sick contacts. <Funmilayo Pickard PA-C - Last Filed: 03/28/21 22:33> ADDENDUM Patient is positive for COVID-19. Check SARS-CoV-2 antibodies as she was va
--- NOTE | 2021-04-24 10:50 | PCDIET ---
Nutrition Follow-Up Complete: Nutrition Diagnosis: Inadequate oral intake related to Pneumonia as evidenced by poor intake reported. Nutrition Goal: Meet estimated nutritional needs Goal in progress. Patient tolerating Glucerna 1.2 at 50mL/hr goal rate with 30mL water flush every 4 hours. Last recorded weight is 104 kg which is up from last review, but down from admission. Bowel Motility: BM x 2 today. Labs Reviewed: Glu (137) Meds Noted: Lipitor, Fentanyl, Synthroid, Ativan, Lopressor, Protonix Additional Notes: Trach site with gauze pads. Right wrist with skin tear. No documented pressure sores. Will continue to monitor with same goal. Nutrition Monitoring and Evaluation: Follow up every Tuesday/Tuesday.
[2021-04-24 11:12] LABS: Glucose Point of Care 153 mg/dl (65-105)
--- NOTE | 2021-04-24 11:27 | WPDINTPN ---
Progress Note: A&P Assessment and Plan (1) Acute respiratory failure with hypoxia: Code(s): J96.01 - Acute respiratory failure with hypoxia Status: Acute Assessment and Plan: Acute Respiratory failure secondary to COVID-19 pneumonia Aadmitted 03/28 BiPAP Intubated 04/05. patient was placed in prone position for many days for 16-18 hrs/day -patient is currently on pressure support ventilation 08/23, 30% FiO2 - off all sedation -continue bronchodilators -PEG tube placed on 04/20/2021 -tracheostomy scheduled for today, 04/23/2021 (2) Pneumonia due to COVID-19 virus: Code(s): U07.1 - COVID-19; J12.82 - Pneumonia due to coronavirus disease 2018 Status: Acute Assessment and Plan: Although patient did get Rajan Rajan vaccine for COVID-19 she was tested positive for COVID-19 PCR. Completed 10 day course of dexamethasone. She has completed 5 day course of Remdesivir Patient received 1 dose of convalscent plasma patient was administered Tocilizumab 04/01. QuantiFERON gold test was ordered is indeterminate - inflammatory markers trending down, -patient has been taking off isolation after 20 days of testing positive (3) Multiple sclerosis: Code(s): G35 - Multiple sclerosis Status: Acute Assessment and Plan: currently not on any treatment (4) Hypothyroidism: Code(s): E03.9 - Hypothyroidism, unspecified Status: Acute Assessment and Plan: continue levothyroxine (5) Hyperglycemia: Code(s): R73.9 - Hyperglycemia, unspecified Status: Acute Assessment and Plan: sliding scale insulin (6) Sepsis: Code(s): A41.9 - Sepsis, unspecified organism Status: Acute Assessment and Plan: 04/08 patient with elevated WBC count, and will infiltrates on the chest x-ray, status post cefepime and vancomycin 04/10: Sputum cultures growing Yeast -04/09: urine culture: no growth -04/09: blood cultures Coag-negative staph 1/2 bottles. completed 7 day course of cefepime WBC normal now (7) Ileus: Code(s): K56.7 - Ileus, unspecified Status: Acute Assessment and Plan: Resolved Peg tube was placed 04/20 tube feeds have been resumed, tolerating tube feeds Additional Plan DVT prophylaxis - continue Lovenox Stress ulcer prophylaxis - PPI Nutrition - continue tube feeds, Code Status - full code Discussed with patient and updated them with her condition and plan of care. They are aware that patient is, transferred to long-term acute care facility. I answered all questions Total Critical Care Time: 32 minutes This dictation may have been done utilizing a voice recognition system. Attempts have been made to correct errors. However, there may be uncorrected grammatical, spelling, and recognition errors present. Due to a high probability of clinically significant, life threatening deterioration, the patient required my highest level of preparedness to intervene emergently and I personally spent this critical care time directly and personally managing the patient. This critical care time included obtaining a history; examining the patient; pulse oximetry; ordering and review of studies; arranging urgent treatment with development of a management plan; evaluation of patient's response to treatment; frequent reassessment; and discussions with other providers. It was exclusive of separately billable procedures and treating other patients and teaching time. Please see Assessment and Plan section and the rest of the note for further information on patient assessment and treatment Subjective Date/time seen: 04/24/21 11:27 Interval history: Reason for consult: Respiratory failure due to Covid-19. 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
== END 2021-04-24 13:21 | DRG 4 ==
LOC: ANHED 11:12 → ANHIMU 12:45 → ANHICU 04-01 13:41
PROVIDERS: Internal Medicine; Internal Medicine Gastroenterology; Otolaryngology; Physician Assistant; Admitting Provider Family Medicine; Emergency Provider Emergency Medicine; PCP Family Medicine; Visit Provider Family Medicine
PROC: 0DH63UZ Insertion of Feeding Device into Stomach, Percutaneous Approach (ICD-10-PCS; CPT 43246; principal; 2021-04-20 13:00)
DX: A41.89 Other specified sepsis (principal); J96.01 Acute respiratory failure with hypoxia; U07.1 COVID-19; J12.82 Pneumonia due to coronavirus disease 2019; M86.9 Osteomyelitis, unspecified; G81.94 Hemiplegia, unspecified affecting left nondominant side; K56.7 Ileus, unspecified; E87.3 Alkalosis; G35 Multiple sclerosis; E03.9 Hypothyroidism, unspecified; Z98.2 Presence of cerebrospinal fluid drainage device; I25.10 Atherosclerotic heart disease of native coronary artery without angina pectoris; I25.2 Old myocardial infarction; E78.5 Hyperlipidemia, unspecified; I10 Essential (primary) hypertension; Z79.84 Long term (current) use of oral hypoglycemic drugs; E66.9 Obesity, unspecified; Z68.37 Body mass index [BMI] 37.0-37.9, adult; Z87.891 Personal history of nicotine dependence; E11.65 Type 2 diabetes mellitus with hyperglycemia; R00.1 Bradycardia, unspecified; R13.10 Dysphagia, unspecified; K29.70 Gastritis, unspecified, without bleeding; R63.3 Feeding difficulties
CPT/HCPCS: 31500; 36415; 36430; 36569; 36600; 43246; 71045; 71046; 71275; 74018; 80048; 80053; 80202; 81001; 82375; 82565; 82728; 82805; 82948; 83036; 83050; 83605; 83615; 83735; 84100; 84145; 84439; 84443; 84460; 84480; 84484; 85025; 85027; 85055; 85380; 85610; 85730; 86140; 86413; 86480; 86769; 86900; 86901; 87040; 87070; 87077; 87086; 87186; 87205; 87449; 87899; 88305; 88342; 93005; 93970; 94002; 94003; 94667; 96361; 96365; 99291; A9270; C1751; C9113; C9803; J0131; J0330; J0456; J0690; J0692; J0696; J1100; J1650; J1815; J1940; J2060; J2250; J2370; J2405; J2704; J2997; J3010; J3262; J3370; J7030; J7050; P9059; Q9967; U0003; U0005